=== PATIENT | female | born 1970 | race Caucasian/White ===

== ENCOUNTER 2018-11-20 16:42 | Inpatient (IN) | payer MEDICARE, MEDICAID ==
[~2018-11-20] VITALS: Ht 165.1 cm; Wt 133.4 kg
[~2018-11-20 16:42] MED LIST: AMITRIPTYLINE H25 MG PO; AMITRIPTYLINE H50 MG PO; AMLODIPINE BESYL5 MG PO; ASPIR 8181 MG PO; ASPIRIN EC81 MG PO; ATORVASTATIN CA80 MG PO; AUGMENTIN 875-1 EACH PO; CIPROFLOXACIN500 MG PO; DOXYCYCLINE HYC50 MG PO; HUMALOG100 UNITS/ IV; HYDROCHLOROTH12.5 M1 PO; HYDROCHLOROTH12.5 MG PO; HYDROCODON-ACE1 EA10 PO; IBUPROFEN200 MG PO; LANTUS100 UNITS/ SUB-Q; LISINOPRIL40 MG PO; METFORMIN HCL500 MG PO; METOPROLOL TART25 MG PO; MIRENA1 EACH IY; NICORETTE4 M1 BUCCAL; NORVASC5 MG PO; NOVOLOG100 UNITS/ SUB-Q; OXYCODONE HCL5 MG PO; PLAVIX75 MG PO; SIMVASTATIN10 MG PO; VITAMIN D5000 UNI1 PO
[2018-11-20] MEDS ORDERED: AMITRIPTYLINE H75 MG PO (17:08)
[2018-11-20] MEDS ORDERED: AUGMENTIN 875-1 EACH PO (17:14)
[2018-11-20] MEDS ORDERED: CIPRO500 MG PO (17:14)
--- NOTE | 2018-11-20 20:01 | NUR ---
AWAKE AND ALERT. PT WISHES TO TAKE MEDS AT TIMES THAT HE USUALLY TAKES AT HOME, WILL DO THIS. PT IS AWARE OF WT GAIN, DOES NOT WEIGH SELF DAILY AT HOME, WAS INFORMED THAT THIS IS SOMETHING HE SHOULD DO. PT IS AWARE OF RESTRICTING SODIUM AND CURRENT FLUID RESTRICTION.
--- NOTE | 2018-11-20 21:10 | NUR ---
PT ARRIVED TO ROOM 127 VIA STRETCHER AT 2030. PT ABLE TO STAND ON LEFT FOOT AND TRANSFER HERSELF ONTO THE BED. SHE IS ALERT/ORIENTED. REPORTS 10/10 CHRONIC, CONSTANT PAIN TO RIGHT FOOT, 2 TABS NORCO ADMINISTERED. LUNGS CLEAR, RA. HR REGULAR. BOWEL TONES ACTIVE. CB, NO SLIDING SCALE ADMINISTERED AND AFTER CHECKING WITH DR. LIZAMA, 60 UNITS LANTUS ADMINISTERED, PT EDUCATED TO INFORM RN IF SHE STARTS FEELING LIKE HER BLOOD SUGAR IS LOW. SANDWHICH BOX PROVIDED, PT ATE 100%. ALL TOES AMPUTATED. PERIPHERAL PULSES PALPABLE. CHRONIC NEUROPTHY PRESENT IN BLE. LATERAL RIGHT FOOT IS REDDEDNED AND SWOLLEN WITH 4 OPEN SPOTS. CLEANSED SKIN WITH WOUND WASH AND THEN COVERED WITH NON-ADHERENT PAD, 4X4, AND THE WRAPPED WITH GAUZE. SMALL AMOUNT OF SEROSANGUINOUS DRAINAGE NOTED. IV SITES PATENT, FLUIDS INFUSING WNL. PT HAS CALL LIGHT WITHIN REACH, DENIES FURTHER REQUESTS.
--- NOTE | 2018-11-21 | NUR ---
PT APPEARS TO BE SLEEPING, NO APPARENT DISTRESS. RESPIRATIONS EVEN AND UNLABORED, RR:10 SPO2:93% ON RA. HR REGULAR. DRESSING TO RIGHT FOOT HAS SMALL AMOUNT OF SHADOWING PRESENT, OTHERWISE IS INTACT. IVF INFUSING WNL. AFEBRILE. PT IS DUE TO VOID. WILL ALLOW FOR REST AND CONTINUE TO MONITOR.
--- NOTE | 2018-11-21 03:04 | NUR ---
PT CONTINUES TO SLEEP, NO APPARENT DISTRESS. RESPIRATIONS EVEN AND UNLABORED. RR:11, SPO2:96% ON RA, HR:91. IVF INFUSING WNL. DRESSING TO RIGHT FOOT REMAINS IN PLACE.
--- NOTE | 2018-11-21 04:15 | NUR ---
CHECKED PT'S BLOOD SUGAR SINCE IT WAS 77 PRIOR TO RECEIVING LANTUS, CB. ASSESSMENT COMPLETED, NO CHANGES FROM PREVIOUS ASSESSMENT. PT REPORTS NEED TO USE BATHROOM, STATES SHE DOESN'T WANT TO USE BSC. UP WITH SBA TO BATHROOM, PT FAIRLY STEADY ON FEET. VOIDED 600ML AND RETURNED TO BED. PT STATES THAT SHE HAS NO PAIN AT THIS TIME. NO FURTHER REQUESTS, CALL LIGHT WITHIN REACH.
--- NOTE | 2018-11-21 06:14 | NUR ---
PT SLEEPING, NO APPARENT DISTRESS. RESPIRATIONS EVEN AND UNLABORED, RR:22, SPO2:97% ON RA. HR:93.
--- NOTE | 2018-11-21 07:03 | NUR ---
DR. LIZAMA NOTIFIED OF CRITICAL LAB VALUE. HB.8. NO NEW ORDERS RECEIVED AT THIS TIME.
--- NOTE | 2018-11-21 07:30 | NUR ---
REPORT RECIEVED. PT IS RESTFUL IN BED, NO DISTRESS NOTED. IVF PATENT.
--- NOTE | 2018-11-21 07:40 | NUR ---
AMBULATING TO BR TO VOID 1000 ML OF CLEAR ZEESHAN URINE. USING CANE FOR AMBULATION. DENIES DIZZINESS WITH AMBULATION.
--- NOTE | 2018-11-21 08:00 | NUR ---
ASSESSMENT DONE. SMALL AMOUNT OF SEROSANG DRAINAGE NOTED ON DRESSING TO RIGHT FOOT. ACCUCHECK-130. ROUTINE MEDS AND INSULIN GIVEN. TALKED WITH PATIENT ABOUT PLAN OF CARE FOR DAY, PATIENT IS UNDESTANDING, NO QUESTIONS AT THIS TIME.
--- NOTE | 2018-11-21 09:15 | NUR ---
FIRST UNIT PRBC'S HUNG TO SIGHT.
--- NOTE | 2018-11-21 09:30 | NUR ---
TOOK BREAKFAST WELL. DENIES NAUSEA.
--- NOTE | 2018-11-21 10:23 | NUR ---
BLOOD INFUSING W/O PROBLEMS. PATIENT IS AWAKE AND WATCHING TV. DENEIS NEED FO FOR PAIN MEDICATION. IVF INUSING AT TKO RATE BLOOD INFUSING. IV SITES X 2 PATENT.
--- NOTE | 2018-11-21 11:10 | NUR ---
EDITH CERVANTES RN HERE TO PLACE PICC LINE. EDUCATION GIVEN TO PATIENT.
--- NOTE | 2018-11-21 11:45 | NUR ---
2ND UNIT OF BLOOD STARTED.
--- NOTE | 2018-11-21 12:00 | NUR ---
PICC LINE PLACED TO RIGHT UPPER ARM. TOLERATED PROCEDURE WELL.
--- NOTE | 2018-11-21 12:10 | NUR ---
PCXR DONE. WILL WAIT TO USE UNTIL CONFIRMED VIA RADIOLOGIST.
--- NOTE | 2018-11-21 12:16 | NUR ---
PICC INSERTION NOTE. ORDERS RECIEVED TO EVALUATE MANNY FOR POSSIBLE PICC INSERTION. AFTER REVIEWING THE CHART AND INTERVIEWING THE PT, NO ABSOLUTE CONTRAINDICATIONS WERE IDENTIFIED. RISKS AND COMPLICATIONS OF PICC LINES WERE DISCUSSED WITH THE PATIENT AND INFORMED CONSENT WAS SIGNED PRIOR TO THE START OF THE PROCEDURE. THE RIGHT BASILIC VEIN WAS ACCESSED ON THE FIRST ATTEMPT AND THERE WERE NO ISSUES ADVANCING THE GUIDEWIRE, INTRODUCER, OR PICC. BRISK DARK RED NONPULSATILE BLOOD WAS SEEN FLOWING FROM THE INTRODUCER PRIOR TO PICC INSERTION. THE RIGHT BASILIC VEIN WOULD ACCOMIDATE A 8FR LINE OR LARGER PER SITE ADAME U/S. PICC CARE TEAHING WAS DONE AND SHE UNDERSTANDS THAT SHE NEEDS TO SEEK MEDICAL ATTENTION FOR ANY QUESTIONS REGARDING HER PICC.
--- NOTE | 2018-11-21 13:03 | NUR ---
CONFIRMATION RECIEVED, OKAY TO USE PICC LINE.
--- NOTE | 2018-11-21 14:00 | NUR ---
AWAKE,DRESSING TO RIGHT FOOT REDRESSED PER DR. DL ORELLANA DID ASSESS R FOOT WOUND.
--- NOTE | 2018-11-21 18:03 | NUR ---
RESTFUL, WATCHING TV. IS W/O.
--- NOTE | 2018-11-21 19:05 | NUR ---
RECEIEVED REPORT ON PT FROM DAYSHIFT. PT IS AWAKE IN BED AT THIS TIME.
--- NOTE | 2018-11-21 21:16 | NUR ---
IN ROOM TO ASSESS PT AND ADMINISTER EVENING MEDICATIONS. BG CHECKED. DRESSING ON RT FOOT CHANGED PER MD ORDERS. VS TAKEN. PT DENIES FURTHER NEEDS. CALL LIGHT IS WITHIN REACH.
--- NOTE | 2018-11-21 23:06 | NUR ---
PT UP TO BATHROOM, WALKS INDEPENDENTLY WHILE HOLDING ONTO IV POLE. PT VOIDED 400ML AND IS NOW SITTING UP IN CHAIR. CALL LIGHT WITHIN REACH, PT DENIES NEEDS.
--- NOTE | 2018-11-21 23:31 | NUR ---
PT IS AWAKE IN CHAIR. SHE STATES HER PAIN IS "A LITTLE BETTER" BUT PAIN IS NORMAL AND SHE IS USED TO IT. SHE DENIES NEEDS AT THIS TIME. CALL LIGHT IS WITHIN REACH.
--- NOTE | 2018-11-22 00:10 | NUR ---
PT IS AWAKE IN CHAIR, ASSESSMENT AND VS COMPLETE. GAUZE ON RT FOOT HAS SOME DRIED SEROUS DRAINAGE NOTED. PT DENIES NEEDS. CALL LIGHT IS WITHIN REACH.
--- NOTE | 2018-11-22 01:20 | NUR ---
PT BACK TO BED AT THIS TIME. NO REQUESTS, CALL LIGHT WITHIN REACH.
--- NOTE | 2018-11-22 01:40 | NUR ---
PT IS RESTING WITH EYES CLOSED, RESPIRATIONS ARE EVEN AND NONLABORED. CALL LIGHT IS WITHIN REACH.
--- NOTE | 2018-11-22 02:41 | NUR ---
PT IS RESTING WITH EYES CLOSED, RESPIRATIONS ARE EVEN AND NONLABORED ON RA. CALL LIGHT IS WITHIN REACH.
--- NOTE | 2018-11-22 04:52 | NUR ---
ASSESSMENT COMPLETE. PT DENIES NEED FOR PAIN MEDICINE AT THIS TIME. SBA TO RESTROOM AND BACK TO BED. BLOOD DRAWN FOR LABS. PT DENIES NEEDS AT THIS TIME AND CALL LIGHT IS WITHIN REACH.
--- NOTE | 2018-11-22 06:30 | NUR ---
PT IS RESTING WITH EYES CLOSED, RESPIRATIONS ARE EVEN AND NONLABORED. CALL LIGHT IS WITHIN REACH.
--- NOTE | 2018-11-22 06:56 | NUR ---
PT REPORTS PAIN VERY HIGH YET ONLY REQUESTS NORCO AT BEDTIME. DRESSING ON RT FOOT DRAINS SEROUS FLUID AND WAS CHANGED LAST NIGHT PER MD ORDERS. SHE IS AFEBRILE VS WNL OTHER THAN HR A LITTLE TACHY AT TIMES. PICC LINE FLUSHES AND HAS GOOD BLOOD RETURN. SHE IS ON AN ADA DIET AND S/S INSULIN WITH MEALS. SHE AMBULATES SBA.
--- NOTE | 2018-11-22 07:30 | NUR ---
REPORT RECIEVED. PATIENT IS ASLEEP.
--- NOTE | 2018-11-22 08:00 | NUR ---
IS VERY DROWSY, ASSESSMENT DONE. REFUSING BREAKFAST AT THIS TIME. WILL HOLD HUMALOG INSULIN UNTIL READY TO EAT, ACCUCHECK 103. IVF PATENT. DRESSING TO RIGHT FOOT WITH SS DRAINAGE. WILL REDRESS WHEN LESS DROWSY.
--- NOTE | 2018-11-22 09:05 | NUR ---
ROUTINE INSULIN HAS BEEN GIVEN.
--- NOTE | 2018-11-22 09:10 | NUR ---
UP TO B TO VOID, THEN TO CHAIR. IS FAIRLY STABLE TO FEET. TO CHAIR.
--- NOTE | 2018-11-22 09:30 | NUR ---
IN CHAIR EATING BREAKFAST AND WATCHING TV. DENIES PROBLEMS.
--- NOTE | 2018-11-22 10:20 | NUR ---
IN CHAIR WATCHING TV, IS W/O C/O.
--- NOTE | 2018-11-22 12:30 | NUR ---
R FOOT CULT OBTAINED AND SENT TO LAB. R FOOT DRESSING REWRAPPED.
--- NOTE | 2018-11-22 13:00 | NUR ---
SITTING UP IN CHAIR FOR LUNCH. DENIES PAIN.
--- NOTE | 2018-11-22 13:26 | NUR ---
PATIENT SITTING UP IN BEDSIDE CHAIR, WAITING TO BE TRANSFERRED TO [facility] FLOOR. PATIENT EATING LUNCH AT THIS TIME, TELE LEADS REMOVED WITH RNS PERMISSION. PATIENT CALL LIGHT IN REACH. PATIENT BELONGINGS MOVED TO [facility] ROOM 113. NO OTHER NEEDS AT THIS TIME.
--- NOTE | 2018-11-22 13:40 | NUR ---
REPORT TO MED-SURG.
--- NOTE | 2018-11-22 13:46 | NUR ---
TO MED-SURG VIA CHAIR.
--- NOTE | 2018-11-22 13:47 | NUR ---
PT ARRIVED TO ROOM 113 ON MED SURG UNIT VIA CHAIR WITH АЛЕКСАНДР BIGGS AT 1345. VSS. ROOM AIR. NATHALY TO COMPLETE ASSESSMENT SOON. NO NEEDS AT THIS TIME.
--- NOTE | 2018-11-22 15:29 | NUR ---
ORDER RECEIVED FOR WOUND CONSULT. PATIENT INTERVIEWED AND SHE REPORTS LONG-STANDING HISTORY OF CHRONIC WOUND TO RIGHT FOOT (3 YEARS). PATIENT REPORTS SHE IS AWAITING A BKA AND HAS A CONSULT WITH DR. BAIRD IN [place] ON 12/04/18. PATIENT REPORTS AN ARTERIAL STUDY COMPLETED RECENTLY AND DR BLAS REFERRED HER TO [place] OR [facility]. SWELLING AND REDNESS ARE NOTED TO THE LATERAL ASPECT OF THE RIGHT FOOT. 4 OPEN WOUNDS ARE NOTED AND APPEAR TO BE SMALLER THAN WHEN ORIGINALLY ADMITTED ON 11/20/18. WOUNDS ARE CLEANED WITH BETADINE SOLUTION, FLUFFS GAUZE APPLIED OVER OPEN WOUNDS AND ROLL GAUZE APPLIED AND SECURED W/TAPE. PATIENT TOLERATES THE DRESSING CHANGE WELL AND AGREES WITH THE PLAN OF CARE, WHICH IS DRAINAGE MANAGEMENT AT THIS POINT. VERBAL REPORT GIVEN TO NATHALY AND DR SCHNEIDER AND BOTH VERBALIZE UNDERSTANDING.
--- NOTE | 2018-11-22 17:57 | NUR ---
PT SITTING UP IN CHAIR FOR DINNER. REPORTS 10/10 PAIN CONSTANT. REPORTS PAIN MEIDICATION DOES NOT DECREASE HER PAIN LEVEL IN LEGS. NO GRIMACING PRESENT, PT APPEARS RELAXED. DENIES NEEDS AT THIS TIME.
--- NOTE | 2018-11-22 19:05 | NUR ---
IN ROOM FOR REPORT, PT IS AWAKE IN CHAIR. SHE DENIES NEEDS AT THIS TIME. CALL LIGHT IS WITHIN REACH.
--- NOTE | 2018-11-22 20:35 | NUR ---
VITALS DONE. PT NEEDS NOTHING ELSE AT THIS TIME.
--- NOTE | 2018-11-22 21:45 | NUR ---
IN ROOM TO ASSESS PT AND ADMINISTER MEDICATIONS. PT REPORTS PAIN AT "92" PRN NORCO PROVIDED. PT REPORTS ONLY TAKING NORCO AT BEDTIME TO HELP DULL TO PAIN TO SLEEP. DRESSING ON RT FOOT IS INTACT WITH SEROUS DRAINAGE NOTED. PER ORDERS DRESSING IS TO BE CHANGED DAILY AND PRN, PT DENIED HAVING IT CHANGED TONIGHT SINCE IT WAS JUST CHANGED. PT HAS A POSITIVE ATTITUDE ABOUT THE POSSIBLE AMPUTATION OF LEG. FRESH WATER IS AT BEDSIDE AND PT DENIES FURTHER NEEDS. CALL LIGHT IS WITHIN REACH.
--- NOTE | 2018-11-22 22:56 | NUR ---
PT IS AWAKE IN CHAIR, SHE DENIES NEEDS AT THIS TIME. CALL LIGHT IS WITHIN REACH. SHE REPORT PAIN IS DECREASED BUT SHE CONTINUES TO RATE IT IN THE "90'S" WHICH IS NORMAL PER PT.
--- NOTE | 2018-11-23 00:39 | NUR ---
PT IS RESTING WITH EYES CLOSED, RESPIRATIONS ARE EVEN AND NONLABORED. CALL LIGHT IS WITHIN REACH.
--- NOTE | 2018-11-23 02:14 | NUR ---
PT IS RESTING WITH EYES CLOSED, RESPIRATIONS ARE EVEN AND NONLABORED. CALL LIGHT IS CLOSE.
--- NOTE | 2018-11-23 04:13 | NUR ---
PT IS RESTING WITH EYES CLOSED, RESPIRATIONS ARE EVEN AND NONLABORED. CALL LIGHT IS CLOSE.
--- NOTE | 2018-11-23 05:52 | NUR ---
BLOOD DRAWN FROM PICC LINE, PT DENIES NEEDS AT THIS TIME. SHE WOULD LIKE TO WAIT ON DRESSING CHANGE UNTIL LATER TODAY. CALL LIGHT IS WITHIN REACH.
--- NOTE | 2018-11-23 05:53 | NUR ---
PT SLEPT WELL THROUGH THE NIGHT. DRESSING CHANGES ARE DAILY/PRN. PT WANTED TO WAIT UNTIL LATER TODAY FOR ANOTHER CHANGE. SHE IS ON AN ADA DIET, SHE IS SBA WITH A CANE. SHE STARTED BOWEL CARE LAST NIGHT. PICC IN RT UPPER ARM IS HEPLOCKED, HAS BOOD BLOOD RETURN AND FLUSHES WELL. SHE RECEIVES IV ERTAPENUM. BTKA CONSULT IS SCHEDULED FOR Dec. POSSIBLE DC TODAY IF IV ABX THERAPY IS WORKED OUT.
--- NOTE | 2018-11-23 06:14 | NUR ---
VITALS AND I&OS DONE AND CHARTED. FRESH ICE WATER GIVEN. BEDSIDE TABLE AND CALL LIGHT IN REACH.
--- NOTE | 2018-11-23 07:00 | NUR ---
BEDSIDE HANDOFF REPORT RECEIVED FROM TRANSIT VEHICLE INSPECTOR RN. PT SLEEPING, LEFT UNDISTURBED.
--- NOTE | 2018-11-23 08:05 | NUR ---
DID PATIENT'S BLOOD SUGAR. BROUGHT IN HER BREAKFAST. SHE SAID SHE WOULD LIKE TO TAKE A SHOWER SOMETIME TODAY IF SHE CAN.
--- NOTE | 2018-11-23 09:10 | NUR ---
PT RETURNING FROM BATHROOM, AMBULATING WITHOUT DIFFICULTY. PT DENIES PAIN. PT ON ROOM AIR, LUNG SOUNDS CLEAR. PT WITH EDEMA TO BLE, 2+. DRESSING TO RIGHT FOOT SATURATED, DISCUSSED SHOWER AND THEN DRESSING CHANGE. PICC LINE TO RUE HEP LOCKED, DRESING INTACT. DISCUSSED PLAN OF CARE FOR THE DAY. MORNING MEDICATIONS AND ASSESSMENT COMPLETED. PT DENIES OTHER NEEDS AT THIS TIME.
[2018-11-23] MEDS ORDERED: ST. JOSEPH ASPI81 MG PO (10:51)
--- NOTE | 2018-11-23 11:45 | NUR ---
PT GIVEN 5 UNITS HUMALIN AND 3 UNITS SS HUMALOG FOR BLOOD GLUCOSE 204. PT EATING LUNCH. PT TO SHOWER AFTER LUNCH, THEN PLAN FOR DRESSING CHANGE TO FOOT. PICC LINE FLUSHED, PATENT, BLOOD RETURN PRESENT, HEP LOCKED. PT DENIES OTHER NEEDS AT THIS TIME.
[2018-11-23] MEDS ORDERED: VICTOZA 2-0.6 MG/0.1 SUB-Q (11:51)
--- NOTE | 2018-11-23 11:52 | NUR ---
MED REC COMPLETE
--- NOTE | 2018-11-23 11:54 | NUR ---
PT SITTING IN CHAIR, WATCHING TV. SHE IS ALERT AND ORIENTED TO SELF-VERY ENGAGED IN CONVERSATION. PT MENTIONED THAT SHE IS WAITING FOR A CONSULTATION FROM A VASCULAR SURGEON FOR AMPUTATION OF R LEG BELOW THE KNEE. PT SEEMS VERY MATTER OF FACT SHE STATES. SEEMS TO BE ALMOST CAVALIAR ABOUT WHAT LIES AHEAD. PT HAS A CHILD TO CARE FOR AND NEEDS TO BE BETTER ABLE TO BE ABOUT THIS. PT DECLINED PRAYER, GAVE A BLESSING, PT THANKED ME. WILL FOLLOW NEEDED
--- NOTE | 2018-11-23 14:15 | NUR ---
PT COMPLETED WITH SHOWER. DRESSING CHANGED PER ORDER, WOUND WITH 3 OPENINGS ERASER SIZE, SEROSANGUINOUS DRAINAGE TO OLD DRESSING, SITE CLEANSED WITH BETADINE, CLEAN NON ADHERENT DRESSING AND GAUZE ROLL APPLIED, SECURED WITH TAPE. PICC LINE DRESSING COMPLETED DUE TO DRESSING PEELING FROM CORNER. EDEMA TO BLE UNCHANGED. PT DENIES OTHER NEEDS AT THIS TIME. MD TO BEDSIDE, DISCUSSED TRANSFER TO [facility].
--- NOTE | 2018-11-23 17:25 | NUR ---
PT SITTING IN CHAIR EATING DINNER. IV REBA STARTED, OK FROM PHARMACY TO GIVE DOSE EARLY DUE TO PENDING TRANSPORT FOR TRANSFER. PT GIVEN 1 UNIT SS INSULIN FOR BLOOD GLUCOSE 159. PT DENIES OTHER NEEDS AT THIS TIME. UPDATED ON ESTIMATED TIME FOR TRANSPORT.
--- NOTE | 2018-11-23 18:20 | NUR ---
IV ABX INFUSION COMPLETED. PT HEPARIN LOCKED. PT DENIES OTHER NEEDS AT THIS TIME.
--- NOTE | 2018-11-23 18:45 | NUR ---
REPORT CALLED TO PEARL AT [facility].
--- NOTE | 2018-11-23 20:41 | NUR ---
[facility] HERE TO TRANSPORT PT TO [facility]. ALERT AND ORIENTED, READY FOR DC, C/O MILD LEGS PAIN BUT DENIES ROBI FOR PAIN MEDS. USES CANE TO GET ABOUT. PICC LINE INTACT.
--- NOTE | 2018-11-23 20:42 | NUR ---
DC TO [facility] AT THIS TIME VIA STRETCHER, ALL BELONGINGS AND DC INSTRUCTIONS WITH PT
== END 2018-11-23 20:43 | disposition short-term general hospital (02) | DRG 872 ==
LOC: ED 16:42 → CCU 19:06 → MS 11-22 13:45
PROVIDERS: ADMIT Internal Medicine
PROC: 02HV33Z Insertion of Infusion Device into Superior Vena Cava, Percutaneous Approach (ICD-10-PCS; principal; 2018-11-23)
DX: A40.1 Sepsis due to streptococcus, group B (principal); E11.51 Type 2 diabetes mellitus with diabetic peripheral angiopathy without gangrene; Z79.4 Long term (current) use of insulin; F17.210 Nicotine dependence, cigarettes, uncomplicated; D64.9 Anemia, unspecified; I10 Essential (primary) hypertension; E11.621 Type 2 diabetes mellitus with foot ulcer; L97.519 Non-pressure chronic ulcer of other part of right foot with unspecified severity; E78.5 Hyperlipidemia, unspecified
CPT/HCPCS: 36415; 36430; 36569; 36573; 71045; 80048; 80053; 83540; 83605; 83615; 83735; 84100; 84466; 85025; 85651; 86140; 86850; 86900; 86901; 86920; 87040; 87070; 87075; 87205; 96374; 99285-25; C1751; J1335; J1650; J1815; J3475; J7030; J7040; P9016

== ENCOUNTER 2019-11-15 18:42 | Emergency (ER) | payer MEDICARE, MEDICAID ==
[~2019-11-15] VITALS: Ht 165.1 cm; Wt 133.4 kg
[~2019-11-15 18:42] MED LIST changes: +AMITRIPTYLINE H75 MG PO; +CIPRO500 MG PO; +ST. JOSEPH ASPI81 MG PO; +VICTOZA 2-0.6 MG/0.1 SUB-Q
--- OUTSIDE RECORDS SUMMARY | 2019-11-15 18:46 | XMS ---
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 [place] has no Care Guidelines for this patient. Fani VISIT COUNT (12 MO.) 1 [facility] 2 [facility] TOTAL 3 NOTE: Visits indicate total known visits. ED/C VISIT TRACKING (12 MO.) 11/15/2019 18:43 [facility] [place] TYPE: Emergency COMPLAINT: - N/V/D [facility]: Emergency DIAGNOSES: - Infection following a procedure, deep incisional surgical site, initial encounter - Referral - Wound Check - Other specified abnormal findings of blood chemistry - Acquired absence of right leg below knee 11/20/2018 16:43 [facility]IAN Amin TYPE: Emergency COMPLAINT: - FEVER INPATIENT VISIT TRACKING (12 MO.) [facility] TYPE: General Medicine DIAGNOSES: - Infection following a procedure, deep incisional surgical site, initial encounter - Acquired absence of right leg below knee - Other specified abnormal findings of blood chemistry 12/05/2018 14:02 [facility] TYPE: Inpatient Rehab DIAGNOSES: - Right BKA 11/23/2018 22:26 [facility] TYPE: Recovery DIAGNOSES: - uti 11/20/2018 19:06 [facility] Amin TYPE: Medical Surgical COMPLAINT: - SEPSIS DIAGNOSES: - 1 Type 2 diabetes w diabetic peripheral angiopath w/o gangren - Anemia, unspecified - Anemia, unspecified - group home (current) use of insulin - 1 Type 2 diabetes mellitus with foot ulcer - Hyperlipidemia, unspecified - Sepsis due to streptococcus, group B Sepsis du - Nicotine dependence, cigarettes, uncomplicated - Essential (primary) hypertension - 1 Type 2 diabetes w diabetic peripheral angiopath w/o gangren - group home (current) use of insulin - Non-prs chronic ulcer oth prt right foot w unsp severity - Non-prs chronic ulcer oth prt right foot w unsp severity - 1 Type 2 diabetes mellitus with foot ulcer - Essential (primary) hypertension - Hyperlipidemia, unspecified - Nicotine dependence, cigarettes, uncomplicated [email or web address]
== END 2019-11-15 21:36 | disposition home or self-care (01) ==
LOC: ED 18:42
DX: K52.9 Noninfective gastroenteritis and colitis, unspecified (principal); E11.9 Type 2 diabetes mellitus without complications; I10 Essential (primary) hypertension; E78.00 Pure hypercholesterolemia, unspecified; Z79.899 Other long term (current) drug therapy
CPT/HCPCS: 80053; 81001; 83735; 85025; 96374; 99284-25; J2550; J7030

== ENCOUNTER 2020-01-18 04:27 | Emergency (ER) | payer MEDICARE, MEDICAID ==
[~2020-01-18] VITALS: Ht 165.1 cm; Wt 133.6 kg
--- OUTSIDE RECORDS SUMMARY | 2020-01-18 04:30 | XMS ---
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 E[facility] (12 MO.) [facility] TOTAL 3 NOTE: Visits indicate total known visits. ED/UCC VISIT TRACKING (12 MO.) 01/18/2020 04:27 [facility] TYPE: Emergency COMPLAINT: - WEAKNESS 11/15/2019 18:43 [facility] TYPE: Emergency COMPLAINT: - N/V/D DIAGNOSES: - Essential (primary) hypertension - Nausea with vomiting, unspecified - Pure hypercholesterolemia, unspecified - Noninfective gastroenteritis and colitis, unspecified - Other residential (current) drug therapy - 1 Type 2 diabetes mellitus without complications 01/29/2019 13:01 [facility] [place] TYPE: Emergency DIAGNOSES: - Infection following a procedure, deep incisional surgical site, initial encounter - Referral - Wound Check - Other specified abnormal findings of blood chemistry - Acquired absence of right leg below knee INPATIENT VISIT TRACKING (12 MO.) 01/29/2019 13:01 [facility] Annabel BRYAN TYPE: General Medicine DIAGNOSES: - Infection following a procedure, deep incisional surgical site, initial encounter - Acquired absence of right leg below knee - Other specified abnormal findings of blood chemistry [email or web address]
[2020-01-18] MEDS ORDERED: NOVOFINE AUTOC1 EACH MISC (05:18)
[2020-01-18] MEDS ORDERED: HUMALOG100 UNIT/2 SUB-Q (05:18)
[2020-01-18] MEDS ORDERED: VICTOZA 2-0.6 MG/0.1 SUB-Q (05:19)
[2020-01-18] MEDS ORDERED: PLAVIX75 MG PO (05:19)
--- NOTE | 2020-01-18 09:51 | EKG ---
[facility] [address] [place] [address] Signed Sinus tachycardia Otherwise normal ECG When compared with ECG of 12-JAN-2017 14:31, Nonspecific T wave abnormality no longer evident in Inferior leads Confirmed by SUSU SALINAS MD ([id number]) on 01/18/2020 9:51:35 AM Electronically Signed By: SUSU SALINAS MD 01/18/20 0951 PATIENT NAME: MANNY MORALES Electrocardiogram DATE OF : 70 PHYSICIAN: SUSU SALINAS MD REPORT #: [id number] REPORT IS CONFIDENTIAL AND NOT TO BE RELEASED WITHOUT AUTHORIZATION
== END 2020-01-18 15:45 | disposition short-term general hospital (02) ==
LOC: ED 04:27
DX: A41.9 Sepsis, unspecified organism (principal); E11.10 Type 2 diabetes mellitus with ketoacidosis without coma; N17.9 Acute kidney failure, unspecified; N12 Tubulo-interstitial nephritis, not specified as acute or chronic; I10 Essential (primary) hypertension; Z88.1 Allergy status to other antibiotic agents; Z88.8 Allergy status to other drugs, medicaments and biological substances; Z88.5 Allergy status to narcotic agent; Z79.899 Other long term (current) drug therapy; Z79.4 Long term (current) use of insulin
CPT/HCPCS: 51702; 71045; 74176; 80053; 81001; 82010; 83605; 85025; 87040; 87077; 87088; 87186; 87502; 93005; 93010; 99291; 99292; J0692; J1815; J7030

== ENCOUNTER 2021-06-09 23:18 | Inpatient (IN) | payer MEDICARE, MEDICAID ==
[~2021-06-09] VITALS: Ht 165.1 cm; Wt 139.2 kg
[~2021-06-09 23:18] MED LIST changes: -AMITRIPTYLINE H75 MG PO; +AMITRIPTYLINE100 MG PO; +HUMALOG100 UNIT/2 SUB-Q; -MIRENA1 EACH IY; +MIRENA1 EACH VAGINAL; +NOVOFINE AUTOC1 EACH MISC
[2021-06-10] MEDS ORDERED: TRULICITY1.5 MG/0.5 SUB-Q (02:57)
--- NOTE | 2021-06-10 03:40 | NUR ---
PT ARRIVED TO ROOM 128 AT 0228 VIA STRETCHER. PT ABLE TO STAND AND PIVOT ONTO BED. 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 LUNGS COARSE WITH CRACKLES NOTED IN BASES, 10L VIA OXYMASK IN PLACE, R.T. IN TO SET UP BIPAP. HR REGULAR, RATE IN 90'S. BOWEL TONES ACTIVE, DENIES NAUSEA. SKIN DRY/FLAKY, ALL TOES AMPUTATED TO LEFT FOOT AND RIGHT LEG AKA. NON-PITTING EDEMA PRESENT IN LLE. IV INTACT AND PATENT, FLUIDS INFUSING PER EMAR. PT UP TO BSC, VOIDED 450ML CONCENTRATED URINE, AND RETURNED TO BED. PT DENIES SOB AND CHEST PAIN AT THIS TIME. DENIES FURTHER REQUESTS. CALL LIGHT WITHIN REACH. R.T. IN ROOM AT THIS TIME TO PLACE PT ON BIPAP 10/28 @ 50%.
--- NOTE | 2021-06-10 04:47 | NUR ---
PT WORE BIPAP FROM 0400 TO ~0440 AND WAS ABLE TO SLEEP A BIT. WOKE UP COUGHING AND NEEDED TO TAKE A BREAK FROM BIPAP. OXYMASK IN PLACE AT 10L. PT DENIES NEEDS, CALL LIGHT WITHIN REACH.
--- NOTE | 2021-06-10 05:38 | NUR ---
TITRATED OXYGEN TO 12L FOR SPO2 88-89%, PT DOES NOT WANT TO WEAR BIPAP AT THIS TIME.
--- NOTE | 2021-06-10 06:00 | NUR ---
INFUSION OF 1L NS COMPLETED, IV SALINE LOCKED AND INTACT. SCHEDULED LEVAQUIN GIVEN. FRESH ICE WATER PROVIDED. PT DENIES NEEDS AT THIS TIME.
--- NOTE | 2021-06-10 09:23 | NUR ---
resistance welder assisted pt. to use the commode. no other needs at this time
--- NOTE | 2021-06-10 09:30 | NUR ---
Spoke with Sharifa. She states she lives in her two story, childhood home. She lives on the main floor and her mom and brother live in an apartment on the lower floor. 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 She uses [employer] for energy assistance and is aware of food thomas in the area. Pt states she does use the food bank, but only uses when needed as there are people who are more needy. Pt denies need for transportation as her mom or brother drive her. Pt does all the cooking and mom does the cleaning. Pt denies needs at this time, but does state she has not had new glasses in 10 years as she cannot afford the eye exam. I will find a resource for this. Pt plans on dc to home with her family when she is cleared medically Pt has been disabled for 6 years.
--- NOTE | 2021-06-10 10:27 | NUR ---
DR. SALINAS IN TO ASSESS PT AND UPDATE ON PLAN OF CARE.
--- NOTE | 2021-06-10 11:12 | NUR ---
THIS RN IN TO DRAW ORDERED LABS AND ADMINISTER SCHEDULED MEDICATIONS. PT SITTING UP IN BED ON 5L O2 NC, SPO2 AT 92%. PT IS ALERT AND ORIENTED AT THIS TIME. NEW IV STARTED ON R ARM BY CATINA UP, RAIN AND BMP DRAWN AT THAT TIME. SCHEDULED MEDICATIONS ADMINISTERED ALONG WITH PRN COUGH MEDICATIONS (SEE MAR) PT HAD COMPLAINTS OF A COUGH. PT NOW SITTING UP IN BED ON THE PHONE, WATER PROVIDED. PT REPORTS NO FURTHER NEEDS AT THIS TIME WHEN ASKED, WILL CONTINUE PLAN OF CARE. CALL LIGHT IN REACH, BED IN LOWEST POSITION.
--- NOTE | 2021-06-10 11:23 | NUR ---
Left message for CHW asking if she knows of any programs in the area for free glasses. Received fax from Audrey with paper work to request free glasses and from [employer]. Paper work given to Sharifa and requested she complete.
--- NOTE | 2021-06-10 11:51 | NUR ---
LAB CALLED DOWN TO NOTIFY OF PT'S CRITICAL LAB VALUE, GLUCOSE WAS 616. BLOOD GLUCOSE CHECKED AT BEDSIDE, READING STATED IT WAS HIGH, >600. DR. SALINAS NOTIFIED OF PT'S POTASSIUM AND GLUCOSE LEVELS. DR SALINAS TO INPUT NEW ORDERS, WILL CONTINUE PLAN OF CARE.
--- NOTE | 2021-06-10 12:29 | NUR ---
THIS RN IN TO ASSESS PT AND ADMINISTER SCHEDULED MEDICATION. PT SITTING UP IN BED AT THIS TIME AWAKE AND ALERT ON 5L O2 NC, SPO2 AT 91%. SCHEDULED MEDICATION ADMINISTERED ORDERED (SEE MAR) AND PT NOW ON ORDERED IVF. PT ASSESSED AT THIS TIME, LUNGS ARE COARSE THROUGHOUT, PT DENIES SOB. PT ALSO DENIES ANY PAIN AT THIS TIME. PT NOW EATING LUNCH AT THIS TIME AND REPORTS NO FURTHER NEEDS, WILL CONTINUE PLAN OF CARE. CALL LIGHT IN REACH, BED IN LOWEST POSITION.
--- NOTE | 2021-06-10 12:45 | NUR ---
THIS RN IN TO ADMINISTER SCHEDULED MEDICATION KAYEXELATE. PT EATING LUNCH AT THIS TIME AND STATES SHE WILL DRINK HER MEDICATION SHORTLY. PT REPORTS NO FURTHER NEEDS AT THIS TIME, WILL CONTINUE PLAN OF CARE
--- NOTE | 2021-06-10 14:03 | NUR ---
PT ALERT, ORIENTED AND SITTING ON SIDE OF BED. PT STATED SHE DID NOT SLEEP WELL LAST NIGHT-BUT NEVER GETS MUCH SLEEP IN HOSPITALS. HAD GOOD VISIT [facility] PT, STILL TRIES TO KEEP A SENSE OF HUMOR. PT REQUESTED PRAYER, GAVE G.POST AND BLESSING WILL FOLLOW
--- NOTE | 2021-06-10 14:42 | NUR ---
pt. up in chair. bed bath, hair done, new gown, bed linens changed, no other needs at this time. call light with in reach
--- NOTE | 2021-06-10 14:51 | NUR ---
BLOOD SUGAR ASSESSED AT THIS TIME AND WAS 429, SCHEDULED INSULIN ADMINISTERED PER SLIDING SCALE. SCHEDULED MEDICATIONS ADMINISTERED (SEE MAR). CATINA UP AND DIAN BADILLO IN TO HELP PT WITH A BED BATH/WIPE. LINENS CHANGED AT THIS TIME. PT NOW SITTING AT THE BEDSIDE RECLINER IVF INFUSING AND ON 4.5 L O2 NC, SPO2 AT 91%. PT REPORTS NO FURTHER NEEDS AT THIS TIME, PT FINISHED DRINKING KAYEXELATE, WILL CONTINUE PLAN OF CARE. CALL LIGHT WITHIN REACH.
--- NOTE | 2021-06-10 15:06 | NUR ---
THIS RN IN TO CHECK ON PT. PT SITTING IN BEDSIDE RECLINER AND WAS HAVING A SMALL COUGHING FIT. PT SPO2 AT 93% ON THE 4.5 L O2 NC. PT REQUESTED PRN COUGH MEDICATION. PRN ROBITUSSIN ADMINSITERED AT THIS TIME. PT REPORTS NO FURTHER NEEDS AT THIS TIME. PT SITTING AT BEDSIDE RECLINER, CALL LIGHT IN REACH, WILL CONTINUE PLAN OF CARE.
--- NOTE | 2021-06-10 15:17 | NUR ---
PHYSICAL THERAPIST IN ROOM WITH PT AT THIS TIME.
--- NOTE | 2021-06-10 15:42 | NUR ---
pt up to bedside commode to urinate. (700ml) then back to chair. no other needs at this time. call light within reach
--- NOTE | 2021-06-10 16:01 | EKG ---
[facility] [address] [facility] [place] [address] Signed Normal sinus rhythm Low voltage QRS Borderline ECG When compared with ECG of 18-JAN-2020 05:01, No significant change was found Confirmed by SUSU SALINAS MD ([id number]) on 06/10/2021 4:01:05 PM Electronically Signed By: SUSU SALINAS MD 06/10/211 PATIENT NAME: MANNY MORALES Electrocardiogram DATE OF : 70 PHYSICIAN: SUSU SALINAS MD REPORT #: [id number] REPORT IS CONFIDENTIAL AND NOT TO BE RELEASED WITHOUT AUTHORIZATION
--- NOTE | 2021-06-10 16:24 | NUR ---
PT. SITTING AT RECLINER AT THIS TIME ON 3.5L O2 NC AWAKE AND ALERT. PT REPORTS NO PAIN AND DENIES SHORTNESS OF BREATH AT THIS TIME. PT ASSESSED AT THIS TIME, LUNGS DIMINISHED THROUGHOUT WITH WHEEZES PRESENT. R.T INFORMED THIS RN HE WOULD BE IN SOON TO DO A NEB TREATMENT. PT REPORTS NO NEEDS AT THIS TIME, WILL CONTINUE PLAN OF CARE. CALL LIGHT WITHIN REACH.
--- NOTE | 2021-06-10 16:48 | NUR ---
Praveen IN PT'S ROOM AT THIS TIME ASSESSING PT AND DOING SCHEDULED NEB TREATMENT.
--- NOTE | 2021-06-10 16:51 | NUR ---
PT PLACED ON 3L O2 NC AT THIS TIME BY R.T. PT MAINTAINING SPO2 AT 94-97%. WILL CONTINUE PLAN OF CARE.
--- NOTE | 2021-06-10 17:23 | NUR ---
THIS RN IN TO ADMINISTER SCHEDULED MEDICATION. PT SITTING IN RECLINER AWAKE AND ALERT ON 3L O2 NC, SPO2 AT 91%. BLOOD SUGAR CHECKED AND WAS 402. INSULIN ADMINISTERED ORDERED AND PER SLIDING SCALE ALONG WITH SCHEDULED ATORVASTATIN. PT REPORTS NO FURTHER NEEDS AT THIS TIME AND IS NOW EATING HER DINNER, WILL CONTINUE PLAN OF CARE. CALL LIGHT IN REACH, IVF INFUSING ORDERED.
--- NOTE | 2021-06-10 18:01 | NUR ---
PT SITTING AT BEDSIDE RECLINER AT THIS TIME AWAKE AND ALERT. PT REPORTS NO SHORTNESS OF BREATH. SPO2 NOTED TO BE 88-89%, O2 TITRATED TO 4L NC SPO2 NOW AT 90-91%. PT FINISHED WITH DINNER AT THIS TIME AND REPORTS NO FURTHER NEEDS, CALL LIGHT IN REACH, BED IN LOWEST POSITION. WILL CONTINUE PLAN OF CARE.
--- NOTE | 2021-06-10 18:37 | NUR ---
THIS RN IN TO ADMINISTER KAYEXELATE. PT ABLE TO TAKE ALL MEDICATION AT ONCE WITH GATORADE. PT REPORTS NO FURTHER NEEDS AT THIS TIME AND IS AWAKE AND ALERT ON 4.5 L O2 NC, SPO2 AT 94%. WILL CONTINUE PLAN OF CARE, CALL LIGHT WITHIN REACH.
[2021-06-10] MEDS ORDERED: GABAPENTIN300 MG PO (18:43)
--- NOTE | 2021-06-10 19:00 | NUR ---
IVF COMPLETE AT THIS TIME, PT SALINE LOCKED. PT REPORTS NO FURTHER NEEDS AT THIS TIME, WILL CONTINUE PLAN OF CARE.
--- NOTE | 2021-06-10 20:05 | NUR ---
assisted patient to bsc. patient did well. required assistance with austin care. patient voided 600 mls. fresh ice water provided. patient request pm snack, supervisor cleaning and annealing called.
--- NOTE | 2021-06-10 20:33 | NUR ---
SHIFT REPORT RECEIVED FROM CATINA BURGESS. PT SITTING UP IN CHAIR AT THIS TIME. DENIES PAIN. LUNGS DIM WITH WHEEZES THROUGHOUT, OXYGEN AT 4.5L VIA NC. HR REGULAR. DENIES CHEST PAIN OR SOB. BOWEL TONES ACTIVE, DENIES NAUSEA. SKIN GROSSLY INTACT, RIGHT AKA AND LEFT TOE AMPUTATIONS PRESENT. EDEMA IN LLE. IV SITES INTACT AND PATENT, SALINE LOCKED. DISCUSSED PLAN OF CARE WITH PT, QUESTIONS ANSWERED. NO FURTHER REQUESTS AT THIS TIME, CALL LIGHT WITHIN REACH.
--- NOTE | 2021-06-10 21:24 | NUR ---
SCHEDULED MEDICATIONS GIVEN PER EMAR. CB, 15 UNITS HUMALOG GIVEN. BLOOD DRAWN FROM IV FOR SCHEDULED BMP LAB. PT CONTINUES TO SIT UP IN CHAIR, DENIES NEEDS. CALL LIGHT WITHIN REACH.
--- NOTE | 2021-06-10 22:02 | NUR ---
SCHEDULED MED GIVEN PER EMAR. PT CONTINUES TO SIT UP IN CHAIR, STATES SHE IS UNSURE IF SHE'LL BE ABLE TO SLEEP TONIGHT. OXYGEN REMAINS IN PLACE, PT DENIES COMPLAINTS. CALL LIGHT WITHIN REACH.
--- NOTE | 2021-06-11 | NUR ---
ASSESSMENT COMPLETED, PT CONTINUES TO SIT UP IN CHAIR. LUNGS SOUND DIM/COARSE THROUGHOUT, 4L O2 VIA NC IN PLACE. VITAL SIGNS STABLE. REMAINDER OF ASSESSMENT UNCHANGED. FRESH ICE WATER PROVIDED, PT DENIES FURTHER REQUESTS AT THIS TIME. CALL LIGHT AND BELONGINGS WITHIN REACH.
--- NOTE | 2021-06-11 02:13 | NUR ---
CB, 15 UNITS HUMALOG ADMINISTERED. PT UP TO BSC, VOIDED 800ML URINE AND RETURNED TO CHAIR. FRESH ICE WATER PROVIDED. PT DENIES FURTHER NEEDS AT THIS TIME.
--- NOTE | 2021-06-11 02:50 | NUR ---
PT REPORTING THAT HER PHANTOM PAIN IN RLE IS MORE PAINFUL & BOTHERING HER MORE. TELEPHONE ORDER RECEIVED FOR PRN NORCO AND ONE TIME DOSE OF GABAPENTIN, GIVEN AT THIS TIME. PT DENIES FURTHER REQUESTS, CALL LIGHT WITHIN REACH.
--- NOTE | 2021-06-11 04:17 | NUR ---
ASSESSMENT COMPLETED. PT STATES PHANTOM LIMB PAIN IS "ABOUT THE SAME" BEFORE. LUNGS ARE DIM THROUGHOUT WITH EXPIRATORY WHEEZES IN UPPERS AND COARSE IN LOWERS. OXYGEN REMAINS AT 4L NC. REMAINDER OF ASSESSMENT UNCHANGED. PT DENIES FURTHER REQUESTS AT THIS TIME, CALL LIGHT WITHIN REACH.
--- NOTE | 2021-06-11 05:56 | NUR ---
SCHEDULED MEDS GIVEN PER EMAR. BLOOD DRAWN FROM SALINE LOCK FOR MORNING LABS. PT DENIES NEEDS AT THIS TIME.
--- NOTE | 2021-06-11 09:09 | NUR ---
excelsior cutter assisted pt to use bedside commode. no other needs at this time
[2021-06-11] MEDS ORDERED: LEVOFLOXACIN250 MG PO (09:40)
[2021-06-11] MEDS ORDERED: IPRAT-ALBUT 0.5-3 ML INH (09:41)
[2021-06-11] MEDS ORDERED: NICOTINE LOZENGE4 MG BUCCAL (09:41)
[2021-06-11] MEDS ORDERED: AMLODIPINE BESY10 MG PO (09:42)
[2021-06-11] MEDS ORDERED: BENZONATATE100 MG PO (09:42)
[2021-06-11] MEDS ORDERED: PREDNISONE20 MG PO (09:44)
[2021-06-11] MEDS ORDERED: AEROECLIPSE II1 EACH MISC (09:45)
--- NOTE | 2021-06-11 09:45 | NUR ---
Received order from Dr. Layne for Nebulizer and Ipratropim/albuterol and home qualifier in process. Face sheet, RX for meds/Nebulizer and qualifer, dc summary and H&P faxed to [facility] (pts preference as she had In Home in the past). Pt denies other needs for dc and would like to dc as soon as possible. Discussed 02 will need to arrive from [facility] and we will need to confirm time it will be here before pt can dc. Understanding stated. Mom will transport her home.
[2021-06-11] MEDS ORDERED: DOXAZOSIN MESYLA1 MG PO (09:46)
--- NOTE | 2021-06-11 11:18 | NUR ---
PER SIMIN AT [facility], ORDERS FOR PATIENTS O2, NEBULIZER AND MEDICATION RECVD. SIMIN TO FAX ORDER OVER FOR SIGNATURE BY MD. SIMIN ADVISED MD SHOULD SEND RX FOR TEMPORARY SUPPLY OF MEDICATION SHIPPING MAY TAKE A FEW DAYS. SIMIN STATES EQUIPMENT TO BE DELIVERED BY 1600 TODAY, PATIENT MAY BE SENT HOME WITH PORTABLE TANKS X2 IF SHE IS READY FOR DISCHARGE AT THIS TIME. ZANDRA DOMINIQUE UPDATED.
--- NOTE | 2021-06-11 11:25 | NUR ---
MED REC COMPLETE
--- NOTE | 2021-06-11 11:30 | NUR ---
Spoke with Dr. Layne and updated pt neb meds will be shipped and will deliver on Tuesday. He spoke with the pharmacy and he will stat fill 6 Ipratropium/Albterol for pt to use. Per Brandy at [facility] 02 and Nebulizer will be delivered at 4 pm today. They request pt go home on [facility] 02 with 2 tanks. Updated Ghazala Rn in CCU and delivered to portable tanks to CCU. Pt denies other needs and plans on dc to home with mom.
--- NOTE | 2021-06-11 12:06 | NUR ---
pt sitting up in the chair alert and oriented x4. pt has call light within reach, waiting for lunch. Resp Therapy in the room giving a neb treatment at this time. pt requests and is given fresh ice water. pt denies nausea and SOB, pt reports pain is at 5/10 at this time, she knows it is too early for pain medications.
--- NOTE | 2021-06-11 13:43 | NUR ---
PT TRANSFERS EASILY FROM CHAIR TO WHEELCHAIR WITH MINIMAL STANDBY ASSIST. ALL PERSONAL BELONGINGS RETURNED TO PT. IV SITES ARE OUT WNL. PT TRANSPORTED OFF THE UNIT BY DIAN BADILLO UP TO THE FRONT OF THE HOSPITAL WHERE PT'S MOTHER IS GOING TO PICK HER UP.
== END 2021-06-11 13:50 | disposition home or self-care (01) | DRG 189 ==
LOC: ED 23:18 → CCU 06-10 01:06
PROVIDERS: ADMIT Internal Medicine; ATTEND Internal Medicine
PROC: 5A09357 Assistance with Respiratory Ventilation, Less than 24 Consecutive Hours, Continuous Positive Airway Pressure (ICD-10-PCS; principal; 2021-06-10)
DX: J96.21 Acute and chronic respiratory failure with hypoxia (principal); J44.1 Chronic obstructive pulmonary disease with (acute) exacerbation; N18.4 Chronic kidney disease, stage 4 (severe); J96.22 Acute and chronic respiratory failure with hypercapnia; Z20.822 Contact with and (suspected) exposure to COVID-19; E11.22 Type 2 diabetes mellitus with diabetic chronic kidney disease; F17.210 Nicotine dependence, cigarettes, uncomplicated; E78.5 Hyperlipidemia, unspecified; E11.51 Type 2 diabetes mellitus with diabetic peripheral angiopathy without gangrene; F51.04 Psychophysiologic insomnia; E66.01 Morbid (severe) obesity due to excess calories; E11.65 Type 2 diabetes mellitus with hyperglycemia; E87.5 Hyperkalemia; T46.4X5A Adverse effect of angiotensin-converting-enzyme inhibitors, initial encounter; I12.9 Hypertensive chronic kidney disease with stage 1 through stage 4 chronic kidney disease, or unspecified chronic kidney disease; Z79.4 Long term (current) use of insulin; Z79.02 Long term (current) use of antithrombotics/antiplatelets; Z79.899 Other long term (current) drug therapy; Z88.1 Allergy status to other antibiotic agents; Z88.5 Allergy status to narcotic agent; Z88.8 Allergy status to other drugs, medicaments and biological substances; Z95.820 Peripheral vascular angioplasty status with implants and grafts; Z89.511 Acquired absence of right leg below knee; Z89.422 Acquired absence of other left toe(s); Z89.421 Acquired absence of other right toe(s); Z89.412 Acquired absence of left great toe; Z89.411 Acquired absence of right great toe
CPT/HCPCS: 36600; 71045; 80048; 80053; 82803; 83735; 84484; 85025; 85379; 93005; 93010; 94640; 94660; 94761; 97162; 97165; 99285-25; A9270; C9803; J1650; J1815; J2405; J2920; J2930; J7030; U0003

== ENCOUNTER 2022-03-04 13:13 | Inpatient (IN) | payer MEDICARE, MEDICAID ==
[~2022-03-04] VITALS: Ht 165.1 cm; Wt 140.0 kg
[~2022-03-04 13:13] MED LIST changes: +AEROECLIPSE II1 EACH MISC; +AMLODIPINE BESY10 MG PO; +BENZONATATE100 MG PO; +DOXAZOSIN MESYLA1 MG PO; +GABAPENTIN300 MG PO; +IPRAT-ALBUT 0.5-3 ML INH; +LEVOFLOXACIN250 MG PO; +NICOTINE LOZENGE4 MG BUCCAL; +PREDNISONE20 MG PO; +TRULICITY1.5 MG/0.5 SUB-Q
[2022-03-05] MEDS ORDERED: HUMULIN R500 UNIT/2 SUB-Q (15:50)
[2022-03-05] MEDS ORDERED: ADVAIR 500-501 EACH INH (15:51)
[2022-03-05] MEDS ORDERED: TRULICITY4.5 MG/0.5 SUB-Q (15:53)
[2022-03-07] MEDS ORDERED: ADULT LOW DOSE81 MG PO (13:26)
[2022-03-09] MEDS ORDERED: CLINDAMYCIN HC300 MG PO (14:52)
== END 2022-03-09 15:40 | disposition home or self-care (01) | DRG 564 ==
LOC: ED 13:13 → CCU 15:45 → MS 03-06 15:15
PROVIDERS: ADMIT Internal Medicine; ATTEND Internal Medicine
PROC: 0HBNXZZ Excision of Left Foot Skin, External Approach (ICD-10-PCS; principal; 2022-03-05)
DX: T87.44 Infection of amputation stump, left lower extremity (principal); A41.9 Sepsis, unspecified organism; R65.20 Severe sepsis without septic shock; L03.116 Cellulitis of left lower limb; N17.9 Acute kidney failure, unspecified; N18.4 Chronic kidney disease, stage 4 (severe); J96.11 Chronic respiratory failure with hypoxia; L97.429 Non-pressure chronic ulcer of left heel and midfoot with unspecified severity; Z20.822 Contact with and (suspected) exposure to COVID-19; E11.65 Type 2 diabetes mellitus with hyperglycemia; I12.9 Hypertensive chronic kidney disease with stage 1 through stage 4 chronic kidney disease, or unspecified chronic kidney disease; E11.22 Type 2 diabetes mellitus with diabetic chronic kidney disease; E11.621 Type 2 diabetes mellitus with foot ulcer; G89.4 Chronic pain syndrome; E78.5 Hyperlipidemia, unspecified; D50.9 Iron deficiency anemia, unspecified; Z89.611 Acquired absence of right leg above knee; Z89.432 Acquired absence of left foot; Z87.891 Personal history of nicotine dependence; Z98.890 Other specified postprocedural states; Z88.1 Allergy status to other antibiotic agents; Z88.8 Allergy status to other drugs, medicaments and biological substances; Z88.5 Allergy status to narcotic agent; Z79.899 Other long term (current) drug therapy; Z79.52 Long term (current) use of systemic steroids; Z79.4 Long term (current) use of insulin; Y83.8 Other surgical procedures as the cause of abnormal reaction of the patient, or of later complication, without mention of misadventure at the time of the procedure
CPT/HCPCS: 36415; 51702; 71045; 73630; 80048; 80053; 81001; 82553; 82800; 83036; 83605; 83735; 85025; 86140; 87040; 87088; 94640; 94660; 94760; 99285-25; A9270; C9803; J0692; J0878; J1650; J1815; J2405; J3475; J7030; J7121; U0003

== ENCOUNTER 2022-03-11 01:52 | Observation (INO) | payer MEDICARE, MEDICAID ==
[~2022-03-11] VITALS: Ht 165.1 cm; Wt 144.7 kg
[~2022-03-11 01:52] MED LIST changes: +ADULT LOW DOSE81 MG PO; +ADVAIR 500-501 EACH INH; +CLINDAMYCIN HC300 MG PO; +HUMULIN R500 UNIT/2 SUB-Q; +TRULICITY4.5 MG/0.5 SUB-Q
--- NOTE | 2022-03-11 04:39 | NUR ---
TELEPHONE REPORT RECEIVED FROM ED RN CLAUDIO. QUESTIONS ANSWERED, AWITING pt's ARRIVAL TO [facility] FLOOR.
--- NOTE | 2022-03-11 04:47 | NUR ---
PATIENT CALLED AND REPORTED NAUSEA. PRN NAUSEA MEDICATION GIVEN PER ORDER. PATIENT DENIES ANY FURTHER NEEDS. CALL LIGHT IN REACH.
--- NOTE | 2022-03-11 05:00 | NUR ---
PT IS HERE FROM THE ER, 4PA TRANSFER TO BED, VS TAKEN, RN IN FOR ADMISSION, NO FURTHER NEEDS AT THIS TIME
--- NOTE | 2022-03-11 06:19 | NUR ---
VERIFIED UNIT OF PRBC'S WITH SECOND CUT OUT AND MARKING MACHINE OPERATOR CATINA CHAND PER POLICY. BUILDING RENTAL SUPERINTENDENTCATINA CHAND TO START BLOOD INFUSION AND REMAIN WITH pt FOR FIRST 15 MINUTES.
--- NOTE | 2022-03-11 06:53 | NUR ---
pt PREVIOUSLY HERE AND ON 60G CARB DIET. ARRIVED TO [facility] FLOOR ON REGULAR DIET WITH ELEVATED BLOOD SUGAR IN ED. DISCUSSED WITH ACTUARIAL INTERNSHIP, RN INITIATED ORDER TO 60G CARB DIET. MESSAGE TO DR SALINAS SENT.
--- NOTE | 2022-03-11 08:49 | NUR ---
MED REC COMPLETE
--- NOTE | 2022-03-11 09:05 | NUR ---
BLOOD COMPLETED. VITALS TAKEN AND STABLE. NO S/SX OF REACTION. PT SITTING AT EDGE OF BED EATING BREAKFAST.CALL LIGHT IN REACH
--- NOTE | 2022-03-11 09:30 | NUR ---
REPORT RECEIVED FROM NIGHT RN AND PT CARE RESUMED. PT. IS ALERT AND ORIENTED TO ALL. SHE DENIES PAIN. GENERALIZED EDEMA PRESENT AND +3 EDEMA IN LLE THAT IS TIGHT. SHE IS ON 4L NC AND REFUSES HUMIDIFICATION. ON CPOX AND TELE. CRACKLES PRESENT THROUGHOUT RIGHT LUNG AND LLL DIM. DISCUSSED POC, MEDS AND SAFETY. PT. LEFT RESTING WITH BED ALARM ON.
--- NOTE | 2022-03-11 09:45 | NUR ---
PATIENT AWAKE IN BED. VITALS AND I&OS CHARTED. CALL LIGHT IN REACH. NO OTHER NEEDS AT THIS TIME
--- NOTE | 2022-03-11 11:01 | NUR ---
PT. USED CALL LIGHT APPROPRIATELY FOR ASSISTANCE. 1PA TO PIVOT TO BSC. TOLERATED WELL. STUDENT IN THE ROOM.
--- NOTE | 2022-03-11 14:03 | NUR ---
ASSESSMENT COMPLETED. LEFT FOOT "DONUT" DRESSING AROUND ULCER INTACT AND PLACED BY DR. DUFF. FOOT IS WEEPING AND EDEMA REMAINS UNCHANGED. PT. ENCOURAGED TO ELEVATE LEG BUT REFUSES. BASES OF LUNGS DIM AND PT. REMAINS ON 4L NC, CPOX AND TELE. LEFT RESTING WITH APPLICATION DEVELOPMENT TEAM LEAD AND STUDENT IN THE ROOM.
--- NOTE | 2022-03-11 14:29 | NUR ---
RN NARENDRA REQUESTED I CHECK ON PT. PT WAS ALERT, ORIENTED AND SITTING ON BED WITH TV ON. HAD GOOD VISIT, GAVE ENCOURAGEMENT. LEFT COPY OF G.POST AND WILL FOLLOW
--- NOTE | 2022-03-11 17:00 | NUR ---
Spoke with Sharifa. States she was sob and increased edema and returned to the hospital. States she is already feeling better. She denies any needs and has good support at home.
--- NOTE | 2022-03-11 21:20 | NUR ---
CBG 59, 237CC OF OJ MIXED WITH 3 PACKETS OF SUGAR GIVE, DENIES S/SX HYPOGLYCEMIA, PT INSTRUCTED ON S/SX HYPER/HYPOGLYCEMIA, STATED UNDERSTANDING. WILL RECHECK CBG AT [phone]. PT AWARE.DENIES SOB. PT ON 4LNC O2 CHRONIC, LUNGS DIM AT BASES W FINE CRACKLES, GETS NEBS. ABD LARGE MARIANO, LBM 03/11/22. SL ISMAEL TOMLIN. R AKA, L LEG WITH SURGICAL AMPUTED TOES, DRESSING BOTTOM OF FOOT, CALF RED EDEMATOUES 2+, ELEVATED, PT PIVOTS TO BSC, VOIDS QS, NO C/O PAIN. TOLERATING LIQUIDS WELL, USES CALL LIGHT. PLEASANT, ALERT AND ORIENTED
--- NOTE | 2022-03-11 21:40 | NUR ---
cbg 64, denies s/sx hypoglycemia, watching tv, talking in phone with family, up to bsc w/o assist, voided clear yellow urine. Dr Layne notified
--- NOTE | 2022-03-11 22:01 | NUR ---
cbg 105, alert and oriented, watching tv.
--- NOTE | 2022-03-11 22:55 | NUR ---
HOB ELEVATED, O2 4LNC IN PLACE, NO DISTRESS, EYES CLOSED, CALL LIGHT AND FLUIDS AT BEDSIDE, WILL CONTINUE TO MONITOR
--- NOTE | 2022-03-12 01:45 | NUR ---
IN TO GET VITALS WITH RN, NO FURTHER NEEDS AT THIS TIME
--- NOTE | 2022-03-12 01:47 | NUR ---
on 4L NC, cpox at bedside, sats 95%, tele#[address] SR, denies CP or SOB. coop with assessment, c/o abd pain, was medicated with 1 [place]. CBG 116
--- NOTE | 2022-03-12 01:48 | NUR ---
c/o L leg and back pain, medicated with 1 norco 4/10 pain
--- NOTE | 2022-03-12 01:48 | NUR ---
CBG 116, resting, awakes easily. coop with assessment, on 4lnc, c
--- NOTE | 2022-03-12 04:27 | NUR ---
Resting, eyes closed, O2 4LNC, no resp distress, hob elevated to her comfort. L leg elevated. tele#[address], SR, cpox at bedside
--- NOTE | 2022-03-12 05:17 | NUR ---
Pt on chronic 4LNC, lungs dim w crackles at bases, has slept most of this shift. CBG at beginig of shift was 59, juice and snacks given. checked at 15 minutes x2 with reading of 64 and 106. then at 0130 w reading of 116, denies c/o hypoglycemia, pt aware of s/sx of hypoglycemia, was medicated x1 with norco per L leg pain, effective. sl patent. R AKA w stump healthy, L leg very dry skin edematous, red skin mid calve down, edemat o ankle and foot, toes previously surgically amputated, pt pivots self to BSC, voiding QS, on 1600 fluids restriction. tolerating well.
--- NOTE | 2022-03-12 06:22 | NUR ---
standing weight 144.7 KG. tolerated well. admit weight was 119.1 kp bed. pt instructed to call RN when getting up to BSc next time, so we can zero the bed. and redo bed weight. Pt agrees. sitting edge of bed. L leg in bed, praised for keeping lefs elevated, no sob, O2 4LNC
--- NOTE | 2022-03-12 06:54 | NUR ---
DR SALINAS UPDATED ON PT DAILY WEIGHT DISCREPANCY FROM STANDING SCALE OF 144.7KG TO ADMIT BED SCALE OF 119.1 KG. STATED OK, THANK YOU, NO NEW ORDERS
--- NOTE | 2022-03-12 08:30 | NUR ---
REPORT RECEIVED FROM NIGHT RN AND PT. CARE RESUMED. PT. IS ALERT AND ORIENTED TO ALL. SHE REPORTS NOT SLEEPING WELL OVER NIGHT. NEURO ASSESSMENT SHOWS NO NEW DEFICITS. IV WNL AND FLUSHES. NO MEDS. SCHEDULED. SHE DENIES PAIN. DISCUSSED POC, PROCEDURES AND SAFETY. LEFT RESTING IN TH CHAIR WITH CALL LIGHT IN REACH.
--- NOTE | 2022-03-12 10:27 | NUR ---
PER AM MEETING NO PLANS FOR DISCHARGE TODAY. NO CHANGES IN DISCHARGE PLAN/NEEDS AT THIS TIME.
--- NOTE | 2022-03-12 11:59 | NUR ---
PT SITTING IN CHAIR IN FRONT OF WINDOW.SEEMS ALERT, ORIENTED AND FEELING SOMEWHAT BETTER. HAD GOOD VISIT, PT FEELS INFORMED, CARED FOR BY STAFF. HAD PRAYER WITH PT, WILL FOLLOW
--- NOTE | 2022-03-12 12:27 | NUR ---
PT. UP IN THE CHAIR. IV SITE PATENT AND FLUSHES. PRBC VERIFIED WITH COOPER APPRENTICE. VITALS TAKEN AND PT EDUCATED ON S/SX TO REPORT DURING BLOOD ADMIN. PRBC INFUSING AND WILL CONTINUE TO MONITOR IN THE ROOM.
--- NOTE | 2022-03-12 13:48 | NUR ---
ROUNDING ON PT. AND ADMIN INSULIN AFTER MEAL. PT. IS RESTING COMFORTABLY AND DENIES NEEDS AT THIS TIME.
[2022-03-12] MEDS ORDERED: NICOTINE1 EAC1 TD (16:18)
[2022-03-12] MEDS ORDERED: TORSEMIDE20 MG PO (16:19)
[2022-03-12] MEDS ORDERED: FERROUS SULFAT325 MG PO (16:21)
--- NOTE | 2022-03-12 17:03 | NUR ---
blood glucose was 57. admin. juice and will monitor in 15 minutes. pt. denies symptoms of hypoglycemia.
--- NOTE | 2022-03-14 17:07 | EKG ---
[facility] [address] [facility] [place] [address] Signed Sinus tachycardia Low voltage QRS Borderline ECG When compared with ECG of 09-JUN-2021 23:29, Nonspecific T wave abnormality now evident in Inferior leads Confirmed by SUSU SALINAS MD ([id number]) on 03/14/2022 5:07:34 PM Electronically Signed By: SUSU SALINAS MD 03/14/22 1707 PATIENT NAME: MANNY MORALES Electrocardiogram DATE OF : 70 PHYSICIAN: SUSU SALINAS MD REPORT #: [id number] REPORT IS CONFIDENTIAL AND NOT TO BE RELEASED WITHOUT AUTHORIZATION
== END 2022-03-12 18:45 | disposition home or self-care (01) ==
LOC: ED 01:52 → MS 01:53
PROVIDERS: ADMIT Internal Medicine; ATTEND Internal Medicine
DX: J81.0 Acute pulmonary edema (principal); I12.9 Hypertensive chronic kidney disease with stage 1 through stage 4 chronic kidney disease, or unspecified chronic kidney disease; N18.4 Chronic kidney disease, stage 4 (severe); E11.22 Type 2 diabetes mellitus with diabetic chronic kidney disease; G89.4 Chronic pain syndrome; J96.11 Chronic respiratory failure with hypoxia; Z79.82 Long term (current) use of aspirin; F17.210 Nicotine dependence, cigarettes, uncomplicated; N17.9 Acute kidney failure, unspecified; E66.2 Morbid (severe) obesity with alveolar hypoventilation; D63.1 Anemia in chronic kidney disease; Z95.828 Presence of other vascular implants and grafts; Z89.511 Acquired absence of right leg below knee; Z88.1 Allergy status to other antibiotic agents; Z88.5 Allergy status to narcotic agent; E78.00 Pure hypercholesterolemia, unspecified; Z79.4 Long term (current) use of insulin; E87.70 Fluid overload, unspecified; Z20.822 Contact with and (suspected) exposure to COVID-19
CPT/HCPCS: 36415; 71045; 80053; 82728; 83540; 83550; 83735; 83880; 84484; 85025; 85060; 86850; 86900; 86901; 86922; 93005; 93010; 93306; 94640; 94760; 94762; 99406; A9270; J1650; J1815; J1940; P9016; U0003

== ENCOUNTER 2023-11-28 12:27 | Inpatient (IN) | payer MEDICARE, OTHER ==
[~2023-11-28] VITALS: Ht 165.1 cm; Wt 145.0 kg
[~2023-11-28 12:27] MED LIST changes: +FERROUS SULFAT325 MG PO; +NICOTINE1 EAC1 TD; +TORSEMIDE20 MG PO
[2023-11-28] MEDS ORDERED: LOSARTAN POTASS50 MG PO (12:43)
[2023-11-28] MEDS ORDERED: AMITRIPTYLINE H25 MG PO (12:44)
[2023-11-28] MEDS ORDERED: INDAPAMIDE1.25 MG PO (12:45)
[2023-11-28] MEDS ORDERED: ROSUVASTATIN CA10 MG PO (12:47)
[2023-11-28 12:53] LABS: BASOPHILS 0.4 % (0-2); EOSINOPHILS 1.6 % (0-6); HEMATOCRIT 34.4 % (35.0-50.0); HEMOGLOBIN 11.3 g/dL (12.0-18.0); LYMPHOCYTES 12.4 % (24-44); MCH 29.6 (27-36); MCHC 32.8 g/dl (30-36); MCV 90.2 fl (81-99); MONOCYTES 7.7 % (0-12); NEUTROPHILS 77.9 % (39-80); PLATELET COUNT 130 K/uL (140-440); RBC 3.82 M/ul (4.3-5.7); RDW 14.8 (10.5-15.0)
[2023-11-28 13:15] LABS: ALBUMIN 3.4 g/dL (3.4-5.0); ALBUMIN/GLOBULIN RATIO 0.81 (1.1-2.4); ANION GAP 15.8 (7-21); BILIRUBIN, TOTAL 0.3 ng/dL (0.2-1.0); BUN/CREATININE RATIO 11.58 (6.0-28.6); CALCIUM 8.7 mg/dL (8.5-10.1); CREATININE, SERUM 2.59 mg/dL (0.55-1.02); POTASSIUM 3.8 mmol/L (3.5-5.1); PROTEIN, TOTAL 7.6 g/dL (6.4-8.2)
[2023-11-28 17:16] LABS: BASE EXCESS, BLOOD GAS -6.7 mmol/L (-2-2); PCO2, BLOOD GAS 42.9 mmHg (35-45); PH, BLOOD GAS 7.28 (7.35-7.45); PO2, BLOOD GAS 71 mmHg (80-100); TOTAL CO2, BLOOD GAS 21.3
[2023-11-28 18:41] VITALS: BP 109/81
--- NOTE | 2023-11-28 19:34 | NUR ---
REPORT RECEIVED FROM DAY SHIFT RN. PT LYING IN BED ALERT AND ORIENTED. DENIES NEEDS AT THIS TIME. RT IN ROOM. WHITE BOARD UPDATED. CALL LIGHT IN REACH.
--- NOTE | 2023-11-28 19:35 | NUR ---
PC TO HOSPITALIST DR. DEGROOT TO CLARIFY ZITHROMAX AND SLIDING SCALE ORDERS FOR THIS PATIENT. ADVISED THAT THE ZITHROMAX CAN BE ENTERED 500MG NOW AND 250MG DAILY X4 DAYS AFTER TODAY. HE ALSO ADVISED THE PT CAN BE PLACED ON "MODERATE SLIDING SCALE" FOR INSULIN. ADVISED PRIMARY RN, KAVITA, OF THIS.
--- NOTE | 2023-11-28 20:30 | NUR ---
PATIENT IS BACK IN BED FROM BEDSIDE COMMODE. PATIENT IS SITTING UP POSITIONE IN BED. SANDWICH BOX PROVIDED. DENIES FURTHER NEEDS AT THIS TIME.
--- NOTE | 2023-11-28 20:54 | NUR ---
PT SITTING UP IN BED EATING A SANDWICH BOX. REQUESTS BLOOD SUGAR CHECK, RESULTS 420. NOTIFIED. NEW TELEPHONE ORDERS VERIFIED WITH READBACK METHOD.
--- NOTE | 2023-11-28 22:15 | NUR ---
BLOOD SUGAR REMAINS >400. MD NOTIFIED. MAINTENANCE GROUNDMAN RECEIVED NEW TELEPHONE ORDERS.
--- NOTE | 2023-11-28 22:20 | NUR ---
EVENING ASSESSMENT COMPLETE. SCHEDULED MEDS ADMIN PER EMAR. PT DENIES PAIN OR NAUSEA. REPORTS SLIGHT SOB AT REST. REPORTS IMPROVED SINCE ADMISSION. 4L/NC IN PLACE. SpO2 MID 90'S. TELE #[address] HR 90'S. DRESSING TO LEFT FOOT CDI. PT REPORTS WEEKLY DRESSING CHANGES WITH DR. DUFF ON TUESDAYS. PT DENIES QUESTIONS OR CONCERNS. CALL LIGHT IN REACH.
[2023-11-28 22:21] VITALS: BP 150/65
--- NOTE | 2023-11-28 23:04 | NUR ---
PT WOKE BRIEFLY FOR THE INSULIN, BACK TO SLEEP. O2 READING 93 CPOX, O2 IN PLACE PER NC.
[2023-11-29] VITALS (11 sets, daily range): BP systolic 141–190; BP diastolic 49–110
--- NOTE | 2023-11-29 00:13 | NUR ---
PT RESTING IN BED WITH EYES CLOSED. AWAKENS EASILY. BLOOD SUGAR 363. SpO2 LOW 90'S. HR 90'S.
--- NOTE | 2023-11-29 00:30 | NUR ---
PT REPORTS HOME CPAP USE. UNABLE TO GET PERSONAL MACHINE TONIGHT. REQUESTING HOSPITAL CPAP. RT NOTIFIED.
--- NOTE | 2023-11-29 01:44 | NUR ---
PT RESTING WITH EYES CLOSED. AWAKENS EASILY. CPAP IN PLACE. VS OBTAINED, WNL. PT DENIES NEEDS. REPORTS SHE IS RESTING WELL. CALL LIGHT IN REACH.
--- NOTE | 2023-11-29 03:43 | NUR ---
PT RESTING IN BED WITH EYES CLOSED LYING ON RIGHT SIDE. CPAP IN PLACE. SpO2 96%. HR 90'S. RR 16 AND NON LABORED.
[2023-11-29 05:39] LABS: BASOPHILS 0.2 % (0-2); EOSINOPHILS 0.1 % (0-6); HEMATOCRIT 33.3 % (35.0-50.0); HEMOGLOBIN 10.9 g/dL (12.0-18.0); LYMPHOCYTES 4.8 % (24-44); MCH 29.8 (27-36); MCHC 32.7 g/dl (30-36); MCV 91.1 fl (81-99); MONOCYTES 1.2 % (0-12); NEUTROPHILS 93.7 % (39-80); PLATELET COUNT 126 K/uL (140-440); RBC 3.65 M/ul (4.3-5.7); RDW 15.2 (10.5-15.0)
[2023-11-29 05:52] LABS: ANION GAP 18.7 (7-21); BUN/CREATININE RATIO 13.55 (6.0-28.6); CALCIUM 8.5 mg/dL (8.5-10.1); CREATININE, SERUM 2.95 mg/dL (0.55-1.02); POTASSIUM 4.7 mmol/L (3.5-5.1)
--- NOTE | 2023-11-29 06:06 | NUR ---
TONAL REGULATOR EMPTIED COMMODE, BACK TO BED CALL LIGHT WITHIN REACH.
--- NOTE | 2023-11-29 06:10 | NUR ---
VS AND I&O OBTAINED. PT DENIES SOB AT REST. OFF CPAP AT THIS TIME. 4L/NC IN PLACE. SpO2 MID 90'S. SCHEDULED MEDS ADMIN PER EMAR. NO FURTHER NEEDS.
--- NOTE | 2023-11-29 06:32 | NUR ---
DR DEGROOT NOTIFIED OF PT BLOOD DRAW OF 498. ORDERS RECEIVED.
--- NOTE | 2023-11-29 07:01 | NUR ---
BLOOD SUGAR 498 WITH MORNING LAB DRAW. NEW ORDERS RECEIVED. SCHEDULED MEDS ADMIN PER EMAR. PT AWAKE IN BED WATCHING TV. DENIES NEEDS.
--- NOTE | 2023-11-29 07:30 | NUR ---
OPTICAL INSTRUMENT ASSEMBLER entered pt room to obtain blood glucose test. BG is 479. Pt denies any needs at this time. Primary RN notified of blood sugar results. Call light within reach.
--- NOTE | 2023-11-29 08:01 | NUR ---
Blood sugar of 479. Notified Dr. Aranda at this time. New order obtained to start Novolog 20units scheduled three times per day. Order placed at this time.
--- NOTE | 2023-11-29 08:06 | NUR ---
Sharifa is awake and alert this morning when I enter the room. She is very pleasant to visit with and she is AAOx3, answering all questions appropriately, making eye contact. It is noted that when she talks beyond 2 -3 word answers she does get SOB. RT does come in the room also at this time to start her breathing treatment. Sharifa denies any home needs, including food insecurity, and states that she has the ability to meet her care needs with the exception of driving. She states that her brother will drive her anywhere that she needs to go, and that he will take her home when she is discharged. She also denies inability to pay for or obtain prescriptions. She denies any Case Management assistance for needs at this time.
--- NOTE | 2023-11-29 09:22 | NUR ---
UR NOTE [facility] COPD OBS CARE WILL MEET COPD INPT CRITERIA
--- NOTE | 2023-11-29 10:37 | NUR ---
PT. CALLED NURSES STATION REQUESTING ASSISTANCE OFF BSC. PT. ASSISTED WITH BILL CARE, PT. TOLERATED MOVEMENT WELL, BACK IN BED, PT. REQUESTED CPAP FOR USE THIS WAS PROVIDED, 02 SATS ABOVE AT 92%, CALL LIGHT LEFT WITHIN REACH. NO OTHER NEEDS AT THIS TIME.
--- NOTE | 2023-11-29 10:56 | NUR ---
Patient sitting up in bed watching tv, alert and oriented x4. Patient is on 4L oxygen per nc, respiraitons non labored. Patient denies shortness of breath at rest. Patient encouraged to call if she has needs. Call light within reach.
[2023-11-29] MEDS ORDERED: AMITRIPTYLINE100 MG PO (11:04)
[2023-11-29] MEDS ORDERED: INDAPAMIDE2.5 MG PO (11:05)
[2023-11-29] MEDS ORDERED: GABAPENTIN300 MG PO (11:06)
[2023-11-29] MEDS ORDERED: MOUNJARO10 MG/0.5 SUB-Q (11:07)
--- NOTE | 2023-11-29 11:08 | NUR ---
MED REC COMPLETE
--- NOTE | 2023-11-29 11:08 | NUR ---
MED REC COMPLETE
--- NOTE | 2023-11-29 12:03 | NUR ---
Called Dr. Aranda regarding most recent blood sugar 522. TORB to move patient to ICU. Lan Analyst and charge nurse notified regarding new order to move patient.
--- NOTE | 2023-11-29 12:32 | NUR ---
Scheduled insulin admin. Waiting to hear back from Grounds Person for ICU bed availability.
--- NOTE | 2023-11-29 14:35 | NUR ---
52 year OLD FEMALE PATIENT ADMITTED TO CCU ROOM 126 WITH DX OF EXERBATION COPD, HYPERGLYGEMIA, ARRIVED VIA BE. UPON ADMIT, PATIENT IS AWAKE ALERT AND ORIENTED. HAS OCC TIGHT COUGH. HX OF DM AND AMPUTATION ABOVE THE KNEE ON THE RIGHT SIDE AND AMPUTATION OF TOES ON LEFT. O2 AT [address] USE HOME O2 AND CPAP. GAS SCRUBBER OPERATOR NOW AT BEDSIDE.
--- NOTE | 2023-11-29 15:00 | NUR ---
ACCUCHECK-549. INSULIN GTT HUNG AT 8.8 UNITS HR. SOLUMEDROL 40 MG IV GIVEN PER ORDERS. PATIENT DENIES PAIN.
--- NOTE | 2023-11-29 15:30 | NUR ---
CALL LIGHT ANSWERED, PATIENT PLACED ON BIPAP PER REQUEST. RT IN WELL FOR NEBS. PATIENT SITTING HIGH UP IN BED.
--- NOTE | 2023-11-29 16:00 | NUR ---
HAS BEEN ON CPAP SINCE ECHO COMPLETE. LUNGS ARE VERY TIGHT THROUGHOUT. DENIES PAIN. IS VERY TIRED. ASSESSMENT DONE.
--- NOTE | 2023-11-29 18:04 | NUR ---
PATIENT SITTING UP IN BED EATING DINNER, NC IN PLACE. C2 SATS 94%. CALL LIGHT IN EASY REACH
--- NOTE | 2023-11-29 18:09 | NUR ---
DR. DEGROOT UPDATED ON PATIENT CONDITION. ORDERS RECEINVED. PATIENT IS SITTING IN BED TO TAKE DINNER. PATIENT HAS BEEN TAKING FLUIDS WELL.
--- NOTE | 2023-11-29 18:30 | NUR ---
TOOK DINNER WELL REMAINS ON O2 AT 4 L NC. INSULIN GTT AT 7.2 UNITS/HR.
--- NOTE | 2023-11-29 21:07 | NUR ---
SBAR REPORT RECEIVED FROM CATINA DIANA. ALL EVENT AND PLAN OF CARE WERE DISCUSSED AND ALL QUESTIONS/ CONCERNS ADDRESSED. PATIENT CARMEN IS NOTED TO BE VERY PLEASANT AND COOPERATIVE. SHE WAS TAKEN TO THE COMMODE AND REQUIRED ASSISTANCE BY 1 PERSON. VOIDED 550CC WITH SOME STOOL. UPON RETURN TO THE BED SHE REPORTED SOB. CPAP WAS PLACED AND O2 SATS ARE 99%. PLAN OF CARE, MEDICATIONS, AND SCHEDULE WERE DISCUSSED WITH MANNY AND SHE IS AGREEABLE AND HAPPY ALL PLANS.
--- NOTE | 2023-11-29 22:07 | NUR ---
CALLED AND SPOKE TO TELEPHARMACY REGARDING HS DOSE OF 125MG AMITRIPTYLINE. MEDICATION IN DIVIDED AMONGST 2 TABLETS. THE 25MG TABLET IS SCANNING "NOT ON PATIENT'S EMAR" BECAUSE 25MG IS NOT HCL. PHARMACIST WILL TRY AND FIX IN THE COMPUTER AND I WILL RESCAN
[2023-11-30] VITALS (17 sets, daily range): BP systolic 100–189; BP diastolic 59–109
--- NOTE | 2023-11-30 00:20 | NUR ---
MD DEGROOT WAS CONTACTED FOR PERSISITENT HTN. CURRENT BP IS 189/77 (104) AFTER PM BP MEDS ADMINISTERD. THIS RN RECEIVED AN ORDER FOR PRN 10MG HYDRALAZINE Q6 FOR A BP GREATER THAN 160. OTHERWISE, PATIENT CARMEN ENDORSES COMFORT AND DENIES ANY NEEDS. SHE IS WATCHING A SHOW ON HER LAPTOP, WEARING HER CPAP AND ALL PM CARES HAVE BEEN DONE.
--- NOTE | 2023-11-30 01:04 | NUR ---
PATIENT CARMEN WAS GIVEN IV PRN HYDRALAZINE FOR HTN. SHE BECAME HOT AND PANICKED WITHIN TWO MINUTES OF ADMINISTRATION. MANNY TOOK OFF HER CPAP AND STATED "OH MY GOSH IM GOING TO PANIC". SHE STATED THAT SHE HAS NEVER HAD HYDRALAZINE BEFORE AND SHE DOES NOT WANT TO TAKE IT AGAIN. MD DEGROOT WILL BE NOTIFIED.
--- NOTE | 2023-11-30 02:46 | NUR ---
PATIENT CARMEN WAS ABLE TO RELAX AFTER OVER AN HOUR OF CALMING INTERVENTIONS. THESE INCLUDED PROVIDING A FAN, COLD WASHCLOTHS TO HER BACK AND WRIST, CALMING CONVERSATIONS AMONGST OTHER DISTRACTIONS. HYDRALAZINE WILL BE ADDED TO HER ALLERGY LIST FOR PANIC AND ANXIETY
[2023-11-30 05:31] LABS: BASOPHILS 0.4 % (0-2); EOSINOPHILS 0.6 % (0-6); HEMATOCRIT 33.5 % (35.0-50.0); HEMOGLOBIN 10.8 g/dL (12.0-18.0); MCH 28.8 (27-36); MCHC 32.2 g/dl (30-36); MCV 89.6 fl (81-99); MONOCYTES 2.6 % (0-12); NEUTROPHILS 93.4 % (39-80); PLATELET COUNT 149 K/uL (140-440); RBC 3.74 M/ul (4.3-5.7)
--- NOTE | 2023-11-30 06:35 | NUR ---
NOTOFIED MD DEGROOT OF PERISTANT HTN AND ADVERSE PANIC ASSOCIATED WITH HYDRALAZINE. HYDRALAZINE ADDED TO ALLERGIES/ ADVERSE REACTIONS LIST. LABETALOL 10MG ORDERED Q6 PRN FOR SBP ABOVE 160
--- NOTE | 2023-11-30 06:42 | NUR ---
PATIENT MANNY CONTINUES TO BE PLEASANT, INQUISITIVE, AND COOPERATIVE. SHE IS VERY INVOLVED IN PLAN OF CARE AND ASKS APPROPRIATE QUESTIONS. NEURO- MOVES ALL EXTREMITIES, DENIES ANY ACUTE PAIN, PANIC ADVERSE REACTION TO HYDRALAZINE. 1P ASSIST TO COMMODE. 5/5 STRENTH BUE AND 4/5 LLE. PERRRL, ORIENTED X 4 CARDIAC- SR, ST, AFEBRILE, PERISITANT HTN, PRN ANTIHYPERTENSIVES ORDERED, GOAL IS SBP LESS THAN 160 RESP- DIMINISHED LUNG SOUNDS APPRECIATED THOUGHOUT, STRONG COUGH, CPAP IN USE AT NIGHT 40% FIO2, 4L DURING THE DAY, SOB AND INCREASED WOB WITH ACTIVITY GI/- VOIDS IN COMMODE, SMALL BM, DIABETIC DIET, ACHS, HYPERGLYCEMIA, PATIENTS OWN MED IN FRIDGE, NORMOACTIVE BT, OBESE ABDOMEN INT- SMALL SCRATCH/SCAB ON BUTTOCKS, DRY SKIN LH PERIPHERAL IV
--- NOTE | 2023-11-30 07:18 | NUR ---
PATIENT CARMEN CONTINUES TO BE PLEASANT AND COOPERATIVE. HE IS HOPEFUL THAT HE MAY BE ABLE TO DISCHARGE SOON AND EXPRESSED DESIRE TO GO TO [facility]. HE IS AGREEABLE TO PLAN ON CARE. NEURO- ALERT AND ORIENTED X 4, MOVES ALL EXTREMITIES, INTERMITTENT HEADACHE, PERRL CARDIAC- SR, ST, NO EDEMA, TMAX 99.9, NORMOTENSIVE RESP- RA, SATS MAINTAINED ABOVE 95% ON RA, CLEAR BREATH SOUNDS APPRECIATED THROUGHOUT GI/- ADEQUATE URINE, CLEAR, YELLOW URINE, NORACTIVE BOWEL TONES D5LR AT 100CC P/HR, PROTONIX GTT AT 27CCP/HR, 2G MAG REPLACEMENT
--- NOTE | 2023-11-30 07:30 | NUR ---
REPORT RECEIVED. SLEEPING ON CPAP WITH HOB ELEVATED.
--- NOTE | 2023-11-30 08:00 | NUR ---
WOKE FOR ACCUCHECK. ACCUCHECK-416. WISHES TO HOLD ON BREAKFAST AT THIS TIME. DENIES PROBLEMS. ASSESSMENT DONE, LUNGS REMAIN TIGHT. NON PRODUCTIVE COUGH.
[2023-11-30 08:03] LABS: ANION GAP 17.5 (7-21); BUN/CREATININE RATIO 18.33 (6.0-28.6); CALCIUM 8.8 mg/dL (8.5-10.1); CREATININE, SERUM 2.89 mg/dL (0.55-1.02); POTASSIUM 4.5 mmol/L (3.5-5.1)
--- NOTE | 2023-11-30 08:10 | NUR ---
PATIENT RESTING IN BED, CPAP IN PLACE. WOKE TO VOICE, VITALS CHARTED. RN NOTIFIED OF 416 GLUCOSE. BREAKFAST PROVIDED AND LEFT ON SIDE TABLE, PATIENT WOULD LIKE TO SLEEP AWHILE LONGER. CALL LIGHT AND PERSONAL ITEMS IN EASY REACH.
--- NOTE | 2023-11-30 09:30 | NUR ---
PATIENT SELF TRANSFERRED TO BSC FROM BED WITH GEOSPATIAL DEVELOPER STANDING BY, PATIENT TOLERATED ACTIVITY WELL. LINEN CHANGED AND ROOM TIDIED. PATIENT WILL USE CALL LIGHT WHEN READY TO MOVE BACK TO BED.
--- NOTE | 2023-11-30 09:55 | NUR ---
Attempted to see pt, she on the commode. Will see tomorrow.
--- NOTE | 2023-11-30 10:15 | NUR ---
PATIENT INTO RECLINER WITH STAND AND PIVOT. CPAP IN PLACE. CALL LIGHT AND PERSONAL ITEMS IN EASY REACH.
--- NOTE | 2023-11-30 10:45 | NUR ---
ROUNDS. PT APPEARED TO BE SLEEPING. DID NOT DISTURB. PROVIDED SILENT PRAYER; LEFT GUIDEPOST WITH PRAYER CARD AND CONTACT CARD.
--- NOTE | 2023-11-30 11:20 | NUR ---
CONTINUES TO SIT IN CHAIR ON CPAP.
--- NOTE | 2023-11-30 13:00 | NUR ---
DR. DEGROOT UPDATED ON PATIENT DRESSING TO LEFT FOOT, HE ASK ME TO CALL DR. DUFF'S OFFICE TO FIND OUT WHAT NEEDS TO BE DONE REGARDING THIS. PATIENT IS VERY SLEEPY TODAY. HAS REFUSED LUNCH, REMAINS ON CPAP AT 40% FIO2 WITH PRESSURE OF 16.
--- NOTE | 2023-11-30 13:10 | NUR ---
MESSAGE LEFT AT DR. DUFF'S OFFICE.
--- NOTE | 2023-11-30 14:00 | NUR ---
CONTINUES TO SIT IN CHAIR WITH CPAP ON. HAS BEEN USING CPAP MOST OF THE DAY.
--- NOTE | 2023-11-30 16:00 | NUR ---
ASSESSMENT DONE. LUNGS WITH BETTER AIR EXCHANGE. PATIENT STATES SHE FEELS LIKE SHE IS BREATHING BETTER.
--- NOTE | 2023-11-30 17:00 | NUR ---
DRESSING TO LEFT FOOT CHANGED USING WOUND SPRAY,IODOSORB, FOAM TAPE, GAUZE, COBAN. THIS PER DR. DUFF. PATIENT TOLERATED WELL.
--- NOTE | 2023-11-30 18:40 | NUR ---
EATING NOW. ON 4 L NC.
--- NOTE | 2023-11-30 19:36 | NUR ---
REPORT TO NEXT SHIFT.
--- NOTE | 2023-11-30 19:50 | NUR ---
RECEIVED REPORT FROM DAY SHIFT RN. PATIENT IS RESTING IN RECLINER WATCHING TV. PATIENT DENIES ANY NEEDS AT THIS TIME. JASON LIGHT IN REACH.
--- NOTE | 2023-11-30 21:00 | NUR ---
PATIENT IS RESTING IN RECLINER. PATIENTS VITALS RECORDED. PATIENT DENIES THE NEED TO VOID. PATIENT ASSESMENT COMPLETED. PATIENTS PM MEDS GIVEN PER ORDER. PATIENTS BS TAKEN AND RECORDED. PATIENT ADMIN OWN INSULIN IN LLQ PER ORDER. PATIENT DENIES ANY PAIN OR NAUSEA. PATIENTS IV FLUSHED AND SL PER ORDER. PATIENT DENIES ANY SOB. PATIENT PLACED ON CPAP PER REQUEST. PATIENT DENIES ANY FURTHER NEEDS. CALL LIGHT IN REACH. PATIENT REMAINS IN RECLINER WATCHING TV ON HER LABTOP.
--- NOTE | 2023-11-30 22:18 | NUR ---
PATIENT IS RESTING IN RECLINER WEARING CPAP AND WATCHING TV. PATIENT DENIES ANY NEEDS. CALL LIGHT IN REACH.
[2023-12-01] VITALS (14 sets, daily range): BP systolic 138–165; BP diastolic 55–138
--- NOTE | 2023-12-01 00:07 | NUR ---
PATIENT IS RESTING IN RECLINER WITH EYES CLOSED, RR 16. PATIENT IS WEARING CPAP. PATIENT APPEARS TO BE RESTING COMFORTABLY. NO NEEDS NOTED. CALL LIGHT IN REACH.
--- NOTE | 2023-12-01 01:11 | NUR ---
PATIENT ASSISTED TO THE BSC A SBA PIVOT XFER. PATIENT ABLE TO VOID. BILL CARE COMPLETED BY RN. PATIENT IS NO IN BED RESTING. PATIENT ASSESMENT COMPLETED. VITALS RECORDED. PATIENT DENIES ANY SOB AND DENIES NEED FOR NEB. PATIENT DENIES ANY FURTHER NEEDS. CALL LIGHT AND BELONGINGS ARE WITHIN REACH.
--- NOTE | 2023-12-01 02:35 | NUR ---
PATIENT IS RESTING IN BED ON RIGHT SIDE WITH EYES CLSOED, RR 19. PATIENT IS WEARING CPAP. CALL LIGHT AND BELONGINGS ARE WITHIN REACH.
--- NOTE | 2023-12-01 04:38 | NUR ---
PATIENT IS RESTING IN BED ON LEFT SIDE. PATIENT CONTINUES TO WEAR CPAP. PATIENTS BREATHING IS EVEN AND UNLABORED. PATIENT APPEARS TO BED COMFORTBLE. CALL LIGHT AND BELONGINGS ARE WITHIN REACH.
--- NOTE | 2023-12-01 06:07 | NUR ---
PATIENT IS RESTING IN BED ON RIGHT SIDE WAERING CPAP. LAB IN ROOM. PATIENT DENIES ANY PAIN OR SOB. PATIENT DENIES ANY NEEDS. CALL LIGHT IN REACH.
[2023-12-01 06:20] LABS: ANION GAP 17.4 (7-21); BUN/CREATININE RATIO 22.86 (6.0-28.6); CALCIUM 8.8 mg/dL (8.5-10.1); CREATININE, SERUM 2.93 mg/dL (0.55-1.02); POTASSIUM 4.4 mmol/L (3.5-5.1)
--- NOTE | 2023-12-01 07:45 | NUR ---
REPORT RECEIVED FROM NIGHT RN. PT RESTING IN BED WITH EYES CLOSED, CPAP IN PLACE, RESP RATE 17. CALL LIGHT IN REACH.
--- NOTE | 2023-12-01 08:30 | NUR ---
PATIENT RESTING IN BED, CPAP IN PLACE. PATIENT REFUSED BREAKFAST AT THIS TIME. RN AWARE
--- NOTE | 2023-12-01 09:51 | NUR ---
PT ASSISTED FROM BED TO COMMODE AND RECLINER. SWITCHED FROM CPAP TO 4LNC, O2 SAT 96%. ASSESSMENT COMPLETE. EXP WHEEZE HEARD IN UPPER BILAT LUNGS, DIM THROUGHOUT. DRESSING TO LLE CDI. PT SET UP TO EAT BREAKFAST, DENIES NEEDS AT THIS TIME. SCHEDULED MEDICATIONS GIVEN. DISCUSSED PLAN OF CARE, PT VERBALIZED UNDERSTANDING. CALL LIGHT IN REACH.
--- NOTE | 2023-12-01 10:49 | NUR ---
ROUNDS. PT RELUNCTANT TO ENGAGE; DENIED NEEDS; CONSENTED TO PRAYER. PROVIDED HOSPITALITY; PROVIDED PRAYER.
--- NOTE | 2023-12-01 12:35 | NUR ---
Patient to the medical floor. Patient awake, aler and oriented x4. Patient is on 4L oxygen per nc, respirations non labored. Cont sp02 intact, 97% at this time. Patient denies sob at rest. Oriented pt to room and call light. No current needs, personal supplies and call light within reach.
--- NOTE | 2023-12-01 13:00 | NUR ---
UR NOTE [facility] CHRONIC OBSTRUCTIVE PULMONARY DISEASE (ISC) INPATIENT 11/30/23 MET CLINICAL INDICATIONS FOR ADMISSION TO INPATIENT CARE GL DAY 1
--- NOTE | 2023-12-01 14:03 | NUR ---
Attempted to see pt. She is sleeping with Bipap in place. Not awakened.
--- NOTE | 2023-12-01 19:20 | NUR ---
Patient up in recliner, no complaints or needs, no resp distress, Report given by day shift RN, Patient call light withiin reach.
--- NOTE | 2023-12-01 21:00 | NUR ---
Patient still wanting to stay up in recliner, VSS, Denies increased SOB or CP, Oxygen on @ 4L/NC. Occasional congested cough noted, nonproductive, Lungs with faint scatteered wheeze and diminished. Left foot dressing intact, clean and dry. Denies any discomfort. Blood sugar 189 and patient gave herself her dose of insulin via patients own insulin pen. Patient had no difficulties.
--- NOTE | 2023-12-01 22:00 | NUR ---
Rounding on patient, remains up in recliner with no complaints, no noted resp distress, RR enev and unlabored. call light within reach. Encouraged patient to call if anything needed.
--- NOTE | 2023-12-02 01:16 | NUR ---
Patient called up to BSC with SBA, tolerated well, Is now going to bed, RT in to place patient on her CPAP, resting comfortable, no noted distress, lights out and call light within reach.
[2023-12-02 01:56] VITALS: BP 158/65
--- NOTE | 2023-12-02 03:10 | NUR ---
Patient resting on side, appears a sleep, BIPAP on, no noted resp distress, RR=18, call light within reach.
--- NOTE | 2023-12-02 04:58 | NUR ---
Patient has had an uneventful night. Was up in recliner until 2am and then settled into bed with BiPAP on and has slept comfortably since, Has had no resp distress throughout shift, With RR even and unlabored , VSS, Has had no pain. Assisted up to BSC as needed with SBA. At this time patient continues to rest comfortable.
[2023-12-02 05:50] LABS: ANION GAP 15.7 (7-21); BUN/CREATININE RATIO 27.37 (6.0-28.6); CALCIUM 8.7 mg/dL (8.5-10.1); CREATININE, SERUM 2.74 mg/dL (0.55-1.02); POTASSIUM 3.7 mmol/L (3.5-5.1)
[2023-12-02 05:58] VITALS: BP 151/51
--- NOTE | 2023-12-02 05:58 | NUR ---
Patient continues sleeping, RR even and unlabored, VSS, call light within reach.
[2023-12-02] MEDS ORDERED: PREDNISONE20 MG PO (10:09)
[2023-12-02] MEDS ORDERED: FUROSEMIDE40 MG PO (10:16)
--- NOTE | 2023-12-02 10:33 | NUR ---
ROUNDS. PT EXHIBITED POSITIVE OUTLOOK. FACILITATED STORY-TELLING; LISTENED EMPATHETICALLY; PROVIDED HOSPITALITY; PROVIDED SILENT PRAYER.
--- NOTE | 2023-12-02 10:45 | NUR ---
UR NOTE [facility] CHRONIC OBSTRUCTIVE PULMONARY DISEASE: OBSERVATION CARE (ISC) 12/01/23 VARIANCE GL DAY 2 12/02/23 MET GL DAY 2 MET GL DAY 3
--- NOTE | 2023-12-02 11:29 | NUR ---
PER DISCUSSION WITH DR. DEGROOT FOLLOWING THE AM MEETING. PATIENT TO BE DISCHARGED HOME TODAY. NO NEEDS AT THIS TIME. PATIENT HAS OXYGEN AND DME EQUIPMENT AT HOME.
[2023-12-02 12:32] VITALS: BP 163/81
[2023-12-02 14:09] VITALS: BP 151/57
--- NOTE | 2023-12-08 12:16 | EKG ---
[facility] [address] [place] [address] Signed Normal sinus rhythm ST \T\ T wave abnormality, consider inferior ischemia Abnormal ECG When compared with ECG of 11-MAR-2022 01:53, No significant change was found Confirmed by Lillie Degroot MD ([id number]) on 12/01/2023 3:49:35 PM Electronically Signed By: LILLIE DEGROOT 12/08/23 1216 PATIENT NAME: MANNY MORALES Electrocardiogram DATE OF : 70 PHYSICIAN: LILLIE DEGROOT REPORT #: [id number] REPORT IS CONFIDENTIAL AND NOT TO BE RELEASED WITHOUT AUTHORIZATION
== END 2023-12-02 14:45 | disposition home or self-care (01) | DRG 191 ==
LOC: ED 12:27 → MS 12:29 → CCU 11-29 14:52 → MS 12-01 11:30
PROVIDERS: Emergency Medicine; ADMIT Internal Medicine; ATTEND Internal Medicine
PROC: 4A033R1 Measurement of Arterial Saturation, Peripheral, Percutaneous Approach (ICD-10-PCS; principal; 2023-11-30)
DX: J44.1 Chronic obstructive pulmonary disease with (acute) exacerbation (principal); I13.0 Hypertensive heart and chronic kidney disease with heart failure and stage 1 through stage 4 chronic kidney disease, or unspecified chronic kidney disease; J96.11 Chronic respiratory failure with hypoxia; Z68.42 Body mass index [BMI] 45.0-49.9, adult; E66.01 Morbid (severe) obesity due to excess calories; E11.21 Type 2 diabetes mellitus with diabetic nephropathy; E11.65 Type 2 diabetes mellitus with hyperglycemia; E11.22 Type 2 diabetes mellitus with diabetic chronic kidney disease; I50.9 Heart failure, unspecified; N18.9 Chronic kidney disease, unspecified; E78.00 Pure hypercholesterolemia, unspecified; Z87.891 Personal history of nicotine dependence; Z98.890 Other specified postprocedural states; Z95.828 Presence of other vascular implants and grafts; Z88.0 Allergy status to penicillin; Z79.4 Long term (current) use of insulin; Z88.1 Allergy status to other antibiotic agents; Z88.8 Allergy status to other drugs, medicaments and biological substances; Z79.51 Long term (current) use of inhaled steroids; Z79.899 Other long term (current) drug therapy; Z79.82 Long term (current) use of aspirin; Z89.511 Acquired absence of right leg below knee
CPT/HCPCS: 36415; 36600; 71045; 80048; 80053; 82803; 83036; 83735; 83880; 84484; 85025; 93005; 93010; 93306; 94640; 94660; 94762; 96365; 96366; 96372; 96374; 96375; 96376; 99285-25; 99406; A9270; G0378; J0360; J0696; J1650; J1815; J1940; J2920; J2930; J7512

== ENCOUNTER 2024-03-21 09:46 | Emergency (ER) | payer MEDICARE, OTHER ==
[~2024-03-21] VITALS: Ht 165.1 cm; Wt 158.0 kg
[~2024-03-21 09:46] MED LIST changes: +FUROSEMIDE40 MG PO; +INDAPAMIDE1.25 MG PO; +INDAPAMIDE2.5 MG PO; +LOSARTAN POTASS50 MG PO; +MOUNJARO10 MG/0.5 SUB-Q; +ROSUVASTATIN CA10 MG PO
[2024-03-21] MEDS ORDERED: predniSONE 20 MG TAB PO ONE (10:15)
[2024-03-21] MEDS ORDERED: ALBUTEROL/IPRATROPIUM 3 ML NEB INH SCH (10:15)
[2024-03-21 10:30] LABS: BASOPHILS 0.2 % (0-2); EOSINOPHILS 0.6 % (0-6); HEMATOCRIT 29.3 % (35.0-50.0); HEMOGLOBIN 9.5 g/dL (12.0-18.0); LYMPHOCYTES 4.4 % (24-44); MCH 28.2 (27-36); MCHC 32.4 g/dl (30-36); MCV 87.2 fl (81-99); MONOCYTES 4.4 % (0-12); NEUTROPHILS 90.4 % (39-80); PLATELET COUNT 120 K/uL (140-440); RBC 3.36 M/ul (4.3-5.7); RDW 16.3 (10.5-15.0)
[2024-03-21] MEDS ORDERED: FUROSEMIDE 40 MG/4 ML VIAL IV ONE (11:00)
[2024-03-21 11:26] LABS: INFLUENZA B NAA NEGATIVE (NEGATIVE); RESPIRATORY SYNCYTIAL VIR NAA NEGATIVE (NEGATIVE)
[2024-03-21] MEDS ORDERED: PREDNISONE20 MG PO (12:36)
[2024-03-21 13:27] VITALS: BP 120/96
== END 2024-03-21 13:59 | disposition home or self-care (01) ==
LOC: ED 09:46
PROVIDERS: Emergency Medicine
DX: J44.1 Chronic obstructive pulmonary disease with (acute) exacerbation (principal); R79.89 Other specified abnormal findings of blood chemistry; D72.829 Elevated white blood cell count, unspecified; Z99.81 Dependence on supplemental oxygen; E11.9 Type 2 diabetes mellitus without complications; I10 Essential (primary) hypertension; E78.00 Pure hypercholesterolemia, unspecified; Z87.891 Personal history of nicotine dependence; Z88.0 Allergy status to penicillin; Z88.1 Allergy status to other antibiotic agents; Z88.8 Allergy status to other drugs, medicaments and biological substances; Z88.5 Allergy status to narcotic agent; Z79.899 Other long term (current) drug therapy; Z79.51 Long term (current) use of inhaled steroids; Z79.02 Long term (current) use of antithrombotics/antiplatelets; Z79.4 Long term (current) use of insulin; Z79.82 Long term (current) use of aspirin
CPT/HCPCS: 36415; 71045; 83880; 84484; 85025; 87502; 94640; 96374; 99285-25; J1940; J7512; U0002

== ENCOUNTER 2024-04-28 18:08 | Inpatient (IN) | payer MEDICARE, MEDICAID ==
[~2024-04-28] VITALS: Ht 165.1 cm; Wt 155.5 kg
[2024-04-28] MEDS ORDERED: LACTATED RINGER'S 1,000 ML IV PRN (18:15)
[2024-04-28] MEDS ORDERED: CEFTRIAXONE/SODIUM CHLORIDE 1 GM/100 ML PIGGYBACK IV ONE (18:30)
[2024-04-28 18:41] LABS: BASOPHILS 0.2 % (0-2); EOSINOPHILS 0.4 % (0-6); HEMATOCRIT 29.7 % (35.0-50.0); HEMOGLOBIN 9.2 g/dL (12.0-18.0); LYMPHOCYTES 6.3 % (24-44); MCH 26.9 (27-36); MCHC 31.1 g/dl (30-36); MCV 86.5 fl (81-99); MONOCYTES 4.6 % (0-12); NEUTROPHILS 88.5 % (39-80); PLATELET COUNT 158 K/uL (140-440); RBC 3.43 M/ul (4.3-5.7); RDW 17.4 (10.5-15.0)
[2024-04-28 18:55] LABS: ALBUMIN 3.5 g/dL (3.4-5.0); ALBUMIN/GLOBULIN RATIO 0.74 (1.1-2.4); ANION GAP 18.7 (7-21); BILIRUBIN, TOTAL 0.4 ng/dL (0.2-1.0); BUN/CREATININE RATIO 13.55 (6.0-28.6); CALCIUM 8.1 mg/dL (8.5-10.1); CREATININE, SERUM 2.73 mg/dL (0.55-1.02); POTASSIUM 4.7 mmol/L (3.5-5.1); PROTEIN, TOTAL 8.2 g/dL (6.4-8.2)
[2024-04-28 19:01] LABS: LACTIC ACID, BLOOD 2.2 mmol/L (0.4-2.0)
[2024-04-28] MEDS ORDERED: ALBUTEROL/IPRATROPIUM 3 ML NEB INH ONE (19:45)
[2024-04-28 20:30] LABS: BILIRUBIN, URINE NEGATIVE (negative); BLOOD/HGB, URINE SMALL (Negative); KETONE, URINE TRACE (Negative); LEUK ESTERASE, URINE NEGATIVE (negative); NITRITE, URINE NEGATIVE (negative); PH, URINE 5.5 (5-7)
[2024-04-28 20:40] LABS: BACTERIA, URINE RARE /hpf (negative); CRYSTALS, URINE NONE SEEN (0-1+); EPITHELIAL CELLS, URINE SQUAMOUS 1+ /lpf (0-1+); RED BLOOD CELLS, URINE 0-1 /hpf (0-5)
[2024-04-28 20:41] LABS: CASTS, URINE NONE SEEN \\lpf; COLLECTION TYPE, URINE CLEAN CATCH; REFLEX CULTURE, URINE No (No)
[2024-04-28 20:43] LABS: LACTIC ACID, BLOOD 1.3 mmol/L (0.4-2.0)
[2024-04-28] MEDS ORDERED: FUROSEMIDE 40 MG/4 ML VIAL IV ONE (21:00)
[2024-04-28] MEDS ORDERED: ALBUTEROL/IPRATROPIUM 3 ML NEB INH PRN (21:30)
[2024-04-28] MEDS ORDERED: methylPREDNISolone SOD SUCC 125 MG/2 ML VIAL IV SCH (21:37)
[2024-04-28] MEDS ORDERED: ondansetron HCL 4 MG/2 ML VIAL IV PRN (22:15)
--- NOTE | 2024-04-28 22:15 | EKG ---
[facility] [address] [facility] [place] [address] Signed Sinus tachycardia Low voltage QRS Borderline ECG When compared with ECG of 28-NOV-2023 12:35, No significant change was found Confirmed by GERARD FARLEY MD ([id number]) on 04/28/2024 10:15:24 PM Electronically Signed By: GERARD FARLEY 04/28/24 2215 PATIENT NAME: MANNY MORALES Electrocardiogram DATE OF : 70 PHYSICIAN: GERARD FARLEY REPORT #: [id number] REPORT IS CONFIDENTIAL AND NOT TO BE RELEASED WITHOUT AUTHORIZATION
[2024-04-28 22:30] VITALS: BP 149/54
[2024-04-28 22:55] VITALS: BP 156/56
[2024-04-28 23:00] VITALS: BP 148/61
--- NOTE | 2024-04-28 23:00 | NUR ---
Bedside report taken from ED nurse on arrival, pt placed on HF vapotherm, 25L 100% FiO2, satting 94. Titrated down to 80% satting 91. Pt has increased WOB, RR 25-30, reports SOB, no chest pain, Pt later transitioned to BiPAP (03/06). Pt is neurologically in tact, PERRL, moves extremities x4, reports phantom pain in RLE. Pt in Sinus Tach, HR 110s, HTN 140-160 systolic, palpable pulses x3 extremities. Pt has large rounded abdoment, nontender, positive bowel tones, last BM 04/27/24, states normal for BM "every few days". Purewick in place for urine, no output noted. Pt moves well considering amputations and body habitus, helps with turns. Pt is wheelchair bound at [employer] [facility] [employer] [facility] and reports transitions to and from chair/bed/etc on her own, though has help with shopping and other things from both son and mom. Pt states she has an advance directive on file, but states "I need to change it" when asked, what do you need to change, she states "I want everything done. In other words I don't want to ". Listed Carlos Dunne as her POA. Pt is now resting comfortably in bed, states she has no needs at this time.
[2024-04-28 23:30] VITALS: BP 140/53
[2024-04-29] VITALS (25 sets, daily range): BP systolic 119–175; BP diastolic 44–88
--- NOTE | 2024-04-29 00:02 | NUR ---
Pt FiO2 decreased to 35%, pt satting 91%, RR 28, pt appears more comfortable and breathing is less labored. Pt repositioned for comfort and PIP measures. Pt requests sips of water to wet mouth often. No other needs at this time.
--- NOTE | 2024-04-29 00:12 | NUR ---
TALKED WITH ABOUT PATIENT REPORTING SHE WILL NOT TAKE HOSPITAL INSULIN SHE USES A DIFFERENT KIND OF INSULIN, SAID OK FOR PATIENT TO DOSE SELF PER HER HOME S/S WITH HER OWN INSULIN. ORDER PLACED
[2024-04-29] MEDS ORDERED: HUMULIN R U-500 KWIKPEN SUB-Q SCH (00:15)
--- NOTE | 2024-04-29 00:46 | NUR ---
Pt states she does not do correctional doses of insulin and refused any correction this evening. The pharmacy confidential secretary home insulin states 125 units 2x a day and a 300/day max dose. Pt states she takes her insulin, 125 u once in the morning and once in the evening and does not do correctional doses. Pt states she checks her blood glucose every few hours, and does not have issues with it being so high she needs more insulin. Though states that IF it were too high, the correct action would be to take more insulin. She seems unsure about how much for a correctional dose. Pts home med, Joe R, was given a total of 125 units, POC glucose was 380 at that time. Water provider, it is noted that pt desats very quickly with BiPAP off. Recovers fairly quick. current BiPAP settings are 14/7 with a rate of 26bpm, 31% FiO2 satting 91% Pt states no other needs at this time.
[2024-04-29 03:57] LABS: INFLUENZA B NAA NEGATIVE (NEGATIVE); RESPIRATORY SYNCYTIAL VIR NAA NEGATIVE (NEGATIVE)
[2024-04-29 05:27] LABS: HEMATOCRIT 26.8 % (35.0-50.0); HEMOGLOBIN 8.5 g/dL (12.0-18.0); MCH 27.1 (27-36); MCHC 31.7 g/dl (30-36); MCV 85.5 fl (81-99); PLATELET COUNT 138 K/uL (140-440); RBC 3.14 M/ul (4.3-5.7); RDW 17.3 (10.5-15.0)
[2024-04-29 05:45] LABS: ALBUMIN 2.9 g/dL (3.4-5.0); ALBUMIN/GLOBULIN RATIO 0.64 (1.1-2.4); ANION GAP 19.3 (7-21); BILIRUBIN, TOTAL 0.5 ng/dL (0.2-1.0); BUN/CREATININE RATIO 13.58 (6.0-28.6); CALCIUM 7.8 mg/dL (8.5-10.1); CREATININE, SERUM 2.87 mg/dL (0.55-1.02); PHOSPHORUS, INORGANIC 3.2 mg/dL (2.5-4.9); POTASSIUM 4.3 mmol/L (3.5-5.1); PROTEIN, TOTAL 7.4 g/dL (6.4-8.2)
[2024-04-29 06:04] LABS: BANDS, MANUAL DIFF 8; LYMPHOCYTES, MANUAL DIFF 1; MONOCYTES, MANUAL DIFF 3; NEUTROPHILS, MANUAL DIFF 88
--- NOTE | 2024-04-29 06:15 | NUR ---
Pt now has some crackles in bilateral lower lung douglas, VBG ordered, lab sent.
[2024-04-29 06:26] LABS: PH, VENOUS 7.322 (7.31-7.41)
[2024-04-29] MEDS ORDERED: INSULIN LISPRO 100 UNIT/ML ML SUB-Q SCH (08:00)
[2024-04-29] MEDS ORDERED: IBLOOD GLUCOSE TEST STRIP 1 EA TEST VI SCH (08:00)
--- NOTE | 2024-04-29 08:00 | NUR ---
Report received from nightshift RN. Patient resting in bed with Bipap in place, RR even and unlabored. SL at this time. L foot visualized to have open ulcer area, manager market to evaluate today. No needs identified at this time, will continue plan of care for this patient.
[2024-04-29] MEDS ORDERED: hydrALAZINE HCL 20 MG/ML VIAL IV PRN (08:45)
[2024-04-29] MEDS ORDERED: PANTOPRAZOLE SODIUM 40 MG TABEC PO SCH (09:00)
[2024-04-29] MEDS ORDERED: DAPTOmycin 500 MG/10 ML VIAL IV SCH ×2 (09:00)
[2024-04-29] MEDS ORDERED: ENOXAPARIN SODIUM 30 MG/0.3 ML SYR SUB-Q SCH (09:00)
[2024-04-29] MEDS ORDERED: INSULIN GLARGINE-YFGN 100 UNIT/ML ML SUB-Q SCH (09:00)
[2024-04-29] MEDS ORDERED: ENOXAPARIN SODIUM 40 MG/0.4 ML SYR SUB-Q SCH (09:00)
[2024-04-29] MEDS ORDERED: levoFLOXacin 750 MG/150 ML BAG IV SCH ×2 (09:00)
[2024-04-29] MEDS ORDERED: AMLODIPINE BESYLATE 10 MG TAB PO SCH (09:30)
[2024-04-29] MEDS ORDERED: METOPROLOL TARTRATE 50 MG TAB PO SCH (09:33)
[2024-04-29] MEDS ORDERED: LOSARTAN POTASSIUM 50 MG TAB PO SCH (09:33)
--- NOTE | 2024-04-29 09:45 | NUR ---
Scheduled medications administered. Patient accepts the 20 units of LA insulin and her own 125 kwikpen units. IV ABX infusing. Assessment complete. Patient HRR, BP elevated, discussed with Dr Yost to order patients home medications. IV to R arm flushes WNL.
[2024-04-29] MEDS ORDERED: SODIUM CHLORIDE 0.9% 500 ML IV PRN (10:45)
[2024-04-29] MEDS ORDERED: metFORMIN HCL 500 MG TAB PO SCH (10:45)
--- NOTE | 2024-04-29 10:55 | NUR ---
10 additional units administered after PRN recheck of CBG and [address] Yost notified. PO Metformin added to EMAR after verbal order from Dr Yost. Patient informed of change and patient refuses taking this medication, reporting that her upholstery bundler advised her against "metformin, jardiance, HCTZ" specifically. This RN goes through patients home medication rec with patient and verifies all dosages and times. Patient is agreeable to this.
[2024-04-29] MEDS ORDERED: PHARMACY RENAL DOSE ADJUSTMENT 1 DOSE MISC PO SCH (12:00)
[2024-04-29] MEDS ORDERED: Insulin Regular, Human 100 UNIT/ML ML SUB-Q ONE (12:00)
--- NOTE | 2024-04-29 12:00 | NUR ---
PATIENT REFUSED LUMCH MEAL X3. NURSE NOTIFIED.
--- NOTE | 2024-04-29 12:15 | NUR ---
Patient states SOB, requesting neb tx, called RT Krystian, in room to administer
--- NOTE | 2024-04-29 13:15 | NUR ---
Patient resting in bed with eyes closed. Remains on NC, spo2 94%. VSS.
--- NOTE | 2024-04-29 14:51 | NUR ---
Patient up to chair with SBA. Pivot transfer to BS prior to chair, large void >400ml. Shower cap, hair brushed by this RN, oral care and austin care done per pt. Tolerating 4L O2 spo2 95%. VSS. Call light in reach and no needs at this time.
[2024-04-29] MEDS ORDERED: GABAPENTIN 300 MG CAP PO SCH (15:00)
--- NOTE | 2024-04-29 15:59 | NUR ---
Administered scheduled gabapentin. Patient sitting up to chair and states no pain or needs at this time.
--- NOTE | 2024-04-29 16:22 | NUR ---
medications reconciled using pharmacy records and patient interview
--- NOTE | 2024-04-29 17:51 | NUR ---
SS insulin provided per hospital protocol/insulin. Patient agreeable to this. Sitting up in chair after eating dinner. HR 114, BP 135/70, and spo2 96% on chronic o2 dose of 4L NC.
--- NOTE | 2024-04-29 18:42 | NUR ---
Slight rhythm changes noted on telemetry, EKG ordered stat and labs ordered to check for electrolyte imbalances. Patient sitting up in chair, A+O, VSS, HR 113. SPO2 97% on 4L NC O2. BP stable.
--- NOTE | 2024-04-29 19:06 | NUR ---
Updated patient on plan of care with EKG and labs. Patient agreeable to plan. Has no complaints or needs at this time.
[2024-04-29 19:55] LABS: HEMATOCRIT 28.3 % (35.0-50.0); HEMOGLOBIN 8.8 g/dL (12.0-18.0); MCHC 31.2 g/dl (30-36)
[2024-04-29 20:01] LABS: MCH 26.8 (27-36); MCV 85.7 fl (81-99); PLATELET COUNT 154 K/uL (140-440)
--- NOTE | 2024-04-29 20:17 | NUR ---
Report taken from day shift, Pt sitting in chair, Alert and Oriented on 4 L NC and satting in high 90s. Course crackles in bilateral lower lung douglas. Pts HR has been 100-120 since start of shift and is currently afebrile. BP 150 systolic, palpable pulses x3 extremities, bilateral non pitting edema in hands L>R. Bowel tones are active. Pt states she will call when ready to get to bed, and has no needs at this time.
[2024-04-29 20:19] LABS: ANION GAP 17.4 (7-21); BUN/CREATININE RATIO 15.77 (6.0-28.6); CALCIUM 8.4 mg/dL (8.5-10.1); CREATININE, SERUM 2.98 mg/dL (0.55-1.02); POTASSIUM 4.4 mmol/L (3.5-5.1)
[2024-04-29 20:24] LABS: BANDS, MANUAL DIFF 6; BASOPHILS, MANUAL DIFF 1; LYMPHOCYTES, MANUAL DIFF 1; NEUTROPHILS, MANUAL DIFF 92
[2024-04-29] MEDS ORDERED: methylPREDNISolone SOD SUCC 125 MG/2 ML VIAL IV SCH (21:00)
[2024-04-29] MEDS ORDERED: ASPIRIN 81 MG TABEC PO SCH (21:00)
[2024-04-29] MEDS ORDERED: CLOPIDOGREL BISULFATE 75 MG TAB PO SCH (21:00)
[2024-04-29] MEDS ORDERED: AMITRIPTYLINE HCL 25 MG TAB PO SCH (21:00)
[2024-04-29] MEDS ORDERED: DOXAZOSIN MESYLATE 1 MG TAB PO SCH (21:00)
[2024-04-29] MEDS ORDERED: AMITRIPTYLINE HCL 100 MG TAB PO SCH (21:00)
[2024-04-29] MEDS ORDERED: INSULIN REGULAR HUMAN SUB-Q SCH ×2 (21:00)
--- NOTE | 2024-04-29 23:15 | NUR ---
Pt declined 25mg amitriptyline, states she only takes that if the 100 dose does not work. Waiting to non-admin due to potential of giving it later. Med placed back in pt bin. Pt also declined metformin, states she is unable to take per her oncology registrar. Gave pts normal dose of humulin R 500, retook glucose 1 hour later for corrective dose per patient request. repeat required 5 units coverage. see emar. Pt remains in chair, reports no needs at this time.
[2024-04-30] VITALS (13 sets, daily range): BP systolic 101–165; BP diastolic 44–88
--- NOTE | 2024-04-30 01:08 | NUR ---
0100- Pt had used BSC to which she had transferred herself into earlier on shift. while transferring self back to chair from BSC and trying to get self into recliner chair lost her balance and scooted down to floor with her Right lateral side closer to chair. Nate lift used to get pt up back to chair. no injuries noted at this time. Pt pleasant and cooperative. VS done. 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 Pt is morbidly obese too
--- NOTE | 2024-04-30 01:15 | NUR ---
Dr Yost notified via phone by primary RN
--- NOTE | 2024-04-30 02:27 | NUR ---
PT FALL: Harris sound of commode slide across floor, this RN responded, pt states she didn't want help to commode. This RN explained that while in hospital we need to be in room with her during transfers just to be safe, manage lines, etc. Pt states okay, this RN help pt to commode 1x assist without issue. Pt was noted to be strong on transfer and requested minimal help to maintain her own balance. Once on commode pt requested privacy for restroom and stated "this will be more than a second". This RN provided call light and reminded pt to utilize, which she agreed. Pt appropriately utilized call light, both this RN and CATINA Bennett, responded. Pt stood from april, Sabrina on left side wiped pt, noted reddened gluteal fold - this RN left to grab barrier cream. Upon return, cream was applied by Sabrina RN, pt standing, this RN left room. Moments later, This RN's name was waslled out. As I entered room, pt was in sitting position on floor with R. lateral side against chair. CATINA Bennett at pt side. Pt laughingly stated "I fell, you're gonna need more than 2 of you", When asked if pt was injured, she stated "no just landed on my butt, my pride is a little injured" This RN requested help from Barbara dental technology advisor, who joined in room. It was decided to use renu lift, Barbara used Vocera to contact Mansoor Samano and left to grab appropriate renu sling. Barbara Samano Flora and this RN used renu to lift pt back to chair per pt request. No injuries noted, no bruising or discoleration of skin noted, pt states she has no pain as she slid down chair. Post fall huddle completed. Per fall protocol pts own words of event are as follows. "I was just standing there and my leg gave out, ofcourse usually I have my wheelchair and no one in the bathroom with me" when asked are you injured, would you like the provider to see you? Pt states "Nope, I am not injured, maybe I should say my pride" when asked is there anything we could have done to prevent your fall? Pt states "No" when asked do you want us to call and notify anyone? pt states "no" Dr. Yost was notified of fall 117
--- NOTE | 2024-04-30 04:43 | NUR ---
Pt continues to refuse transfering to bed, prefers the chair over the bed. Is placed on BiPAP.
--- NOTE | 2024-04-30 06:20 | NUR ---
20G, 1.75" USIV PLACED 0.5CM IN DEPTH. GOOD BLOOD RETURN, LABS DRAWN. IV FLUSHED WELL. PT TOLERATED WELL. PT STATES NO OTHER NEEDS AT THIS TIME. LABS SENT. CALL LIGHT IN REACH.
[2024-04-30 06:25] LABS: HEMATOCRIT 27.4 % (35.0-50.0); HEMOGLOBIN 8.8 g/dL (12.0-18.0); MCV 84.5 fl (81-99); PLATELET COUNT 167 K/uL (140-440); RBC 3.24 M/ul (4.3-5.7)
[2024-04-30 06:44] LABS: BANDS, MANUAL DIFF 5; LYMPHOCYTES, MANUAL DIFF 4; MONOCYTES, MANUAL DIFF 2; NEUTROPHILS, MANUAL DIFF 89
[2024-04-30 07:15] LABS: ALBUMIN 2.7 g/dL (3.4-5.0); ALBUMIN/GLOBULIN RATIO 0.53 (1.1-2.4); ANION GAP 18.7 (7-21); BILIRUBIN, TOTAL 0.5 ng/dL (0.2-1.0); BUN/CREATININE RATIO 17.77 (6.0-28.6); CALCIUM 8.2 mg/dL (8.5-10.1); CREATININE, SERUM 2.7 mg/dL (0.55-1.02); POTASSIUM 4.7 mmol/L (3.5-5.1); PROTEIN, TOTAL 7.8 g/dL (6.4-8.2)
--- NOTE | 2024-04-30 08:00 | NUR ---
in room white board updated, pt in chair with call light and meal. denies needs.
--- NOTE | 2024-04-30 09:09 | NUR ---
DR FARLEY HERE - V/O TO REDUCE STEROID DOSE. PT UP IN CHAIR. CALL LIGHT IN REACH.
--- NOTE | 2024-04-30 09:28 | NUR ---
PATIENT ALERT AND ORIENTED SITTING UP IN RECLINER. OXYGEN IN PLACE. DEMOGRAPHICS VERIFIED WITH PATIENT. STATES SHE LIVES IN HOUSE WITH FAMILY. HOUSE HAS 2 FLOORS, BUT PATIENT REMAINS ON MAIN LEVEL, DOES NOT USE STAIRS. HAS A WHEELCHAIR, CPAP MACHINE, AND OXYGEN THROUGH [facility]. NO OTHER MEDICAL EQUIPMENT PER PATIENT, AT HOME. DOES NOT DRIVE, FAMILY AND FRIENDS ASSIST WITH TRANSPORTATION. DENIES ISSUES WITH OBTAINING FOOD, MEDICATIONS OR PAYING UTILITIES. INFORMED DR. FARLEY WOULD LIKE TO PRESCRIBE HER A NON-INVASIVE VENT AND INFORMATION WILL BE FAXED TO [facility]. WILL NOTIFY HER IF/WHEN IT IS APPROVED. VERBALIZES UNDERSTANDING. DENIES OTHER NEEDS AT THIS TIME.
--- NOTE | 2024-04-30 09:45 | NUR ---
GAVE PATIENT A BED BATH. PATIENT WASHED HER FACE AND BRUSHED HER TEETH. PATIENT DIDN'T WANT TO WASH HER HAIR SHE SAID SHE DID IT YESTERDAY. NEW SOCK AND GOWN.
[2024-04-30] MEDS ORDERED: methylPREDNISolone SOD SUCC 40 MG/ML VIAL IV SCH ×2 (10:00→21:00)
--- NOTE | 2024-04-30 10:07 | NUR ---
UR CLINICAL REVIEW: 2 MN FOR [facility]ICARE OBS 04/28/24 @ 1809 TO INPT 04/30/24 @ 0840 NO PA REQUIRED PER MEDICARE ANTICIPATE DC IN THE NEXT 1-2 DAYS
--- NOTE | 2024-04-30 11:55 | NUR ---
PT UP IN CHAIR IN ROOM, CALL LIGHT IN REACH. REBECA BIGGS IN ROOM.
--- NOTE | 2024-04-30 12:15 | NUR ---
ORDERS FOR NONINVASIVE VENT, FACESHEET, ER NOTES, PROGRESS NOTES FAXED TO [facility].
--- NOTE | 2024-04-30 14:15 | NUR ---
BEDSIDE REPORT RECIEVED FROM CATINA BRYANT. PT MOVED TO MS ROOM 123 VIA STRETCHER. PT CURRENTLY ON RA, REQUESTING OXYGEN DUE TO FEELING SOB. SPO2 95% ON RA. 4L PLACED FOR PT COMFORT. PT RESTING IN BED, DOESNT APPEAR IN DISTRESS. CALL LIGHT IN REACH.
--- NOTE | 2024-04-30 14:34 | NUR ---
pt to room 123 via bed after report to cj. all items returned to pt from room, pt insulin and kits list meds given to alecia garcia for trsf.
--- NOTE | 2024-04-30 19:01 | NUR ---
PATIENT IN BED RESTING WITH EYES CLOSED. VITALS AND I&O'S DONE AND CHARTED. CALL LIGHT IN REACH. NO FURTHER NEEDS AT THIS TIME.
--- NOTE | 2024-05-01 00:49 | NUR ---
DR FARLEY NOTIFIED OF INCREASED TROPONIN LAB VALUES OF 54.9. AND MAG WNL AT 2.1. "OK, THANKS", NO NEW ORDERS. PT RESTING, ESYS CLOSED, TELE#[address] IN [address] sr NO FURTHER EPISODES OF PVC'S
--- NOTE | 2024-05-01 01:14 | NUR ---
PT AWAKE AND ALERT, ASSISTED UP TO BSC WITH 1PA, VOIDED 900ML YELLOW URINE, BACK TO BED, SITTING ON SIDE OF BED PER REQUESTS, CPOX AND OXYGEN IN PLACE. PT WITHOUT OTHER REQUESTS.
[2024-05-01 02:00] VITALS: BP 140/53
--- NOTE | 2024-05-01 02:02 | NUR ---
neb given on requests, awake, no c/o pain. coop with second assessment and vitals, tele#10 in place, ST rhythm
--- NOTE | 2024-05-01 03:50 | NUR ---
USING BIPAP, REPOSITIONED SEVERAL TIMES, CPOX ON AT BEDSIDE. EYES CLOSED, NO S/SX DISTRESS. TELE#[address], SINUS TACHY.
[2024-05-01 05:42] VITALS: BP 112/35
--- NOTE | 2024-05-01 05:52 | NUR ---
Pt has slept since 99, using BIPOP, sats WNL, pulse has improved down to 60's. tele#[address], SR now. no c/o CP or SOB. turns and repositions self in bed.
--- NOTE | 2024-05-01 07:15 | NUR ---
REPORT RECEIVED FROM AUTO TRANSMISSION TECHNICIAN RN SANGEETHA. PATIENT IS LYING IN BED WITH BIPAP ON. CPOX IS AT THE BEDSIDE. CALL LIGHT AND PERSONAL BELONGINGS ARE WITHIN REACH.
--- NOTE | 2024-05-01 07:39 | EKG ---
[facility] [address] [facility] [place], [place] [address] Signed Sinus tachycardia Otherwise normal ECG When compared with ECG of 28-APR-2024 18:20, No significant change was found Confirmed by GERARD FARLEY MD ([id number]) on 05/01/2024 7:38:57 AM Electronically Signed By: GERARD FARLEY 05/01/24 0739 PATIENT NAME: ORLANDO MORALESHER WILL Electrocardiogram DATE OF : 70 PHYSICIAN: GERARD FARLEY REPORT #: [id number] REPORT IS CONFIDENTIAL AND NOT TO BE RELEASED WITHOUT AUTHORIZATION
[2024-05-01] MEDS ORDERED: levoFLOXacin 750 MG TAB PO SCH (09:15)
[2024-05-01 09:29] VITALS: BP 144/53
[2024-05-01 09:33] VITALS: BP 144/53
[2024-05-01 09:36] VITALS: BP 144/53
--- NOTE | 2024-05-01 09:50 | NUR ---
0800 AND 0900 MEDICATIONS ADMINISTERED PER THE EMAR. FULL ASSESSMENT COMPLETE AND DOCUMENTED IN THE CHART. PATIENT IS ALERT AND ORIENTED TIMES FOUR. PATIENT IS SITTING UPRIGHT IN THE CHAIR AND WATCHING TV AT THIS TIME. LUNG SOUNDS WITH EXPIRATORY WHEEZES IN THE UPPER LOBES BILATERALLY. DIMINISHED AND EXPIRATORY WHEEZES NOTED IN BILATERAL LOWER LUNG LOBES. PATIENT IS ON ROOM AIR. CARDIAC WITH IRREGULAR HR ON AUSCULTATION. PATIENT IS ON TELEMETRY NUMBER 10 WITH A HR OF 67. RADIAL PULSES ARE STRONG BILATERALLY. SENSATION INTACT AND WITH NO COMPLAINTS OF NUMBNESS AND TINGLING. NO COMPLATINS OF PAIN AT THIS TIME. BOWEL TONES ARE ACTIVE IN ALL FOUR QUADRANTS. SKIN WITH ULCER ON THE LEFT FOOT AND TATOOS SCATTERED. 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 IV SITES REMOVED PER VERBAL ORDER FROM . PATIENT WITH NON-PITTING EDEMA NOTED IN THE BILATERAL HANDS AND THE LEFT LOWER EXTREMITY. PATIENT STATED NO FURTHER NEEDS AT THIS TIME. CALL LIGHT AND PERSONAL BELONGINGS ARE WITHIN REACH.
--- NOTE | 2024-05-01 10:49 | NUR ---
PATIENT IS SITTING UPRIGHT IN THE RECLINER AND WATCHING TV. CPOX IS AT THE BEDSIDE. PATIENT STATED NO NEEDS AT THIS TIME WHEN ASKED BY RN. CALL LIGHT AND PERSONAL BELONGINGS ARE WITHIN REACH.
--- NOTE | 2024-05-01 11:17 | NUR ---
PATIENT IS SITTING UPRIGHT IN THE CHAIR AND WATCHING TV. PATIENT SPEAKING WITH AT THIS TIME. PATIENT STATED NO FURTHER QUESTIONS OR CONCERS. CALL LIGHT AND PERSONAL BELONGINGS ARE WITHIN REACH.
[2024-05-01] MEDS ORDERED: LEVOFLOXACIN750 MG PO (11:23)
[2024-05-01] MEDS ORDERED: PREDNISONE20 MG PO (11:25)
[2024-05-02] MEDS ORDERED: predniSONE 20 MG TAB PO SCH (09:00)
== END 2024-05-01 13:10 | disposition home or self-care (01) | DRG 871 ==
LOC: ED 18:08 → CCU 18:09 → MS 04-30 08:40
PROVIDERS: Emergency Medicine; Internal Medicine; ADMIT Internal Medicine; ATTEND Internal Medicine
PROC: 3E03329 Introduction of Other Anti-infective into Peripheral Vein, Percutaneous Approach (ICD-10-PCS; principal; 2024-04-30)
PROC: 5A09357 Assistance with Respiratory Ventilation, Less than 24 Consecutive Hours, Continuous Positive Airway Pressure (ICD-10-PCS; 2024-05-01)
DX: A41.9 Sepsis, unspecified organism (principal); J18.9 Pneumonia, unspecified organism; J44.0 Chronic obstructive pulmonary disease with (acute) lower respiratory infection; Z68.43 Body mass index [BMI] 50.0-59.9, adult; L97.422 Non-pressure chronic ulcer of left heel and midfoot with fat layer exposed; Z66 Do not resuscitate; E66.01 Morbid (severe) obesity due to excess calories; I10 Essential (primary) hypertension; E11.621 Type 2 diabetes mellitus with foot ulcer; E78.00 Pure hypercholesterolemia, unspecified; T38.0X5A Adverse effect of glucocorticoids and synthetic analogues, initial encounter; Z87.891 Personal history of nicotine dependence; Z98.890 Other specified postprocedural states; Z89.511 Acquired absence of right leg below knee; Z95.828 Presence of other vascular implants and grafts; Z89.422 Acquired absence of other left toe(s); Z88.0 Allergy status to penicillin; Z88.1 Allergy status to other antibiotic agents; Z88.8 Allergy status to other drugs, medicaments and biological substances; Z88.5 Allergy status to narcotic agent; Z79.899 Other long term (current) drug therapy; Z79.51 Long term (current) use of inhaled steroids; Z79.891 Long term (current) use of opiate analgesic; Z79.82 Long term (current) use of aspirin
CPT/HCPCS: 36415; 51702; 71045; 73630; 80048; 80053; 81001; 81003; 82803; 83036; 83605; 83735; 83880; 84100; 85025; 87040; 87502; 93005; 93010; 94640; 94660; 94668; 94762; 94799; 96372; 96375; 96376; 99285-25; A9270; G0378; J0696; J1650; J1815; J1940; J1956; J2919; U0002

== ENCOUNTER 2024-05-17 19:02 | Inpatient (IN) | payer MEDICARE, MEDICAID ==
[~2024-05-17] VITALS: Ht 165.1 cm; Wt 157.2 kg
[~2024-05-17 19:02] MED LIST changes: +LEVOFLOXACIN750 MG PO
[2024-05-17] MEDS ORDERED: SODIUM CHLORIDE 0.9% 1,000 ML IV ONE (19:15)
[2024-05-17] MEDS ORDERED: CEFTRIAXONE/SODIUM CHLORIDE 2 GM/100 ML PIGGYBACK IV ONE (19:15)
[2024-05-17] MEDS ORDERED: DAPTOmycin 500 MG/10 ML VIAL IV ONE (19:15)
[2024-05-17 19:19] LABS: BASOPHILS 0.4 % (0-2); HEMOGLOBIN 8.4 g/dL (12.0-18.0)
[2024-05-17 19:21] LABS: HEMATOCRIT 27.1 % (35.0-50.0); LYMPHOCYTES 4.1 % (24-44); MCH 26.3 (27-36); MCHC 30.9 g/dl (30-36); MCV 84.9 fl (81-99); MONOCYTES 3.1 % (0-12); NEUTROPHILS 92.4 % (39-80); PLATELET COUNT 126 K/uL (140-440); RBC 3.19 M/ul (4.3-5.7); RDW 17.1 (10.5-15.0)
[2024-05-17] MEDS ORDERED: ACETAMINOPHEN 500 MG TAB PO ONE (19:30)
[2024-05-17 19:33] LABS: INR 1.21 (0.80-1.30); PROTIME 14.9 Sec (11.2-14.2)
[2024-05-17 19:35] LABS: PARTIAL THROMBOPLASTIN TIME 30.7 Sec (22.9-41.3)
[2024-05-17 19:41] LABS: LACTIC ACID, BLOOD 1.6 mmol/L (0.4-2.0)
[2024-05-17 19:43] LABS: ALBUMIN 3.1 g/dL (3.4-5.0); ALBUMIN/GLOBULIN RATIO 0.72 (1.1-2.4); ANION GAP 18.4 (7-21); BILIRUBIN, TOTAL 0.8 ng/dL (0.2-1.0); BUN/CREATININE RATIO 10.22 (6.0-28.6); CALCIUM 8.4 mg/dL (8.5-10.1); CREATININE, SERUM 2.64 mg/dL (0.55-1.02); POTASSIUM 4.4 mmol/L (3.5-5.1); PROTEIN, TOTAL 7.4 g/dL (6.4-8.2)
[2024-05-17 20:22] LABS: BILIRUBIN, URINE NEGATIVE (negative); BLOOD/HGB, URINE MODERATE (Negative); KETONE, URINE TRACE (Negative); LEUK ESTERASE, URINE NEGATIVE (negative); NITRITE, URINE NEGATIVE (negative); PH, URINE 6.5 (5-7)
[2024-05-17 20:29] LABS: EPITHELIAL CELLS, URINE SQUAMOUS 2+ /lpf (0-1+)
[2024-05-17 20:30] LABS: BACTERIA, URINE RARE /hpf (negative); CASTS, URINE NONE SEEN \\lpf; CRYSTALS, URINE NONE SEEN (0-1+); REFLEX CULTURE, URINE No (No); WHITE BLOOD CELLS, URINE 0-1 /HPF (0-5)
[2024-05-17 20:48] LABS: INFLUENZA B NAA NEGATIVE (NEGATIVE); RESPIRATORY SYNCYTIAL VIR NAA NEGATIVE (NEGATIVE)
[2024-05-17] MEDS ORDERED: IBLOOD GLUCOSE TEST STRIP 1 EA TEST VI SCH (21:00)
[2024-05-17] MEDS ORDERED: GLUCAGON,HUMAN RECOMBINANT 1 MG/ML VIAL SUB-Q PRN (21:00)
[2024-05-17] MEDS ORDERED: ACETAMINOPHEN 325 MG TAB PO PRN (21:00)
[2024-05-17] MEDS ORDERED: PROCHLORPERAZINE EDISYLATE 10 MG/2 ML VIAL IV PRN (21:00)
[2024-05-17] MEDS ORDERED: IBLOOD GLUCOSE TEST STRIP 1 EA TEST XX PRN (21:00)
[2024-05-17] MEDS ORDERED: ondansetron HCL 4 MG/2 ML VIAL IV PRN (21:00)
[2024-05-17] MEDS ORDERED: INSULIN LISPRO 100 UNIT/ML ML SUB-Q SCH (21:00)
[2024-05-17] MEDS ORDERED: LACTATED RINGER'S 1,000 ML IV ONE (21:00)
[2024-05-17] MEDS ORDERED: AZITHROMYCIN 500 MG in DEXTROSE 5% 250 ML IV SCH (21:00)
[2024-05-17] MEDS ORDERED: DEXTROSE 50% 50 ML SYR IV PRN ×2 (21:00)
[2024-05-17] MEDS ORDERED: DEXTROSE 5% 1,000 ML IV PRN (21:00)
[2024-05-17] MEDS ORDERED: predniSONE 20 MG TAB PO SCH (21:05)
[2024-05-17] MEDS ORDERED: LACTATED RINGER'S 1,000 ML IV SCH (21:45)
[2024-05-17 21:48] VITALS: BP 176/59
--- NOTE | 2024-05-17 21:48 | NUR ---
pt ARRIVED TO MS FLOOR, BROUGHT TO FLOOR BY THIS RN. pt A/O, VS COLLECTED. PUREWICK IN PLACE, pt TRANSFERRED TO MS BED VIA 3PA WITH TRANSFER SHEET. 5L OM IN PLACE, RT BINH TO COME TO FLOOR AND SET pt UP ON BIPAP PER RT. CALL LIGHT IN REACH.
--- NOTE | 2024-05-17 21:48 | NUR ---
PATIENT ARRIVED TO UNIT VIA STRETCHER. 3 PA ASSIST TO SHEET/SLIDE TRANSFER PATIENT ONTO UNIT BED. LUNGS DIM THOUGHOUT WITH EXPIRATORY WHEEZING NOTED IN UPPER LOBES. IV SITE PATENT BLOUS RUNNING AT THIS TIME. PATIENT DENIES ANY PAIN OR DISCOMFORT AT THIS TIME. BOWEL TONES ACTIVE X 4 XQUADRANTS. NOTED A BRUISE TO PATIENTS ABD SMALL IN SIZE. REDNESS NOTED TO LLE ON INNER THIGH ALONG WITH PETECHI LOOKING RASH IN THE SAME AREA. AREA WAS OUTLINED TO MONITOR. LLE BELOW THE KNEE WITH REDNESS EDEMA +3 AND SCALING DRY SKIN. BLOOD SUGAR TAKEN, HS MEDICATINOS ADMINISTERED SEE JAN. IV SITE FLUSHED AND WNL. PTIWNT WITH PUREWICK IN PLACE. RT IN WITH PATIENT. NOW ON BIPAP WITH CPOX IN PLACE. READINGS WNL AT THIS TIME. NO FURTHER NEEDS CALL LIGHT WITHIN REACH.
--- NOTE | 2024-05-17 22:14 | NUR ---
ADMISSION COMPLETED, BEDSIDE REPROT GIVEN TO PRIMARY RN FALLON AT THIS TIME. RT BINH IN ROOM SETTING UP pt FOR BIPAP. CALL LIGHT IN REACH. SETTINGS PER RT.
[2024-05-17] MEDS ORDERED: AZITHROMYCIN 500 MG VIAL ONE (22:37)
[2024-05-17] MEDS ORDERED: guaiFENesin 600 MG TABCR PO PRN (23:30)
[2024-05-17] MEDS ORDERED: BENZONATATE 100 MG CAP PO PRN (23:30)
--- NOTE | 2024-05-17 23:37 | NUR ---
IV ABX AND MAINTANCE FLUIDS HUNG. PATIENT DENIES ANY PAIN OR DISCOMFORT AT THIS TIME. CPOX READINGS WNL. BIPAP WNL. CALL LIGHT WITHIN REACH.
[2024-05-17 23:55] VITALS: BP 176/59
[2024-05-18] VITALS (10 sets, daily range): BP systolic 107–153; BP diastolic 45–83
--- NOTE | 2024-05-18 01:36 | NUR ---
NOTED PATIENT'S PLANTAR ULCER TO LEFT LATERAL FOOT. WOUND WITH NO NOTED DRAINAGE AT THIS TIME. MEASURING 1.6CM X 1.5CM. WOUND BED IS RED IN COLOR. WOUND WAS COVERED WITH A NON ADHEARENT AND SECURED WITH TAPE. PATIENT REPORTS NO PAIN TO THE AREA.
--- NOTE | 2024-05-18 01:51 | NUR ---
PATIENT VSS, NOTED TEMPERATURE ELEVATED. PRN GIVEN SEE MAR. PATIENT WITH INCREASED RESPIRATIONS. COUGHING NOTED. PATIENT DENIED WANTING MUCINEX OR TESSALON PERLES. LUNG SOUNDS WITH EXPIRATORY WHEEZING NOTED IN UPPER LOBES, LOWER LOBES DIM.
[2024-05-18] MEDS ORDERED: ALBUTEROL SULFATE 0.083% 3 ML VIAL ONE (02:10)
[2024-05-18] MEDS ORDERED: ALBUTEROL SULFATE 0.083% 3 ML VIAL INH PRN (02:15)
--- NOTE | 2024-05-18 02:36 | NUR ---
RT IN WITH PATIENT TO ASSESS AND TREAT.
--- NOTE | 2024-05-18 03:30 | NUR ---
PUREWICK CHANGED, BREIF CHANGED. NOTED REDNESS UNDER PANNUS. MOISTURE ASSOCIATED SKIN BREAKDOWN NOTED TO GLEUTEAL CLEFT. BARRIER CREAM APPLIED. MD IN TO SEE PATIENT. IVF STOPPED AT THIS TIME PER MD.
[2024-05-18] MEDS ORDERED: ALBUTEROL/IPRATROPIUM 3 ML NEB INH PRN (03:45)
[2024-05-18 05:30] LABS: BASOPHILS 0.2 % (0-2); HEMATOCRIT 24.1 % (35.0-50.0); HEMOGLOBIN 7.4 g/dL (12.0-18.0); LYMPHOCYTES 3.3 % (24-44); MCH 26.4 (27-36); MCHC 30.8 g/dl (30-36); MCV 85.6 fl (81-99); MONOCYTES 2.6 % (0-12); NEUTROPHILS 93.9 % (39-80); PLATELET COUNT 101 K/uL (140-440); RBC 2.81 M/ul (4.3-5.7); RDW 17.6 (10.5-15.0)
[2024-05-18 05:48] LABS: ALBUMIN 2.6 g/dL (3.4-5.0); ALBUMIN/GLOBULIN RATIO 0.63 (1.1-2.4); ANION GAP 16.8 (7-21); BUN/CREATININE RATIO 10.7 (6.0-28.6); CALCIUM 7.7 mg/dL (8.5-10.1); CREATININE, SERUM 2.71 mg/dL (0.55-1.02); MAGNESIUM 1.6 mg/dL (1.8-2.4); PHOSPHORUS, INORGANIC 3.9 mg/dL (2.5-4.9); POTASSIUM 4.8 mmol/L (3.5-5.1); PROTEIN, TOTAL 6.7 g/dL (6.4-8.2)
--- NOTE | 2024-05-18 06:15 | NUR ---
PATIENT RESTING IN BED WITH EYES CLOSED. BIPAP IN PLACE. VS AND I&Os OBTAINED AND RECORDED. PATIENT HAS NO FURTHER NEEDS. CALL LIGHT IN REACH.
--- NOTE | 2024-05-18 07:30 | NUR ---
RECEIVED REPORT FROM CATINA LEHMAN. PT RESTING IN BED WITH EYES CLOSED, BIPAP ON AND CONNECTED TO PT, CPOX REMAINS IN PLACE. SKIN CHECK WITH VICE PRESIDENT [employer] RN COMPLETED AT THIS TIME, L FOOT REMAINS COVERED WITH ABD PAD AND TAPE, NO DRAINAGE PRESENT. CELLULITIS AREA REMAINS WITHIN MARKED AREA. CALL LIGHT WITHIN REACH.
[2024-05-18] MEDS ORDERED: CEFEPIME HCL/D5W 1 GM/100 ML PIGGYBACK IV SCH (08:00)
[2024-05-18] MEDS ORDERED: BUDESONIDE 0.5 MG/2 ML VIAL INH SCH (08:15)
--- NOTE | 2024-05-18 08:17 | NUR ---
PATIENT IS RESTING IN BED. CALL LIGHT WITHIN REACH, NO FURTHER NEEDS AT THIS TIME.
--- NOTE | 2024-05-18 08:27 | NUR ---
PT LYING IN BED, AWAKENS TO THIS RN SPEAKING. PT REFUSES BREAKFAST TRAY AT THIS TIME. PT DENIES PAIN OR SOB AT THIS TIME. PT REMAINS ON BIPAP AT 40% O2 D/T PT STATING SHE WOULD LIKE TO CONTINUE TO REST AT THIS TIME. EDEMA 2+ PITTING ON LLE, REDNESS CONTINUES TO LLE, WITHIN MARKED AREAS. PT ABLE TO ROLL SELF TO SIDE, MOISTURE ASSOCIATED BREAKDOWN REMAINS PRESENT IN GLUTEAL CLEFT, BARRIER CREAM IN PLACE FROM YARN WEIGHT AND STRENGTH TESTER, DESENEX POWDER NOT YET AVAILABLE. PUREWICK REMAINS IN PLACE, YARN WEIGHT AND STRENGTH TESTER RN STATES LAST CHANGED AT 0330. PT STATES NO CURRENT NEEDS, CALL LIGHT WITHIN REACH.
[2024-05-18] MEDS ORDERED: MAGNESIUM SULFATE 2 GM/50 ML BAG IV ONE (09:00)
[2024-05-18] MEDS ORDERED: MICONAZOLE NITRATE 1 EA BTL TOP SCH (09:00)
[2024-05-18] MEDS ORDERED: CEFEPIME HCL/D5W 2 GM/100 ML PIGGYBACK IV SCH (09:00)
[2024-05-18] MEDS ORDERED: ENOXAPARIN SODIUM 40 MG/0.4 ML SYR SUB-Q SCH (09:00)
[2024-05-18] MEDS ORDERED: ENOXAPARIN SODIUM 30 MG/0.3 ML SYR SUB-Q SCH (09:00)
[2024-05-18] MEDS ORDERED: ALBUTEROL/IPRATROPIUM 3 ML NEB ONE (09:20)
--- NOTE | 2024-05-18 09:24 | NUR ---
MED REC COMPLETE
--- NOTE | 2024-05-18 09:36 | NUR ---
PT SITTING UP IN BED, DENIES PAIN OR SOB. RT AT THE BEDSIDE. PT STATES NO NEEDS AT THIS TIME, CALL LIGHT WITHIN REACH.
--- NOTE | 2024-05-18 09:54 | NUR ---
ATTEMPT TO COMPLETE ASSESSMENT. PATIENT CURRENTLY ON BIPAP. WILL RETURN WHEN RESPIRATORY STATUS HAS IMPROVED SO PATIENT MAY COMMUNICATE BETTER.
--- NOTE | 2024-05-18 10:00 | NUR ---
PT TAKEN OFF BIPAP, PLACED ON 4L O2 VIA OXIMASK. PT STATES SHE NEEDS TO HAVE A BM. PHYSICAL THERAPY TO THE BEDSIDE. PT PIVOTS TO BSC, REFUSES GAIT BELT, SUCCESFULLY TRANSFERS VIA PIVOT INDEPENDENTLY. PT STATES SHE WOULD LIKE PRIVACY FOR BM, GIVEN CALL LIGHT, PT VERBALIZES UNDERSTANDING OF USING CALL LIGHT TO TRANSFER WHEN DONE WITH BM. CALL LIGHT WITHIN REACH.
--- NOTE | 2024-05-18 10:25 | NUR ---
PT UP TO CHAIR, STATES NO NEEDS AT THIS TIME, CALL LIGHT WITHIN REACH.
--- NOTE | 2024-05-18 10:52 | NUR ---
UR CLINICAL REVIEW: 2MN [facility] INPT CRITERIA FOR SEPSIS, CELLULITIS AND PNEUMONIA MEDICARE INPT 05/17/24 @ 2055 ORDER MATCHES STATUS NO AUTH REQUIRED PER MEDICARE RULES PLAN TO DC TO HOME WHEN READY. 05/21/24
--- NOTE | 2024-05-18 11:24 | NUR ---
ROUNDING ON PATIENT, PT RESTING IN CHAIR WITH EYES CLSOED, RESPIRATIONS EVEN AND UNLABORED, AWAKENS EASILY. CALL LIGHT IN REACH.
[2024-05-18] MEDS ORDERED: ALBUTEROL/IPRATROPIUM 3 ML NEB INH SCH (12:00)
[2024-05-18] MEDS ORDERED: PHARMACY RENAL DOSE ADJUSTMENT 1 DOSE MISC PO SCH ×2 (12:00)
--- NOTE | 2024-05-18 12:31 | NUR ---
NOTIFIED DR WILKS OF BLOOD GLUCOSE OF 404 BEFORE LUNCH, WITH ORDERS FOR 11 UNITS, STATED HE WOULD PLACE ORDERS.
[2024-05-18] MEDS ORDERED: INSULIN GLARGINE-YFGN 100 UNIT/ML ML SUB-Q SCH ×2 (12:45→21:00)
--- NOTE | 2024-05-18 14:12 | NUR ---
PT UP TO CHAIR RESTING WITH EYES CLOSED, RESPIRATIONS EVEN AND UNLABORED, 4L O2 VIA NC REMAINS IN PLACE WITH SATURATION >94%. PT AND THIS RN COMPLETE MRI SCREENING FORM. PT STATES NO FURTHER NEEDS AT THIS TIME, CALL LIGHT WITHIN REACH.
--- NOTE | 2024-05-18 15:11 | NUR ---
PATIENT IN CHAIR AT THIS TIME. CERAMIC SAW TENDER AND RN CHANGED [email or web address] AT [phone]. PATIENT WANTED TO STAY IN CHAIR. CALL LIGHT WITHIN REACH, NO FURTHER NEEDS AT THIS TIME.
--- NOTE | 2024-05-18 15:15 | NUR ---
PT UP TO CHAIR. NO CHANGES IN SKIN AT THIS TIME, REDNESS REMAINS WITHIN MARKED AREA, EDEMA UNCHANGED FROM MORNING ASSESSMENT. LEFT FOOT CONTINUES TO BE COVERED, DRESSING C/D/I, NO ORDERS FOR DRESSING CHANGE. PT STATES NO FURTHER NEEDS AT THIS TIME, CALL LIGHT WITHIN REACH.
--- NOTE | 2024-05-18 15:26 | NUR ---
PATIENT RESTING IN RECLINER, EYES CLOSED. ALLOWED TO REST AT THIS TIME. CATINA AWAD, NOTIFIED ASSESSMENT HAS NOT BEEN DONE AND IF NEEDS FOR PATIENT SHOULD COME UP, PLEASE NOTIFY CASE MANAGEMENT.
--- NOTE | 2024-05-18 16:05 | NUR ---
THIS RN UPDATES DR. WILKS ON BLADDER SCAN AMOUNT OF 361. STATES TO STRAIGHT CATH PT. REPEAT BACK PERFORMED.
--- NOTE | 2024-05-18 16:25 | NUR ---
STRAIGHT CATH UTILIZED, 450ML OUT, STRAIGHT CATH REMOVED. WHEN PT WAS TRANSFERRING FROM CHAIR TO BED TO DO STRAIGHT CATH, IV WAS PULLED. PT SUCCESSFULLY PIVOTS FROM CHAIR TO BED. NEW IV ATTEMPTED BY THIS RN, UNSUCCESSFUL. ULTRASOUND IV PLACED BY CATINA MENENDEZ. PT STATES NO FURTHER NEEDS AT THIS TIME, CALL LIGHT WITHIN REACH. RT AT THE BEDSIDE.
--- NOTE | 2024-05-18 18:18 | NUR ---
PT PIVOTS TO CHAIR, STATES NO NEEDS AT THIS TIME, CALL LIGHT WITHIN REACH.
--- NOTE | 2024-05-18 20:51 | NUR ---
Pt up in chair, seen by wound RN
[2024-05-18] MEDS ORDERED: DAPTOmycin 500 MG/10 ML VIAL IV SCH (21:00)
--- NOTE | 2024-05-18 21:10 | NUR ---
PT UP IN CHAIR AT THIS TIME, IN TO CHECK VS PER RN, NO FURTHER NEED AT THIS TIME
--- NOTE | 2024-05-18 21:40 | NUR ---
pT IN CHAIR, ON 4lnc, LUNGS WITH uPPER l LIGHT EXP WHEEZE AND REST FINE CRACKLES. NO C/O SOB AT THAT TIME BUT NOTED SOB WITH EXERTION WHEN MOVING FROM RECLINER CHAIR TO W/C. WILL USE BIPAP AT HS. ABD LARGE SOFT, NONTEDNER. L INNER THICK RED/BRUISED LIKE APPEAREANCE NOTED, AREAS MARKED. TOP OF FOOT SHINY COLORED SOFT AREA, AND MID LOWER CALF WITH CLOSED AREAS SMALL BLISTERS. DRESSING TO L OUTER AREA APPLIED BY WOUND RN TODAY. PT USING PUREWICK, WAS INCONTINENT OF URINE WHEN SNEEZING, SKIN CARE DONE, AND PUREWICK CHANGED. RED UNER PANNUS, POWDER SPPLIED PER ORDERS. PT TOLERATING LIQUIDS WELL. CBG 493. RECEIVED 13 UNITS SS INSULIN AND [address] WILKS NOTIFIED VERBALLY/PERSONNALY ABOUT CBG RESULTS, NO NEW ORDERS OBTAINED. PT BACK TO RECLINER CHAIR, LEGS ELEVATED. CPOX ON AT BEDSIDE. IVF INFUSING W/O PROBLEMS RAC
--- NOTE | 2024-05-18 21:40 | NUR ---
IN PT ROOM FOR WOUND CONSULT ON LEFT LEG AND FOOT. PT QUESTIONED ABOUT PAST CARE AND WHAT HAS WORKED WITH THIS REOCCURING WOUND. PT IS SEEN BY DR DUFF WHO USES IODOSORB, COLLAGEN, OFF LOADING FOAM AND A FOAM DRESSING. PT STATES THIS HAS WORKED TO HEAL THE WOUND IN THE PAST. THIS RN WILL REPEAT THE PREVIOUSLY USED WOUND CARE THAT HAS BEEN SUCCESSFUL ON THE LEFT PLANTAR FOOT. PHOTO CONSENT SIGNED AND PHOTOS TAKEN AND PLACED IN CHART. CLEANSED LEFT INNER THIGH AND LEG CELLULITIS WITH SOAP AND WATER. CLEANSED LOWER LEFT LEG AND SCRUBBED DRY, FLAKEY SKIN WITH SOAP AND WATER. THESE AREAS LEFT OPEN TO AIR. LEFT PLANTAR PRESSURE WOUND 1.4 CM 1.6 CM X 0.2 CM CLEANED WITH SOAP AND WATER. CLEANED WITH WOUND CLEANSER. BASE RED, GRANULATION, EDGES VIABLE, 0.2CM MARGIN REDNESS WITH MILD EDEMA. NO DISCHARGE NOTED. IODOSORB IN WOUND. COLLAGEN DRESSING ON WOUND BASE. FOAM DRESSING CUT TO CREATE AN OFFLOADING BORDER AROUND THE WOUND OUTSIDE OF MARGINS. GENTLE BORDER FOAM DRESSING OVER THE OFFLOADING FOAM TO SECURE. COBAN LIGHTLY WRAPPED AROUND FOOT AND DRESSING TO SECURE. NONSLIP SOCK WHEN AMBULATING. CHANGE DRESSING EVERY 4 DAYS OR PRN IF SOILED.
--- NOTE | 2024-05-18 22:30 | NUR ---
IN FOR PTs ACCU CHECK, RN NOTIFIED PT RESULTS
--- NOTE | 2024-05-18 22:37 | NUR ---
CB 526, Dr Ladd notivied verbally as he was still in the unit. he will write new orders, will have pharmacy check her home Insulin dosage in am.
[2024-05-18] MEDS ORDERED: Insulin Regular, Human 100 UNIT/ML ML SUB-Q ONE (22:45)
--- NOTE | 2024-05-18 22:48 | NUR ---
PT RECEIVED 10 UNITS REGULAR INSULIN PER NEW ORDERS, TEACHING DONE, COOPERATIVE, SHE THINKS SHE DID NOT BROUGHT ENOUGH SYRINGES/NEEDLES FOR HER REGULAR PEN INSULIN DOSAGE. AWARE THAT IT HAS TO BE CHECKED BY PHARMACY IN AM. PT IN CHAIR, NO C/O PAIN, O2 4LNC, LEGS DEPENDENT. AWARE AND INSTRUCTED TO ELEVATE LEGS AGAIN STATED UNDERSTANDING BUT DID NOT ELEVATED. IVF INFUSING
--- NOTE | 2024-05-18 23:22 | NUR ---
AWAKE, WATCHING TV, NO C/O PAIN, ivf INFUSING, REINSTRUCTED TO ELEVATE LEGS,. WILL CONTINUE TO REINFORCE TEACHING TO IMPROVE COMPLIANCE.
[2024-05-19] VITALS (8 sets, daily range): BP systolic 141–153; BP diastolic 39–71
--- NOTE | 2024-05-19 02:18 | NUR ---
Dr Ladd notified via phone about pts CBG 498. "give SS Insulin as previously order and extra 10 units Regular Insulin x1, may recheck CBG in 2 hours". notified of no lab work ordered earlier when pt's cbg was over 500 as he had been notified. "Its ok, you notified me and we treated it". Pt alert and oriented, in reclainer chair. legs dependent position. Instructed to elevated them again, "Oh Ill do it later". "My BS are going to be this high until I get off prednisone and I get my home Insulin". I run high anyway, Ill let you know when it makes me feel bad"
[2024-05-19] MEDS ORDERED: Insulin Regular, Human 100 UNIT/ML ML SUB-Q ONE ×2 (02:30→22:45)
--- NOTE | 2024-05-19 02:49 | NUR ---
PT INSTRUCTED ON EXTRA DOSAGE OF SS INSULIN AND REGULAR INSULIN WITH CHECKING CBG IN 2 HOURS PER NEW ORDERS, STAED UNDERSTANDING. IN CHAIR, LEG ELEVATED, INCREAED EDEMA NOTED BELOW INNER KNEE AREA AND NOW BOTH HANDS. HANDS ELEVATED IN ARM REST. NO C/O PAIN
--- NOTE | 2024-05-19 03:44 | NUR ---
PT STATED SHE IS READY FOR BED. LAYING ON RECLINER CHAIR, LEGS ELEVATED HELPED SELF FROM CHAIR TO BED. MINIMUM OF ASSIST. ON 4LNC, CPOX SATS 94-96%, SLIGHT SOB WITH EXERTION NOTED. LUNGS DIM T/O NO COUGH. BACK TO BED, REPOSITIONED SELF IN BED, PUREWICK IN PLACE, DRAINING DARK YELLOW URINE. RED/BRUISED AREA INNER L THICK TO UPPER MID CALF NO CHANGES. EDEMA FROM THIGH LEFT TO MID CALF, ANKLE NAD TOP OF LEFT FOOT, NO CHANGES. EDEMA 1+ BILAT HANDS. SL IV R AC. PT WAS COOPERATIVE, RT NOTIFIED PT WASNT TO USE BIPAP/CPAP. NO C/O PAIN
--- NOTE | 2024-05-19 04:03 | NUR ---
CBG 537, DR WILKS NOTIFIED. " OK TO DO SS INSULIN COVERAGE X1 FOR CBG 537, HAVE PHARMACY REVIEW AND START HER INSULINE PEN HOME DOSAGE IN AM. I WILL SEE HER IN AM. OK TO DRAW BLOOD NOW. NO NEED TO NOTIFY ME IF CRITICAL VALUE I WAS NOTIFIED RIGHT NOW. DO NOTIFY ME IF OVER 560'. LAB NOTIFIED. PT IN BED, WATCHING TV, NO C/O HYPERGLYCEMIA S/SX
--- NOTE | 2024-05-19 04:11 | NUR ---
LAB IN ROOM DRAWING BLOOD. PT IN BED, HOB ELEVATED, USING BIPAP
[2024-05-19 04:15] LABS: BASOPHILS 0.5 % (0-2); EOSINOPHILS 0.5 % (0-6); HEMATOCRIT 22.9 % (35.0-50.0); HEMOGLOBIN 7.2 g/dL (12.0-18.0); LYMPHOCYTES 2.5 % (24-44); MCH 26.8 (27-36); MCHC 31.6 g/dl (30-36); MCV 84.8 fl (81-99); MONOCYTES 2.3 % (0-12); NEUTROPHILS 94.2 % (39-80); PLATELET COUNT 103 K/uL (140-440); RBC 2.69 M/ul (4.3-5.7)
[2024-05-19 04:35] LABS: ALBUMIN 2.6 g/dL (3.4-5.0); ALBUMIN/GLOBULIN RATIO 0.57 (1.1-2.4); ANION GAP 17.9 (7-21); BILIRUBIN, TOTAL 0.5 ng/dL (0.2-1.0); BUN/CREATININE RATIO 15.27 (6.0-28.6); CREATININE, SERUM 2.88 mg/dL (0.55-1.02); POTASSIUM 4.9 mmol/L (3.5-5.1); PROTEIN, TOTAL 7.2 g/dL (6.4-8.2)
--- NOTE | 2024-05-19 07:35 | NUR ---
RECEIVED REPORT FROM CATINA VIVAS. PT RESTING IN BED WITH EYES CLOSED, BIPAP ON AT 40% O2. SKIN ASSESSMENT COMPLETED WITH PHOTOGRAPHY PROFESSOR RN. CALL LIGHT WITHIN REACH.
--- NOTE | 2024-05-19 07:57 | NUR ---
PATIENT SLEEPING IN BED AT THIS TIME. CALL LIGHT WITHIN REACH, NO FURTHER NEEDS AT THIS TIME.
--- NOTE | 2024-05-19 08:40 | NUR ---
PT UP TO WHEELCHAIR TO GO TO MRI. RT AT THE BEDSIDE. WEAKNESS REMAINS IN LLE. LUNG SOUNDS CLEAR IN UPPER LOBES, FINE CRACKLES PRESENT IN LOWER LOBES. LEFT FOOT WOUND REMAINS COVERED, DRESSING C/D/I. REDNESS ON LLE REMAINS WITHIN MARKED AREA, ON POSTERIOR THIGH WELL. PT REMAINS ON 4L O2 VIA NC. PT STATES NO PAIN AT THIS TIME.
--- NOTE | 2024-05-19 08:45 | NUR ---
IMAGING ARRIVES TO TAKE PT TO MRI, PT TRANSFERS VIA PIVOT FROM BED TO WHEELCHAIR, OXYGEN CHANGED TO MOBILE TANK, MOBILE TANK EMPTY AT THIS TIME, NEW MOBILE TANK OBTAINED. PT STATES SHE FEELS SOB, SNEEZES MULTIPLE TIMES. LUNG SOUNDS AT THIS TIME HAVE FINE CRACKLES IN THE BASES, RT TO BEDSIDE TO DO TREATMENT. PT LEAVES UNIT FOR MRI VIA WHEELCHAIR.
--- NOTE | 2024-05-19 09:45 | NUR ---
PT BACK FROM MRI, SITTING UP IN BED. PT STATES SHE WOULD LIKE TO USE THE BSC, PT PIVOTS INDEPENDENTLY TO BSC, VOIDS, PT PIVOTS UP TO CHAIR. NEW PUREWICK PLACED AT THIS TIME. PT STATES NO FURTHER NEEDS AT THIS TIME, CALL LIGHT WITHIN REACH.
[2024-05-19] MEDS ORDERED: INSULIN REGULAR HUMAN SUB-Q SCH (10:00)
--- NOTE | 2024-05-19 10:49 | NUR ---
PT WAS SITTING IN HER RECLINER EATING HER FOOD. INSTRUMENTATION SUPERVISOR RECORDED PT VITAL SIGNS BUT IS WAITING UNTIL PT IS DONE EATING TO RECORD I&OS. PTSTATES NO NEEDS AT THIS TIME AND CALL LIGHT IS WITHIN REACH
--- NOTE | 2024-05-19 11:52 | NUR ---
PT WAS IN MRI SO SHE FINISHED HER BREAKFAST LATE
--- NOTE | 2024-05-19 12:05 | NUR ---
IV ALARMING, RESOLVED. PT REQUESTS TOWEL TO WRAP AROUND IV SITE FOR OCCLUSIONS AND "PULLING", IV SITE WRAPPED WITH TOWEL. PT STATES NO FURTHER NEEDS AT THIS TIME, CALL LIGHT WITHIN REACH.
--- NOTE | 2024-05-19 12:45 | NUR ---
PT UP TO CHAIR, FINISHES LUNCH TRAY, LUNCH TRAY REMOVED. RT TO BEDSIDE. PT STATES NO FURTHER NEEDS AT THIS TIME, CALL LIGHT WITHIN REACH.
--- NOTE | 2024-05-19 13:25 | NUR ---
DR. WILKS TO BEDSIDE DISCUSSING POC WITH PT. PT STATES NO FURTHER NEEDS AT THIS TIME, CALL LIGHT WITHIN REACH.
--- NOTE | 2024-05-19 13:55 | NUR ---
PT HAS NOT HAD ANY URINE OUTPUT FROM THE PUREWICKM SINCE 999. DETAIL SERGEANT REQUESTED TO CHECK THE POSITIONING OF THE PUREWICK. PT REFUSED AND SAID SHE "FELT LIKE IT WAS IN A GOOD SPOT" AND THAT SHE "STILL FEELS DRY AND WANTS TO REST". RN OTIFIED
[2024-05-19] MEDS ORDERED: FUROSEMIDE 40 MG/4 ML VIAL IV SCH (14:00)
[2024-05-19] MEDS ORDERED: GABAPENTIN 300 MG CAP PO SCH (15:00)
--- NOTE | 2024-05-19 15:04 | NUR ---
PT UP TO CHAIR, RESTING WITH EYES CLOSED. O2 4L VIA NC IN PLACE, O2 SATURATION >94%, LLE ELEVATED. CALL LIGHT WITHIN REACH.
--- NOTE | 2024-05-19 15:25 | NUR ---
PT REQUESTS TO WEAR BIPAP TO REST IN CHAIR, BIPAP PLACED AT 40% O2. PT STATES NO FURTHER NEEDS AT THIS TIME, CALL LIGHT WITHIN REACH.
--- NOTE | 2024-05-19 17:21 | NUR ---
PT UP TO BSC WITH PIVOT, VOIDS, PIVOTS BACK TO CHAIR. NEW PUREWICK PLACED. VSS. PT STATES NO NEEDS AT THIS TIME, CALL LIGHT WITHIN REACH.
--- NOTE | 2024-05-19 18:25 | NUR ---
PT UP TO CHAIR, DENIES PAIN OR SOB AT THIS TIME. PT STATES NO NEEDS AT THIS TIME, LLE ELEVATED, CALL LIGHT WITHIN REACH.
[2024-05-19 19:09] LABS: HEMOGLOBIN 7.1 g/dL (12.0-18.0)
--- NOTE | 2024-05-19 19:10 | NUR ---
PT HAD MRI ON L FOOT TODAY. PT CONTINUES TO PIVOT INDEPENDENTLY TO BED, CHAIR AND BSC. PT VOIDING QUANTITY SUFFICIENT. ABX GIVEN PER ORDER. PT DENIES PAIN AND SOB FOR MAJORITY OF SHIFT, RECIEVING BREATHING TREATMENTS. FINE CRACKLES HEARD IN LUNG BASES AT BEGINNING TO MID SHIFT, CLEAR/DIMINISHED LATER IN SHIFT. NO CHANGES TO SKIN THIS SHIFT, DRESSING TO L FOOT C/D/I. PT CONTINUES TO BE ON 4L O2 VIA NC PER BASELINE. PT CALLS APPROPRIATELY. PUREWICK IN PLACE IN CASE OF INCONTINENCE.
[2024-05-19 19:41] LABS: BASOPHILS 0.1 % (0-2); EOSINOPHILS 0.3 % (0-6); HEMATOCRIT 22.6 % (35.0-50.0); LYMPHOCYTES 8.1 % (24-44); MCH 26.4 (27-36); MCHC 31.3 g/dl (30-36); MCV 84.4 fl (81-99); MONOCYTES 3.8 % (0-12); NEUTROPHILS 87.7 % (39-80); PLATELET COUNT 103 K/uL (140-440); RBC 2.68 M/ul (4.3-5.7); RDW 17.4 (10.5-15.0)
--- NOTE | 2024-05-19 19:42 | NUR ---
Pt in recliner chair, legs dependent. O2 4LNC. Pure wick in place. Pt denies c/o pain. lab in room banding pt. RT in room to do jonas tx.
[2024-05-19 20:18] LABS: ABO O; ANTIBODY SCREEN NEGATIVE; RH POSITIVE
--- NOTE | 2024-05-19 20:45 | NUR ---
IN TO GET PTs I&Os, ACCU CHECK, PT THEN ASSISTED TO THE BSC WITH PIVOT, VOIDED, BACK TO THE CHAIR, RAI REPLACED
[2024-05-19] MEDS ORDERED: AMITRIPTYLINE HCL 100 MG TAB PO SCH (21:00)
[2024-05-19] MEDS ORDERED: CLOPIDOGREL BISULFATE 75 MG TAB PO SCH (21:00)
[2024-05-19] MEDS ORDERED: AMITRIPTYLINE HCL 25 MG TAB PO SCH (21:00)
[2024-05-19] MEDS ORDERED: ASPIRIN 81 MG TABEC PO SCH (21:00)
--- NOTE | 2024-05-19 21:06 | NUR ---
Pt in chair, O2 4LNC. pure wick in place, was incontinent, up to BSC, voided large amounts of clear yellow urine. back to chair, legs elevated. iv abx infusing. Cooperative with assessments and vitals. lungs dim with L Upper exp wheezing. no c/o sob and noned noted with exertion. Edema generalized and 1+ hands bilat, L inner thigh petechiae cellulitis no changes. inner thish around back of kneed and upper mid calf present. marked edges. edema below knees area calf, ankles 2+ and front of top of foot, all toes removed previously L foot. Dressing in place L lateral mid foot. RAKA. pt repositions self in chair. No c/o pain, CBG over 400's, no coverage at thist saida. received 20 units Lantus, pt received pen Insulin home dosage earlier. MD to be notified.
--- NOTE | 2024-05-19 22:26 | NUR ---
WATCHING TV, NO C/O PAIN. ON 4LNC, IV ABX INFUSING RAC. CELLULITIS LEGS NO CHANGES, EDEMA TO HANDS NAD L FOOT NO CHANGES, LEG ELEVATED. PURE WICK IN PLACE.
--- NOTE | 2024-05-19 22:53 | NUR ---
DR WILKS NOTIFIED OF [facility] VIA PHONE "SHE RESTARTED HER HOME INSULIN DOSAGE, I WILL WRITE A NEW 1X INSULIN ORDER"
--- NOTE | 2024-05-19 23:09 | NUR ---
PT MEDICATED WITH 30 UNITS REGULAR INSULIN 1X PER MDS ORDERS, PT IN CHAIR, LEGS IN DEPENDENT POSITION, ENECOURAGED TO ELEVATED.
--- NOTE | 2024-05-19 23:20 | NUR ---
ROUNDING ON PT, PT STATED SHE WILL BE READY FOR BED IN A FEW MINUTES, PT IS NOW ASLEEP IN CHAIR WITH LEG ELEVATED, RN OKAY LET REST FOR NOW
[2024-05-20] VITALS (10 sets, daily range): BP systolic 134–153; BP diastolic 52–61
--- NOTE | 2024-05-20 00:09 | NUR ---
resting, eyes closed, O2 4LNC. IV abx infusing. in recliner chair, L leg elevated. edema no changes.
--- NOTE | 2024-05-20 02:30 | NUR ---
Pt in bed, using bipap, no s/sx distress. IV abx infusing, leg elevated
--- NOTE | 2024-05-20 03:21 | NUR ---
Resting, eyes closed, using bipap, no distress. L leg elevated. dressing in place. attends in place.
[2024-05-20 05:33] LABS: BASOPHILS 0.1 % (0-2); EOSINOPHILS 0.1 % (0-6); HEMATOCRIT 22.4 % (35.0-50.0); LYMPHOCYTES 5.9 % (24-44); MCH 26.7 (27-36); MCHC 31.4 g/dl (30-36); MONOCYTES 2.2 % (0-12); NEUTROPHILS 91.7 % (39-80); PLATELET COUNT 92 K/uL (140-440); RBC 2.63 M/ul (4.3-5.7); RDW 17.5 (10.5-15.0)
[2024-05-20 06:06] LABS: ALBUMIN 2.7 g/dL (3.4-5.0); ALBUMIN/GLOBULIN RATIO 0.6 (1.1-2.4); ANION GAP 15.7 (7-21); BILIRUBIN, TOTAL 0.4 ng/dL (0.2-1.0); BUN/CREATININE RATIO 17.35 (6.0-28.6); CALCIUM 8.2 mg/dL (8.5-10.1); CREATININE, SERUM 2.65 mg/dL (0.55-1.02); POTASSIUM 4.7 mmol/L (3.5-5.1); PROTEIN, TOTAL 7.2 g/dL (6.4-8.2)
--- NOTE | 2024-05-20 06:59 | NUR ---
pt using bipap, no distress, IV abx infusing, CBG 398, received her home Insulin dosage of R-500 125 units. coop with vitals and assessment. not using purewick at this time, denies needing to get up and use BSC. cellulitis of L inner thigh area improving, no changes from knee to mid upper calf and back of knee. edema to hands improving, edema to L knobby area of foot no changes,fluid filled blister intact. elevated, cont to encurage pt to elevate L Leg.
--- NOTE | 2024-05-20 07:49 | NUR ---
Board has been updated and call light has been placed within reach. Patient is a one person pivot assist to the bed side cammode
--- NOTE | 2024-05-20 07:50 | NUR ---
RECEIVED REPORT FROM CATINA VIVAS. PT SITTING UP IN BED STATES SHE NEEDS TO USE BSC, PT PIVOTS TO BSC, VOIDS. PT PIVOTS TO CHAIR. PT ON 4L O2 PER BASELINE. PT STATES NO FURTHER NEEDS AT THIS TIME, CALL LIGHT WITHIN REACH.
[2024-05-20] MEDS ORDERED: METOPROLOL TARTRATE 25 MG TAB PO SCH (09:00)
--- NOTE | 2024-05-20 09:24 | NUR ---
PT UP TO CHAIR. PT DENIES PAIN OR SOB AT THIS TIME. PT ENCOURAGED TO ELEVATE LLE, EDEMA REMAINS UNCHANGED FROM THIS RN'S ASSESSMENT YESTERDAY AFTERNOON. POWDER APPLIED UNDER BILAT. BREASTS, PANNUS, AND TO GLUTEAL CLEFT. DRESSING ON L FOOT C/D/I. LUNG SOUNDS HAVE EXPIRATORY WHEEZE, 02 SATURATION >95% ON 3.5L AT THIS TIME. PT HAS RECENTLY RECEIVED BREATHING TREATMENT. PT STATES NO FURTHER NEEDS AT THIS TIME, CALL LIGHT WITHIN REACH.
--- NOTE | 2024-05-20 11:19 | NUR ---
PHYSICAL THERAPY AT THE BEDSIDE.
--- NOTE | 2024-05-20 12:26 | NUR ---
PT UP TO CHAIR EATING LUNCH, STATES NO NEEDS AT THIS TIME. CALL LIGHT WITHIN REACH.
[2024-05-20] MEDS ORDERED: FUROSEMIDE 40 MG/4 ML VIAL IV ONE ×2 (13:30→16:00)
--- NOTE | 2024-05-20 14:58 | NUR ---
PT UP TO BSC, VOIDS, PIVOTS BACK TO CHAIR. PT STATES NO FURTHER NEEDS AT THIS TIME, CALL LIGHT WITHIN REACH.
--- NOTE | 2024-05-20 17:33 | NUR ---
PT UP TO BSC, VOIDS, BACK UP TO CHAIR. PT EATING DINNER AT THIS TIME, STATES NO CURRENT FURTHER NEEDS, CALL LIGHT WITHIN REACH.
--- NOTE | 2024-05-20 18:48 | NUR ---
PT UP TO CHAIR FOR MOST OF SHIFT. LASIX INCREASED THIS SHIFT. BG IMPROVED THIS SHIFT. PT VOIDING QUANTITY SUFFICIENT. CONTINUES TO GET BREATHING TREATMENTS, PT ENDS SHIFT WITH CLEAR/DIMINISHED LUNG SOUNDS. PT CALLS APPROPRIATELY.
--- NOTE | 2024-05-20 19:42 | NUR ---
Up inchair,O2 4L NC in place, no c/o distress. watching tv, leg elevated. no c/o pain
[2024-05-20] MEDS ORDERED: INSULIN GLARGINE-YFGN 100 UNIT/ML ML SUB-Q SCH ×2 (21:00)
--- NOTE | 2024-05-20 21:15 | NUR ---
pt up in chair. CBG 235, dr Ladd notified. new orders to decrease Lantus from 40 to 20 unit. Pt in chair, 4LNC and CPOX at bedside sats 97&. lungs with exp wheezing and clear inspiratory. edema to hands decreased and to L knee area. top of L foot/ankle area no changes. elevated, cont to encourage compliance wth elevation of extremity. RAKA. redness/cellulitis of inner thish improving to upper mid thigh, no changes from midthigh to knees and back of knee and half upper calf. edges marked. SL LAC patent. transferred to C w no help. no sob noted at this time, cooperative with assessment and vitals.
--- NOTE | 2024-05-20 22:02 | NUR ---
in recliner chair, awake, watching tv, leg elevated
--- NOTE | 2024-05-20 23:41 | NUR ---
PT BACK TO BED FROM CHAIR, 1PA. SWITCHNG FROM [id number] TO BIPAP. CPOX AT BEDSIDE WITH SATS 99%, NO SOB NOTED WITH EXERTION. BED WEIGHT DONE AT NURSING JUDGEMENT 157.2KG. IV ABX INFUSING. NOTED INCREAED REDNESS AND EDEMA TO RAKA AREA. OTHERS NO CHAGES, L LEG ELEVATED
[2024-05-21] VITALS (7 sets, daily range): BP systolic 147–154; BP diastolic 51–74
--- NOTE | 2024-05-21 02:22 | NUR ---
RESTING, EYES CLOSED, USING BIPAP, L LEG ELEVATED
[2024-05-21 05:51] LABS: BASOPHILS 0.4 % (0-2); EOSINOPHILS 1.8 % (0-6); HEMATOCRIT 21.2 % (35.0-50.0); HEMOGLOBIN 6.7 g/dL (12.0-18.0); LYMPHOCYTES 20.9 % (24-44); MCH 26.4 (27-36); MCHC 31.4 g/dl (30-36); MONOCYTES 5.8 % (0-12); NEUTROPHILS 71.1 % (39-80); PLATELET COUNT 95 K/uL (140-440); RBC 2.53 M/ul (4.3-5.7)
[2024-05-21 06:13] LABS: ALBUMIN 2.6 g/dL (3.4-5.0); ALBUMIN/GLOBULIN RATIO 0.59 (1.1-2.4); BILIRUBIN, TOTAL 0.4 ng/dL (0.2-1.0); BUN/CREATININE RATIO 18.04 (6.0-28.6); CALCIUM 8.2 mg/dL (8.5-10.1); CREATININE, SERUM 2.66 mg/dL (0.55-1.02)
--- NOTE | 2024-05-21 06:27 | NUR ---
PT SLEPT WELL, O2 4LNC WHEN AWAKE, BIPAP AT HS WHEN IN BED. SPENT MOST OF HER SHIFT IN CHAIR, CONT TO ENCOURAGE TO KEEP L LEG ELEVATED. SL RAC. ERYTHEMA L UPPER THIGH, RESOLVED, MIDLOWER THIGH STILL RED-PETECHIAE LOOKING CELLULITIS DOWN TO AND AROUND BACK OF KEEN AND UPPER MID CALF, PINKISH AREA LOWER CALF AND RAKA STUMPT TO R THIGH NOTED TO BE MORE EDEMATOUS TOO. EDEMA HANDS BILAT IMPROVED, EDEMA AROUND L KNEE IMPROVED, LE AND STUMP NO CHANGES. DRESSING L LATERAL AREA INTACT, NO CHANGES.
--- NOTE | 2024-05-21 06:40 | NUR ---
PT UP TO BSC, VOIDED LARGE AMOUNTS OF URINE. CBG DONE TWICE SHOWED 63 AND 64 SEPARATELY, DIFFERENT FINGER. WILL GIVE JUICE AND NOTIFY DR WILKS, PT DENIES C/O HYPOGLYCEMIA, SITTING EDGE OF BED, AWAKE, ALERT AND ORIENTED
--- NOTE | 2024-05-21 06:49 | NUR ---
DR WILKS NOTIFIED OF PTS CBG OF 63 AND 64. PT DENIES S/SX HYPOGLYCEMIA. SNACKS GIVEN AND IF HE WANTED HER TO STILL GET HER LONG ACTING HOME DOSAGE INSULIN. "LETS BRING HER BS HIGHER, RECHECK AFTER BREAKFAST AND GIVE HER SNACKS. DO NOT GIVE HER 0700 INSULIN AT THIS TIME, I WILL CHECK ON HER HERE SOON'. PT SITTING EDGE OF BED, DENIES S/SX HYPOGLYCEMIA
--- NOTE | 2024-05-21 07:21 | NUR ---
Pt report received from CATINA Santo. Pt is sitting up at the edge of the bed, A&O, 2 RN skin assessment performed at this time with CATINA Bennett and RN Juana Jang. Cellulitis appears to be receding from the outline drawn previously. Skin on LLE is dry and flaky, L foot seems puffy and discolored; however, Sabrina reports it is "less mushy" than yesterday and it seems to be improving. Pt denies needs at this time. Call light in reach.
[2024-05-21] MEDS ORDERED: FUROSEMIDE 40 MG/4 ML VIAL IV SCH (09:00)
--- NOTE | 2024-05-21 09:11 | NUR ---
PATIENT IN CHAIR AT THIS TIME. ELECTROMECHANICAL EQUIPMENT TESTER ASSISTED PATIENT IN CHAIR AND THEN ELECTROMECHANICAL EQUIPMENT TESTER CHANGED BED LINENS. CALL LIGHT WITHIN REACH, NO FURTHER NEEDS TODAY.
--- NOTE | 2024-05-21 10:03 | NUR ---
PATIENT IN CHAIR AT THIS TIME. VITALS AND I&O'S CHARTED. CALL LIGHT WITHIN REACH, NO FURTHER NEEDS AT THIS TIME.
[2024-05-21 10:25] LABS: IS CROSSMATCH COMPATIBLE
--- NOTE | 2024-05-21 10:56 | NUR ---
PATIENT IN CHAIR AT THIS TIME. CROP AND SOIL SCIENTIST ASSISTED PATIENT PIVOTING TO THE COMMODE. CALL LIGHT WAS PLACED WITH PATIENT, CROP AND SOIL SCIENTIST GAVE PATIENT PRIVACY AND TOLD TO CALL WHEN SHE IS DONE.
--- NOTE | 2024-05-21 11:36 | NUR ---
PATIENT ALERT AND ORIENTED. SITTING UP IN RECLINER. STATES SHE LIVES IN 2 STORY HOME, BUT SHE REMAINS ON MAIN LEVEL DUE TO INABILITY TO USE STAIRS. LIVES WITH FAMILY. HAS A WHEELCHAIR, NONINVASIVE VENT, OXYGEN FROM [facility], NEBULIZER AT HOME. STATES SHE DOES NOT DRIVE. FAMILY AND FRIENDS HELP HER WITH TRANSPORTATION. STATES NO ISSUES OBTAINING FOOD OR MEDICATIONS. READMISSION ASSESSMENT COMPLETED. DENIES OTHER NEEDS AT HOME AT THIS TIME.
--- NOTE | 2024-05-21 12:07 | NUR ---
PATIENT IN CHAIR AT THIS TIME. CALL LIGHT WITHIN REACH, NO FURTHER NEEDS AT THIS TIME.
--- NOTE | 2024-05-21 12:16 | NUR ---
VISITED DURING SPIRITUAL CARE ROUNDS. LISTENED EMPATHETICALLY PT TALKED OF PAST PROCEDURES AND IMPACT ON LIFE, EXPRESSED UNDERSTANDING OF CURRENT CONDITION AND PROGNOSIS. PROVIDED SUPPORTIVE PRESENCE, HOSPITALITY, PRAYER. PT EXPRESSED GRATITUDE.
--- NOTE | 2024-05-21 14:10 | NUR ---
Blood obtained from the lab at 1040 hours. Bedside pt verification performed with pt and RN Juana Rasmussen and this RN. Pre VS obtained, blood administration started at 1104 hours. Pt was monitored by this RN and CATINA Jang for the first 15 minutes with no s/sx of reaction. 15min VS obtained and were WNL. Blood administration completed at 1352 hours, without incident. Post transfusion VS obtained and were WNL. Pt denies any complaints.
--- NOTE | 2024-05-21 15:40 | NUR ---
In with pt for med administration per emar. Pt requested we hold the 125 units of her insulin that is scheduled for 1600 hours until dinnertime after her CBG check is scheduled, because she takes it, at home, right before she eats her breakfast and right before she eats her dinner. Pt is sitting up in her chair, legs elevated. Cefepime being administered via pump at this time. Call light in reach.
--- NOTE | 2024-05-21 20:52 | NUR ---
PT CALLED ASKING FOR HELP BACK TO HER CHAIR. PT HAS CALL LIGHT, ICE WATER AND TABLE BACK.
--- NOTE | 2024-05-21 22:34 | NUR ---
PT UP IN CHAIR,O2 4LNC, CPOX AT BEDSIDE, SATS 100%, NO RESP DISTRESS, TITRATED DOWN TO 3.5L, SATS 98-99%, TITRATED AGAIN DOWN TO 3L, SATS 94-97% AT THIS TIME. LUNGS WITH EXP WHEEZING AND DIM AT BASES. NO DISTRESS, UP TO BSC, VOIDED LARGE AMOUNT OF YELLOW URINE. BACK TO CHAIR, SBA, RED AREA UPPER GLUTEAL FOLD, BARRIER CREAM APPLIED. MUCH IMPROVED RED AREA BETWEEN ABD FOLD. dECREAED EDEMA TO HANDS AND L ELBOW. NO CHANGE EDEMA BELOW L KNEE AND ANKLES, FLUID FILLED AREA TOP OF FOREFOOT NO CHANGES. EDEMA/PETECHIA LIKE RASH UPPER L MID THIGH TO KNEE AND AROUND TO POPLITEAL AREA AND UPPER MID CALF MUCH IMPROVED, L LEG ELEVATED. INCREAED EDEMA TO RAKA AREA REDNESS PRESENT, NO CHANGE. ALL AREAS MARKED BOTH THIGHS. CONT TO ENCOURAGE PT TO ELEVATE L LEG. STATED UNDERSTANDING, BRUISED AREA LATERAL ABD HEALING. . CBG 400, DENIES S/SX HYPERGLYCEMIA. IN RECLINER CHAIR, LEG ELEVATED PLAYING VIDEOGAMES IN COMP
--- NOTE | 2024-05-21 23:44 | NUR ---
Up to BSc, voided, back to bed, using BIPAP, no c/o pain, L leg elevated. IV ABX, tolerating well
[2024-05-22] VITALS (8 sets, daily range): BP systolic 143–156; BP diastolic 40–83
--- NOTE | 2024-05-22 01:35 | NUR ---
USING BIPAP, NO DISTRRESS, REPOSITIONS SELF IN BED, LE ELEVATED. IV ABX INFUSING
--- NOTE | 2024-05-22 03:00 | NUR ---
resting, eyes closed, using bipap, no s/sx distress, repositions self in bed, left leg elevated in bed
--- NOTE | 2024-05-22 06:29 | NUR ---
Resting, awakens easily, using BIPAP, no s/sx distress, no changes redness L inner thigh or edema to LE. no changes edema and pinkish colored RAKA. decreased edema to hands noted. IV abd infusing RAC, no c/o adverse reaction. Denies need to get up to BSC. voiding QS. CBG this am was 200 received her home dosage of U-500 Insulin
--- NOTE | 2024-05-22 07:10 | NUR ---
Pt report received from CATINA Santo. Pt is asleep, supine in bed, CPAP on. Breathing is regular, even, and non-labored. Side rails up, call light in reach.
[2024-05-22 07:19] LABS: ANION GAP 14.1 (7-21); BUN/CREATININE RATIO 19.23 (6.0-28.6); CALCIUM 8.2 mg/dL (8.5-10.1); CREATININE, SERUM 2.86 mg/dL (0.55-1.02); POTASSIUM 4.1 mmol/L (3.5-5.1)
[2024-05-22 07:22] LABS: BASOPHILS 0.8 % (0-2); EOSINOPHILS 2.4 % (0-6); HEMATOCRIT 25.2 % (35.0-50.0); HEMOGLOBIN 8.1 g/dL (12.0-18.0); LYMPHOCYTES 19.4 % (24-44); MCH 26.7 (27-36); MCV 83.5 fl (81-99); MONOCYTES 5.7 % (0-12); NEUTROPHILS 71.7 % (39-80); RBC 3.02 M/ul (4.3-5.7); RDW 16.4 (10.5-15.0)
[2024-05-22 07:39] LABS: PLATELET COUNT 105 K/uL (140-440)
--- NOTE | 2024-05-22 08:19 | NUR ---
PATIENT IN BED AT THIS TIME. CALL LIGHT WITHIN REACH, NO FURTHER NEEDS AT THIS TIME.
--- NOTE | 2024-05-22 10:40 | NUR ---
PATIENT IN BED AT THIS TIME. CALL LIGHT WITHIN REACH, NO FURTHER NEEDS AT THIS TIME.
--- NOTE | 2024-05-22 12:08 | NUR ---
Advised by Jodee Dorsey, that patient's CBG was below 70. In with pt for assessment. Pt is sitting up in her chair, watching television, in no apparent distress. Breathing is regular, even, and non-labored. Pt states the only "symptom" she is having is that she gets "hot" when her blood sugar gets too low. She denies any other symptoms. Attempted to do a second CBG check, but was unsuccessful d/t glucometer failure. Pt provided with crackers and peanut butter and was advised that lunch should be coming shortly. Pt understands to use the call light if she feels like her sugars are getting too low because of increased symptoms. Call light in reach.
[2024-05-22 12:20] LABS: RBC, LEUKOREDUCED 18212410642700X
--- NOTE | 2024-05-22 12:20 | NUR ---
Pt. sitting up in chair eating lunch. Pt. states she feels fine and no symptoms of low blood sugar. Pt. did eat crackers and peanut butter she was given for low BG right before lunch.
--- NOTE | 2024-05-22 14:00 | NUR ---
VERBAL ORDER TO D/C LANTUS RECEIVED FROM DR. DEGROOT. PT ADVISED SHE ONLY TAKES 125 UNITS OF THE HUMULIN WITH BREAKFAST AND 125 UNITS HUMULIN JUST BEFORE DINNER DAILY, SHE DOES NOT TAKE ANY OTHER INSULIN. ADVISED DR. DEGROOT OF THIS AND OF HER LOW CBG AT 1140 OF 60 AND WAS ADVISED TO GO AHEAD AND D/C THE LANTUS.
--- NOTE | 2024-05-22 16:32 | NUR ---
PATIENT IN CHAIR AT THIS TIME. CALL LIGHT WITHIN REACH, NO FURTHER NEEDS AT THIS TIME.
[2024-05-22] MEDS ORDERED: INSULIN REGULAR HUMAN SUB-Q SCH (17:00)
--- NOTE | 2024-05-22 17:44 | NUR ---
Pt denies feeling like her blood sugar is low; however, her pre dinner glucose check showed it was at 80. Will recheck her sugars and hour after dinner and reassess. Holding the 125 units of humulin at this time.
--- NOTE | 2024-05-22 18:35 | NUR ---
Pt has been up to the chair for the entire shift, and has kept her legs elevated for the most part, unless she is having a meal. She states it is uncomfortable to eat that way. Pt's CBG checks varied throughout the shift. She was given the 125 units of humulin this morning before breakfast, as well as the 20 units of lantus. By just before lunchtime, her CBG was down to 60 and she said she could "feel it". She was given peanut butter and crackers at her request (she stated that peanut butter always helps her go up), then lunch arrived shortly after that. She was monitored closely the rest of the afternoon and a subsequent CBG check was at 85. Just before dinner, her CBG was down to 80. Her dinner time humulin was held and I will reassess her CBG shortly. She has been voiding well with the lasix and her IV site is intact, flushes well, no pain, swelling, redness or leaking noted.
--- NOTE | 2024-05-22 19:56 | NUR ---
REPORT RECIEVED FROM DAY SHIFT RN. PATIENT RESTING IN CHAIR WATCHING TV. NO CURRENT NEEDS. CALL LIGHT IN REACH.
--- NOTE | 2024-05-22 23:00 | NUR ---
PATIENT RESTING ON CHAIR. SCHEDULED MEDICATION ADMINISTERED. BS OBTAINED AND RECORDED PER PATIENT REQUEST. BS 217. PATIENT REQUESTING INSULIN AT THIS TIME. INSULIN ADMINSITERED, DOUBLE VERIFIED BY BROWN STOCK WASHER. ASSESSMENT COMPLETE. PATIENT TRASFERRED TO [facility]DEP[facility]ENTLY TO VOID YELLOW URINE. PATIENT TRANSFERRED INDEPENDENTLY TO BED. PATIENT DENIES FURTHER NEEDS AT THIS TIME. CALL LIGHT IN REACH.
[2024-05-23] VITALS (7 sets, daily range): BP systolic 152–163; BP diastolic 55–75
--- NOTE | 2024-05-23 01:14 | NUR ---
PATIENT RESTING IN BED WITH EYES CLOSED. CPAP IN PLACE. CALL LIGHT IN REACH.
--- NOTE | 2024-05-23 03:28 | NUR ---
CALL LIGHT ANSWERED. PATIENT UP TO BSC TO VOID. PATIENT BACK TO CHAIR. PATIENT REQUESTING BS CHECK. PRN BS CHECK OBTAINED AND RECORDED. PATIENT DENIES FURTHER NEEDS. CALL LIGHT IN REACH.
--- NOTE | 2024-05-23 06:19 | NUR ---
PATIENT RESTING IN CHAIR. SCHEDULED IV ABX INFUSING PER ORDER. VS AND I&Os OBTAINED AND RECORDED. ASSESSMENT COMPLETE. PATIENT DENIES PAIN OR NEEDS AT THIS TIME. CALL LIGHT IN REACH.
--- NOTE | 2024-05-23 07:10 | NUR ---
RECEIVED REPORT FROM CATINA SHEPHERD. PT RESTING IN CHAIR WITH EYES CLOSED, RESPIRATIONS EVEN AND UNLABORED. CALL LIGHT WITHIN REACH.
--- NOTE | 2024-05-23 08:22 | NUR ---
PATIENT IN CHAIR AT THIS TIME. BLOOD SUGAR TAKEN AND CHARTED. CALL LIGHT WITHIN REACCH, NO FURTHER NEEDS AT THIS TIME.
--- NOTE | 2024-05-23 08:51 | NUR ---
PROJECT ESTIMATOR ASSISTED PATIENT TO BEDSIDE COMMONDE. PROJECT ESTIMATOR RECORDED VOIDINGS AND ASSISTED PATIENT BACK TO CHAIR. CALL LIGHT WITHIN REACH, NO FURTHER NEEDS AT THIS TIME.
--- NOTE | 2024-05-23 09:14 | NUR ---
THIS RN SPEAKS WITH DR. DEGROOT REGARDING PT'S BG OF 150 THIS MORNING IN RELATION TO HER HUMULIN DOSE. MD STATES TO HOLD DOSE OF 125 UNITS AND STATES TO ORDER 50 UNITS ONE TIME THIS MORNING. REPEAT BACK PERFORMED, ORDER ENTERED.
[2024-05-23] MEDS ORDERED: Insulin Regular, Human 100 UNIT/ML ML SUB-Q ONE (09:15)
--- NOTE | 2024-05-23 09:35 | NUR ---
PT UP TO CHAIR AWAKE AND ALERT. PT TAKES PO MEDICATIONS W/O DIFFICULTY. PT DENIES PAIN OR SOB AT THIS TIME. ALLEVYN ON L FOOT COMES OFF WITH PT SOCK, GAUZE AND COBAN APPLIED AT THIS TIME UNTIL DRESSING CHANGE CAN BE DONE TODAY. SWELLING REMAINS IN LLE, SWELLING IN BUE HAS RESOLVED. REDNESS IN LLE DECREASED. LLE ELEVATED IN CHAIR. PT STATES NO FURTHER NEEDS AT THIS TIME, CALL LIGHT WITHIN REACH.
--- NOTE | 2024-05-23 10:06 | NUR ---
PATIENT IN CHAIR AT THIS TIME. RN COLLECTED VITALS AND I&O'S. CALL LIGHT WITHIN REACH, NO FURTHER NEEDS AT THIS TIME.
--- NOTE | 2024-05-23 11:15 | NUR ---
PT UP TO CHAIR. DRESSING CHANGED ON L FOOT PER WOUND CARE ORDER. PT STATES NO PAIN AT THIS TIME. PT STATES NO OTHER NEEDS AT THIS TIME, CALL LIGHT WITHIN REACH.
--- NOTE | 2024-05-23 13:37 | NUR ---
PT UP TO BSC, PT STATES SHE WOULD LIKE SOME TIME TO GO, CALL LIGHT WITHIN REACH, PT STATES SHE WILL CALL WHEN READY.
[2024-05-23] MEDS ORDERED: CEFDINIR300 MG PO (14:37)
--- NOTE | 2024-05-23 15:30 | NUR ---
PT UP TO BSC, BACK TO CHAIR. CEFEPIME RATE OF INFUSION INCREASED TO 100ML/HR PER PHARMACY TO COMPLETE INFUSION PRIOR TO DC. DC EDUCATION AND PACKET GIVEN TO PT, PT STATES ALL QUESTIONS HAVE BEEN ANSWERED AT THIS TIME. PT STATES NO FURTHER NEEDS, CALL LIGHT WITHIN REACH.
--- NOTE | 2024-05-23 16:21 | NUR ---
IV DC'D WNL, WRAPPED IN GAUZE AND COBAN. PT PIVOTS TO PERSONAL WHEELCHAIR. PT DRESSES SELF IN OWN SHIFT AND SCRUB PANTS. PT LEAVING WITH ALL BELONGINGS. PT WHEELED TO FRONT OF BUILDING BY NURSING PERSONEL.
== END 2024-05-23 16:21 | disposition home or self-care (01) | DRG 871 ==
LOC: ED 19:02 → MS 21:24
PROVIDERS: Internal Medicine; ADMIT Family Medicine; ATTEND Family Medicine
PROC: 3E03329 Introduction of Other Anti-infective into Peripheral Vein, Percutaneous Approach (ICD-10-PCS; principal; 2024-05-17)
PROC: 30233N1 Transfusion of Nonautologous Red Blood Cells into Peripheral Vein, Percutaneous Approach (ICD-10-PCS; 2024-05-17)
PROC: 5A09357 Assistance with Respiratory Ventilation, Less than 24 Consecutive Hours, Continuous Positive Airway Pressure (ICD-10-PCS; 2024-05-21)
DX: A41.9 Sepsis, unspecified organism (principal); J18.9 Pneumonia, unspecified organism; L89.893 Pressure ulcer of other site, stage 3; L03.116 Cellulitis of left lower limb; L02.31 Cutaneous abscess of buttock; J44.0 Chronic obstructive pulmonary disease with (acute) lower respiratory infection; N18.4 Chronic kidney disease, stage 4 (severe); Z68.43 Body mass index [BMI] 50.0-59.9, adult; L97.422 Non-pressure chronic ulcer of left heel and midfoot with fat layer exposed; M86.672 Other chronic osteomyelitis, left ankle and foot; E11.621 Type 2 diabetes mellitus with foot ulcer; E11.622 Type 2 diabetes mellitus with other skin ulcer; D63.1 Anemia in chronic kidney disease; E11.22 Type 2 diabetes mellitus with diabetic chronic kidney disease; E11.65 Type 2 diabetes mellitus with hyperglycemia; E66.01 Morbid (severe) obesity due to excess calories; Z66 Do not resuscitate; E11.69 Type 2 diabetes mellitus with other specified complication; E78.00 Pure hypercholesterolemia, unspecified; Z87.891 Personal history of nicotine dependence; Z89.511 Acquired absence of right leg below knee; Z89.411 Acquired absence of right great toe; Z89.421 Acquired absence of other right toe(s); Z98.890 Other specified postprocedural states; Z89.422 Acquired absence of other left toe(s); Z89.412 Acquired absence of left great toe; Z88.1 Allergy status to other antibiotic agents; Z88.8 Allergy status to other drugs, medicaments and biological substances; Z88.5 Allergy status to narcotic agent; Z79.899 Other long term (current) drug therapy; Z79.4 Long term (current) use of insulin; Z79.02 Long term (current) use of antithrombotics/antiplatelets; Z79.891 Long term (current) use of opiate analgesic; Z79.82 Long term (current) use of aspirin; Z99.81 Dependence on supplemental oxygen
CPT/HCPCS: 36415; 51701; 71045; 73630; 73721; 73723; 80048; 80053; 81001; 82553; 83605; 83735; 84100; 85025; 85060; 85610; 85651; 85730; 86140; 86850; 86900; 86901; 86922; 87040; 87502; 93005; 93010; 94640; 94660; 94667; 94668; 94760; 94762; 97162; 97165; 99285-25; A9270; A9577; J0456; J0692; J0696; J0878; J1815; J1940; J3475; J7030; J7060; J7121; J7512; P9016; U0002

== ENCOUNTER 2024-07-29 03:41 | Inpatient (IN) | payer MEDICARE, MEDICAID ==
[2024-07-29] VITALS (7 sets, daily range): BP systolic 132–155; BP diastolic 53–74
[~2024-07-29] VITALS: Ht 165.1 cm; Wt 147.3 kg
[~2024-07-29 03:41] MED LIST changes: +CEFDINIR300 MG PO
[2024-07-29 03:58] LABS: BASOPHILS 0.8 % (0-2); EOSINOPHILS 1.9 % (0-6); HEMATOCRIT 25.2 % (35.0-50.0); HEMOGLOBIN 7.7 g/dL (12.0-18.0); LYMPHOCYTES 13.4 % (24-44); MCH 24.9 (27-36); MCHC 30.7 g/dl (30-36); NEUTROPHILS 77.9 % (39-80); PLATELET COUNT 127 K/uL (140-440); RBC 3.12 M/ul (4.3-5.7); RDW 18.7 (10.5-15.0)
[2024-07-29] MEDS ORDERED: methylPREDNISolone SOD SUCC 125 MG/2 ML VIAL IV ONE (04:00)
[2024-07-29] MEDS ORDERED: ALBUTEROL/IPRATROPIUM 3 ML NEB INH ONE ×2 (04:00→05:15)
[2024-07-29 04:20] LABS: ALBUMIN 3.4 g/dL (3.4-5.0); ALBUMIN/GLOBULIN RATIO 0.69 (1.1-2.4); ANION GAP 15.4 (7-21); BILIRUBIN, TOTAL 0.5 ng/dL (0.2-1.0); BUN/CREATININE RATIO 12.68 (6.0-28.6); CALCIUM 8.8 mg/dL (8.5-10.1); CREATININE, SERUM 2.68 mg/dL (0.55-1.02); POTASSIUM 4.4 mmol/L (3.5-5.1); PROTEIN, TOTAL 8.3 g/dL (6.4-8.2)
[2024-07-29] MEDS ORDERED: AZITHROMYCIN 250 MG TAB PO ONE (04:30)
[2024-07-29] MEDS ORDERED: CEFTRIAXONE/SODIUM CHLORIDE 2 GM/100 ML PIGGYBACK IV ONE (04:30)
[2024-07-29 04:40] LABS: INFLUENZA B NAA NEGATIVE (NEGATIVE); RESPIRATORY SYNCYTIAL VIR NAA NEGATIVE (NEGATIVE)
[2024-07-29 05:01] LABS: LACTIC ACID, BLOOD 0.6 mmol/L (0.4-2.0)
[2024-07-29] MEDS ORDERED: ALBUTEROL/IPRATROPIUM 3 ML NEB ONE (05:11)
[2024-07-29] MEDS ORDERED: ACETAMINOPHEN 325 MG TAB PO PRN (05:15)
[2024-07-29] MEDS ORDERED: FUROSEMIDE 40 MG/4 ML VIAL IV ONE (05:15)
[2024-07-29] MEDS ORDERED: ondansetron HCL 4 MG/2 ML VIAL IV PRN (05:15)
--- NOTE | 2024-07-29 06:15 | NUR ---
PT ARRIVED TO UNIT VIA STRETCHER. HAND OFF REPORT RECIEVED FROM CATINA KENYON. PT VITAL SIGNS STABLE. PT ARIVES ON AVAP. SETTINGS ARE TV 550, RATE 16, O2 50%, EPAP 10. PT TOLERATING WELL WITH SATURATION AT 92%. PT LUNGS ARE DIMINISHED THROUGHOUT. PT EYES ARE CLOSED BUT OPENS TO VERBAL STIMULI. PT ANSWERS QUESTIONS WITH SHAKING HEAD. IV SITES WNL. WOUND ON LEFT LEG OPEN TO AIR. NO NEW ORDERS AT THIS TIME.
[2024-07-29] MEDS ORDERED: ALBUTEROL/IPRATROPIUM 3 ML NEB INH PRN (06:45)
--- NOTE | 2024-07-29 07:10 | NUR ---
LEFT PLANTAR/LATERAL FOOT ULCER CLEANED WITH SOAP AND WATER THEN CLEANED WITH WOUND CLEANSER. 2.4CM X 3.3CM X0.1CM PRESSURE WOUND. BASE IS PINK WITH SCANT SS DRAINAGE. THERE IS A FOUL ODOR IN THE WOUND. EDGES AND PERIWOUND ARE MACERATED. DRESSED WITH IODOSORB, PINK FOAM CUT PERIWOUND TO OFFLOAD. COVERED WITH ALLEVYN. WRAPPED WITH KERLIX AND COBAN. PT TOLERATED WELL. LEFT FOOT TOES HAVE BEEN AMPUTATED, HEELED PT HAS A 0.8CM X 0.8 CM SCAB, LEFT OPEN TO AIR. CHANGE DRESSING EVERY 4 DAYS OR PRN.
--- NOTE | 2024-07-29 07:15 | NUR ---
REPORT RECEIVED FROM VANESSA DOMINIQUE. PATIENT IS LAYING IN BED WIT BIPAP ON. BIPAP IS IN AVAPS MODE. TV-550, RR-16, FIO2-50, EPAP-10. ABGS ORDERED. PATIENT WILL RESPOND TO COMMANDS. OPEN EYES BRIEFLY. DRESSING TO LEFT FOOT INTACT. PUREWICK IN PLACE. REPEAT LASIX DOSE ORDERED. PATIENT DENIES THE NEED TO URINATE, DENIES PAIN OR NAUSEA.USING ABD MUSCLES USED FOR BREATHING.
[2024-07-29] MEDS ORDERED: FUROSEMIDE 40 MG/4 ML VIAL IV STA (07:19)
[2024-07-29] MEDS ORDERED: DEXTROSE 5% 1,000 ML IV PRN (07:30)
[2024-07-29] MEDS ORDERED: GLUCAGON,HUMAN RECOMBINANT 1 MG/ML VIAL SUB-Q PRN (07:30)
[2024-07-29] MEDS ORDERED: DEXTROSE 50% 50 ML SYR IV PRN ×2 (07:30)
[2024-07-29] MEDS ORDERED: IBLOOD GLUCOSE TEST STRIP 1 EA TEST XX PRN (07:30)
--- NOTE | 2024-07-29 07:40 | NUR ---
ABG RESULTS ON 50% FIO2 ON BIPAP. PH-7.29, PCO-47.7, PO2-61, BICARB-22. MD AWARE, RT AWARE.
[2024-07-29 07:49] LABS: BASE EXCESS, BLOOD GAS -3.6 mmol/L (-2-2); HCO3, BLOOD GAS 22.8 mmol/L (22-26); O2 SATURATION, BLOOD GAS 88.3 % (95.0-100.0); OXYGEN RECEIVED, BLOOD GAS 50%; PCO2, BLOOD GAS 47.7 mmHg (35-45); PH, BLOOD GAS 7.29 (7.35-7.45); PO2, BLOOD GAS 61 mmHg (80-100); TOTAL CO2, BLOOD GAS 24.3
[2024-07-29] MEDS ORDERED: ALBUTEROL/IPRATROPIUM 3 ML NEB INH SCH ×2 (08:00→10:00)
[2024-07-29] MEDS ORDERED: IBLOOD GLUCOSE TEST STRIP 1 EA TEST VI SCH (08:00)
[2024-07-29] MEDS ORDERED: ALBUTEROL SULFATE 0.5% 2.5 MG/0.5 ML VIAL INH ONE (08:15)
[2024-07-29] MEDS ORDERED: Insulin Regular, Human 100 UNIT/ML ML SUB-Q ONE ×2 (08:30→10:45)
--- NOTE | 2024-07-29 08:55 | NUR ---
IN ROOM TO INSERT OROZCO CATHETER IN ORDER TO BETTER TRACK OUPUT, PER DR. BROUSSARD. ADRIANA, RN, IN ROOM TO ASSIST. PT FOLLOWED COMMANDS WITH SOME PROMPTING AND TOLERATED INSERTION WELL. PT'S MEATUS APPEARS TO HAVE SOME AREAS OF BROKEN SKIN WITH SOME BLEEDING. UPON INSERTION, 600 CC OF DARK YELLOW URINE OUPUT. CALL LIGHT WITHIN REACH, PREPARING PT TO LEAVE FOR CT.
--- NOTE | 2024-07-29 08:55 | NUR ---
TO CT VIA BED. RT AND NURSING STAFF WITH PATIENT. PT REMAINS ON BIPAP WITH TRANSFER TO CT.
[2024-07-29] MEDS ORDERED: CEFEPIME HCL/D5W 2 GM/100 ML PIGGYBACK IV SCH (09:00)
[2024-07-29] MEDS ORDERED: ENOXAPARIN SODIUM 40 MG/0.4 ML SYR SUB-Q SCH (09:00)
--- NOTE | 2024-07-29 09:17 | NUR ---
TOLERATED CT WELL. BACK TO ROOM. BIPAP TV DECREASED TO [address] SHOWS LARGE PLEURAL EFFUSION OF LEFT WITH RIGHT MIDDLE LOBE COLLAPSE. MD AWARE. CURRENT BIPAP SETTING, TV-400, RR-20, FIO2-70, EPAP-10, BIPAP-IS IN AVAPS MODE. OROZCO CATH IS PATENT. HUMULIN REG INSULIN GIVEN 60 UNITS ORDERED. IV ABX INFUSING. DRESSING TO LEFT FOOT INTACT.
[2024-07-29] MEDS ORDERED: VENTOLIN HFA18 GM INH (09:37)
[2024-07-29] MEDS ORDERED: ARNUITY ELLIP200 MCG INH (09:38)
--- NOTE | 2024-07-29 09:53 | NUR ---
AVAPS DOWN TO VT 350, EPAP 8.
--- NOTE | 2024-07-29 10:00 | NUR ---
ORDERS RECEIVED TO TRANSFER TO HIGHER LEVER OF CARE. Kayleigh SMITH RN ATTEMPTING TO FIND PLACEMENT.
[2024-07-29] MEDS ORDERED: propofoL 100 ML IV ONE ×3 (10:23→12:07)
[2024-07-29] MEDS ORDERED: PHARMACY RENAL DOSE ADJUSTMENT 1 DOSE MISC PO SCH (12:00)
[2024-07-29] MEDS ORDERED: propofoL 100 ML IV SCH (12:15)
[2024-07-29] MEDS ORDERED: FUROSEMIDE 100 MG/10 ML VIAL IV ONE (12:25)
[2024-07-29] MEDS ORDERED: FUROSEMIDE 100 MG/10 ML VIAL ONE (12:26)
--- NOTE | 2024-07-29 12:45 | NUR ---
TO CATHERINE CUELLAR IN [facility].
--- NOTE | 2024-07-29 13:05 | NUR ---
REPORT TO CATHERINE CUELLAR IN [place].
[2024-07-29] MEDS ORDERED: methylPREDNISolone SOD SUCC 40 MG/ML VIAL IV SCH (14:00)
[2024-07-30] MEDS ORDERED: AZITHROMYCIN 500 MG in DEXTROSE 5% 250 ML IV SCH (09:00)
== END 2024-07-29 12:45 | disposition short-term general hospital (02) | DRG 208 ==
LOC: ED 03:41 → MS 05:12 → CCU 05:59
PROVIDERS: Internal Medicine; ADMIT Student in an Organized Health Care Education/Training Program; ATTEND Student in an Organized Health Care Education/Training Program
PROC: 5A1935Z Respiratory Ventilation, Less than 24 Consecutive Hours (ICD-10-PCS; principal; 2024-07-29)
PROC: 5A09357 Assistance with Respiratory Ventilation, Less than 24 Consecutive Hours, Continuous Positive Airway Pressure (ICD-10-PCS; 2024-07-29)
PROC: 4A033R1 Measurement of Arterial Saturation, Peripheral, Percutaneous Approach (ICD-10-PCS; 2024-07-29)
PROC: 0BH17EZ Insertion of Endotracheal Airway into Trachea, Via Natural or Artificial Opening (ICD-10-PCS; 2024-07-29)
DX: J18.9 Pneumonia, unspecified organism (principal); J96.21 Acute and chronic respiratory failure with hypoxia; J96.22 Acute and chronic respiratory failure with hypercapnia; J44.0 Chronic obstructive pulmonary disease with (acute) lower respiratory infection; N18.4 Chronic kidney disease, stage 4 (severe); J44.1 Chronic obstructive pulmonary disease with (acute) exacerbation; I13.0 Hypertensive heart and chronic kidney disease with heart failure and stage 1 through stage 4 chronic kidney disease, or unspecified chronic kidney disease; Z66 Do not resuscitate; E11.22 Type 2 diabetes mellitus with diabetic chronic kidney disease; I50.9 Heart failure, unspecified; E66.01 Morbid (severe) obesity due to excess calories; E78.00 Pure hypercholesterolemia, unspecified; E11.65 Type 2 diabetes mellitus with hyperglycemia; Z99.81 Dependence on supplemental oxygen; Z89.611 Acquired absence of right leg above knee; Z89.412 Acquired absence of left great toe; Z89.422 Acquired absence of other left toe(s); Z87.891 Personal history of nicotine dependence; Z95.820 Peripheral vascular angioplasty status with implants and grafts; Z88.0 Allergy status to penicillin; Z88.1 Allergy status to other antibiotic agents; Z88.5 Allergy status to narcotic agent; Z88.8 Allergy status to other drugs, medicaments and biological substances; Z79.4 Long term (current) use of insulin; Z79.82 Long term (current) use of aspirin; Z79.51 Long term (current) use of inhaled steroids; Z79.02 Long term (current) use of antithrombotics/antiplatelets
CPT/HCPCS: 31500; 36415; 51702; 71045; 71250; 80053; 82803; 83605; 83735; 83880; 84484; 85025; 87502; 94002; 94640; 94644; 94660; 96374; 96375; 99285-25; J0692; J0696; J1650; J1815; J1940; J2704; J2919; U0002